=== PATIENT | female | born 1940 | race Caucasian/White ===

== ENCOUNTER 2017-07-30 07:25 | Inpatient (IN) | payer MEDICARE ==
--- NOTE | 2017-07-25 14:23 | HP ---
HISTORY AND PHYSICAL: DATE OF SURGERY: 07/30/17 DATE OF OFFICE VISIT: 07/24/17 SURGEON: Alejandra Kaur MD * (DICTATED BY SALLY VARGAS) PROCEDURE: Right total knee arthroplasty. CHIEF COMPLAINT: Right knee pain. HISTORY OF PRESENT ILLNESS: Ms. Mccormack is a 77-year-old female with continued complaints of right knee pain. She has failed conservative management, has elected to proceed with a right total knee arthroplasty, which is scheduled for 07/30/17, with Dr. Kaur. PAST MEDICAL HISTORY: Hypertension, high cholesterol, bradycardia, sleep apnea , and hypothyroidism. PAST SURGICAL HISTORY: Breast cyst removal, oophorectomy, cataract removal, diverticula removal, and tonsillectomy. CURRENT MEDICATIONS: 1. Nasonex. 2. Metformin 500 mg twice a day. 3. Allopurinol 100 mg once a day. 4. Valsartan 160 mg once a day. 5. Sertraline 50 mg once a day. 6. Tolterodine tartrate 2 mg twice a day. 7. Atorvastatin calcium 10 mg daily. 8. Levothyroxine 50 mcg daily. 9. Fish oil. 10. Multivitamin. 11. Vitamin C. 12. Calcium and vitamin D. ALLERGIES: SULFA, LEVAQUIN, and CODEINE causing facial swelling. FAMILY HISTORY: Diabetes, heart disease, DVT, and stroke. SOCIAL HISTORY: A 77-year-old female, she lives with her . She does not smokes or use drugs. She uses occasional alcohol. REVIEW OF SYSTEMS: A complete 14-point review of systems was reviewed with the patient and was all negative. PHYSICAL EXAMINATION GENERAL: She is well developed, well nourished, in no acute distress. She is alert and oriented x3, pleasant movement, appropriate effect. VITAL SIGNS: She stands 6 feet 2 inches tall, weighs 220 pounds. Her blood pressure is 142/68, heart rate is 70. HEENT: Normocephalic, atraumatic. NECK: Supple. No palpable lymph nodes. PULMONARY: Lungs are clear to auscultation bilaterally. CARDIO: Regular rate and rhythm. Strong S1 and S2. ABDOMEN: Soft, nontender, and nondistended. NEUROLOGIC: She is alert and oriented x3. Cranial nerves II through XII are intact. MUSCULOSKELETAL: Right lower extremity, the skin is intact. There are no open wounds or abrasions. She has moderate joint effusion and tenderness over the medial and lateral joint line, 5 to 125 degrees range of motion. Her lower extremity muscle group strength is intact at 5/5. She has 2+ dorsalis pedis pulses and intact sensation. ASSESSMENT AND PLAN: Ms. Mccormack is a 77-year-old female with complaints of right knee pain secondary to advanced osteoarthritis. She has failed conservative management and has elected to proceed with a right total knee arthroplasty, which is scheduled for 07/30/[address] Kaur discussed the risks and benefits of the surgery and all of her questions answered. Coumadin, Percocet, and Colace were sent to her pharmacy for postoperative pain control and DVT prophylaxis. She will see Dr. Kaur back 2 weeks after the surgery. SALLY VARGAS [id number]/[facility] #: [id number] EMILY
[~2017-07-30 07:25] MED LIST: Buffered Lidocaine 0.9% SYRIN* 5 ML/SYR SYRINGE INTRADERM ONE; Famotidine IV* 10 MG/ML 2 ML (20 mg) IV ONE; Gabapentin CAP(*) 300 MG PO ONE
[2017-07-30] MEDS ORDERED: Gabapentin CAP(*) 300 MG ONE (07:35)
[2017-07-30] MEDS ORDERED: Buffered Lidocaine 0.9% SYRIN* 5 ML/SYR SYRINGE ONE (07:35)
[2017-07-30] MEDS ORDERED: Famotidine IV* 10 MG/ML 2 ML (20 mg) ONE (07:35)
[2017-07-30] MEDS ORDERED: KETAMINE HCL* 50 MG/ML 10 ML VIAL ONE (07:46)
[2017-07-30] MEDS ORDERED: fentaNYL* 50 MCG/ML 2 ML VIAL (100 MCG VIAL) ONE (07:46)
[2017-07-30] MEDS ORDERED: Morphine PF AMP (0.5MG/ML)* 5 MG/10 ML AMP ONE (07:46)
[2017-07-30] MEDS ORDERED: Midazolam* 1 MG/ML 5 ML VIAL (5 MG) ONE (07:46)
[2017-07-30] MEDS ORDERED: Lidocaine 2% PF * 5 ML VIAL ONE ×2 (07:54→08:42)
[2017-07-30] MEDS ORDERED: Dexamethasone IV* 4 MG/ML 1 ML (4 MG) ONE (07:54)
[2017-07-30] MEDS ORDERED: Ketorolac INJ* 30 MG/ML 1 ML VIAL ONE (07:54)
[2017-07-30] MEDS ORDERED: Ondansetron INJ* 2 MG/ML VIAL ONE (07:54)
[2017-07-30] MEDS ORDERED: Propofol* 10 MG/ML 20 ML BTL IV PUSH ONE ×2 (07:54→11:46)
[2017-07-30] MEDS ORDERED: ceFAZolin 2 GM PREMIX (*) 50 ML IVPB ONE (07:58)
[2017-07-30] MEDS ORDERED: ROPIVACAINE 5 MG/ML 30 ML BTL (0.5%) ONE (08:37)
[2017-07-30] MEDS ORDERED: DiMENhydriNATE IV* 50 MG/ML VIAL IV PUSH PRN (09:33)
[2017-07-30] MEDS ORDERED: oxyCODONE/Acetamin 5/325 MG* TAB PO PRN (09:33)
[2017-07-30] MEDS ORDERED: HYDROmorphone* 1 MG/ML 1 ML CARPUJECT IV PRN (09:33)
[2017-07-30] MEDS ORDERED: Gabapentin CAP(*) 100 MG PO ONE (11:26)
[2017-07-30] MEDS ORDERED: Ondansetron INJ* 2 MG/ML VIAL IV PRN (11:27)
[2017-07-30] MEDS ORDERED: Naloxone* 0.4 MG/ML 1 ML VIAL IV PRN (11:27)
[2017-07-30] MEDS ORDERED: Nalbuphine* 20 MG/ML 1 ML VIAL IV PRN (11:27)
[2017-07-30] MEDS ORDERED: Glycopyrrolate IV* 0.2 MG/ML 1 ML VIAL ONE (11:35)
[2017-07-30] MEDS ORDERED: diPHENhydraMINE IV* 50 MG/ML 1 ml VIAL (BENADRYL) IV PRN (13:15)
[2017-07-30] MEDS ORDERED: Magnesium Hydroxide LIQ* 30 ML UDC PO PRN (13:15)
[2017-07-30] MEDS ORDERED: Bisacodyl SUPP* 10 MG SUPP PR PRN (13:15)
[2017-07-30] MEDS ORDERED: Polyethylene Glycol 3350* 17 GM PACKET PO PRN (13:15)
[2017-07-30] MEDS ORDERED: Dextrose 50% Syringe 50 ML* 25 GM/50 ML SYRINGE IV PUSH PRN (13:58)
--- NOTE | 2017-07-30 14:03 | RAD ---
Indication: Immediate postop exam following RIGHT total knee replacement. Comparison: February 18, 2017 radiographs. Technique: Portable AP and cross table lateral views RIGHT knee. Report: Status post total knee replacement. Surgical drain in place. Post-op fluid and gas is seen in the joint space and anterior subcutaneous tissues. Alignment is anatomic. No periprosthetic fracture evident. IMPRESSION: Unremarkable immediate postoperative appearance following RIGHT knee replacement.
[2017-07-30] MEDS: Ibuprofen TAB* 600 MG PO SCH ×3 (15:50→23:57)
--- NOTE | 2017-07-30 16:18 | CONS ---
CC: Dr. Isidra Salinas; Dr. Kaur * CONSULTATION REPORT: DATE OF CONSULT: 07/30/17 PRIMARY CARE PROVIDER: Dr. Isidra Salinas. ATTENDING PHYSICIAN WHILE IN THE HOSPITAL: Dr. Andrew Larkin (report dictated by Keith Norton NP). REQUESTING PHYSICIAN FOR CONSULT: Dr. Kaur. REASON FOR MEDICAL CONSULTATION: Evaluation of medical management and comorbid medical conditions. HISTORY OF PRESENT ILLNESS: Ms. Mccormack is a 77-year-old female patient who has a history of right knee pain for sometime, failing conservative management, underwent a right total knee replacement yesterday with Dr. Kaur as this was felt to be the next best therapeutic measure for the patient and appropriate measure for the patient. She failed conservative therapy and the pain is affecting daily living. She came with a history of hypertension, hyperlipidemia , bradycardia, NANO, hypothyroidism. She is prediabetic and a history of arthritis. She states that her resting heart rate is noted to be around 50s to the low 60s. Her preop EKG in fact was rate around 50. She was evaluated in the PACU. She said she is not having any chest pain. She denies having any abdominal pain. She does not feel lightheaded. She denies feeling presyncopal. She states that she does not have any chest discomfort. She does not feel short of breath. She states her pain is actually well controlled. She has slight numbness in her left leg, but otherwise states she is feeling quite well and there is no nausea and no vomiting. Because of her medical complexity, we were asked to evaluate in consult. PAST MEDICAL HISTORY: Significant for; 1. Hypertension. 2. Hyperlipidemia. 3. Bradycardia. 4. NANO. 5. Hypothyroidism. 6. History of prediabetes. 7. Arthritis. PAST SURGICAL HISTORY: 1. She has had a breast cyst removal. 2. Oophorectomy. 3. Cataract extraction. 4. Tonsillectomy. 5. She has had a polyp removed from her throat. HOME MEDICATIONS: Her home medications according to the preoperative list include: 1. Vitamin C 1000 mg p.o. daily. 2. Aspirin 81 mg daily. 3. Lipitor 10 mg daily. 4. Calcium citrate 1 tablet p.o. every other day. 5. Centrum Silver 1 tablet p.o. every other day. 6. Ibuprofen 600 mg p.o. b.i.d. as needed. 7. Synthroid 50 mcg p.o. daily. 8. Nasonex 1 spray daily as needed. 9. [place]-3 fatty acid 1 capsule p.o. every other day. 10. Zoloft 50 mg daily. 11. Detrol 2 mg p.o. b.i.d. 12. Diovan 320 mg p.o. daily. 13. Metformin 500 mg p.o. b.i.d. ALLERGIES TO MEDICATIONS: Include; 1. SULFA. 2. CODEINE. 3. LEVAQUIN. FAMILY HISTORY: Mother had a history of an CT and father at the age of 94. SOCIAL HISTORY: She does not smoke, does not drink. Surrogate decision maker is her . REVIEW OF SYSTEMS: There is no documented fever. Denied having any significant weight change. No double vision. No ear discharge. No rhinorrhea. No sore throat. No thyroid enlargement. Denies having any chest pain. There is no orthopnea. No nocturnal dyspnea. There is no abdominal pain. There is no nausea, no vomiting, no dysuria, no frequency, no seizure, no loss of consciousness, no pruritus, and no skin ulcerations. Review of 14 systems completed, all others negative. PHYSICAL EXAM: Vital Signs: Blood pressure 136/75, pulse 44, respirations 16, O2 sat 94%, and temperature 97.5. General: At this time, Ms. Mccormack is a 77- year-old female patient, she appears to be well nourished, well developed, does not appear to be in any acute distress. She is sitting in the PACU bed. HEENT : Head is atraumatic and normocephalic. Eyes: EOMs are intact. Sclerae anicteric and not pale. Neck: Supple. Throat: Oral mucosa appears to be moist. No oropharyngeal erythema. Heart: Sounds S1 and S2, regular rate and rhythm. No murmurs, rubs, or gallops were appreciated. Lungs: Clear to auscultation bilaterally. No wheezes, rales, or rhonchi. Abdomen: Soft, it was flat, nontender. Bowel sounds present. Extremities: Pulses were 2+ throughout. Distal CSM checks are intact to the right lower extremity. Neurologically, the patient is awake, alert, oriented x3. Tongue midline. Food And Beverage Intern are equal. No gross focal deficits. Skin: Grossly intact. DIAGNOSTIC STUDIES/LAB DATA: Preop revealed WBC of 8.1, RBC of 4.21, hemoglobin 13.0, hematocrit of 40, and platelet count of 222. INR 0.90, PTT of 31.9. Sodium was 142, potassium 4.5, chloride 106, bicarb 30, BUN 17, creatinine 0.08, and glucose of 74. Urine was obtained, it was negative. The patient preop did have an echo, which showed an EF of 55% to 60%. She had a preop stress test which showed no reversible ischemia. There was a preop Holter which showed minimum heart rate of 44, max 111, average is 63. There was a preop EKG, which showed a sinus bradycardia, rate of 54. No ST elevation or T-wave inversions. Preop chest x-ray showed no active disease. Old medical records were reviewed. ASSESSMENT AND PLAN: Ms. Mccormack is a 77-year-old female patient coming into the surgical services today for an elective right total knee. We were asked to evaluate in consult. My recommendations at this point are: 1. Status post right total knee. We will defer the management to Dr. Kaur and her team. 2. Hypertension. We will continue her Diovan. 3. Hyperlipidemia. Continue her current medical regimen. 4. History of bradycardia. Her heart rate right now is in the 40s, but she is completely asymptomatic. Her preop heart rate was 54. I suspect that the Duramorph is probably causing this to be a little lower, but she is asymptomatic. I do not think she needs telemetry monitoring. I am getting an EKG now, but on telemetry she does not appear to have any AV blocks. 5. Obstructive sleep apnea. We will go ahead and put her on her CPAP and will follow her O2 saturations for the first 24 hours. We will continue with monitoring. 6. Hypothyroidism. Continue meds as prescribed. 7. History of prediabetes. I will put her on a sliding scale. 8. Arthritis. She can follow up with primary. 9. DVT prophylaxis. We will defer to the primary team. 10. Code status. Full code. 11. Fluids, electrolytes, and nutrition. I would recommend a consistent carb diet. TIME SPENT: Time spent on the consult was approximately 60 minutes, greater than half of that time was spent [id number] with the patient obtaining my history and physical, the other half time was spent going over the plan of care with the patient and implementing plan of care. I did discuss the plan of care with my attending, Dr. Larkin, who is in agreement. KEITH NORTON NP [id number]/[facility] #: [id number] EMILY
[2017-07-30] MEDS ORDERED: Warfarin TAB(*) 6 MG PO ONE (17:00)
[2017-07-30] MEDS: Insulin LISPRO* 1 UNITS UNIT SUBCUT SCH (17:51)
[2017-07-30] MEDS: ceFAZolin 1 GM VIAL(*) 1 GM in NS 0.9% 50 ML* 50 ML IVPB SCH (17:57)
[2017-07-30] MEDS: oxyCODONE/Acetamin 5/325 MG* TAB PO PRN ×2 (17:57→22:02)
[2017-07-30] MEDS ORDERED: metFORMIN* 500 MG TAB PO SCH (21:00)
[2017-07-30] MEDS: Docusate CAP* 100 MG PO SCH (21:44)
[2017-07-30] MEDS: Oxybutynin TAB* 5 MG PO SCH (21:44)
[2017-07-31] MEDS: oxyCODONE/Acetamin 5/325 MG* TAB PO PRN ×5 (02:12→20:43)
[2017-07-31] MEDS ORDERED: Acetaminophen TAB* 325 MG PO PRN (02:28)
[2017-07-31] MEDS ORDERED: Morphine INJ* 4 MG/ML 1 ML CARPUJECT IV PRN (02:29)
[2017-07-31] MEDS ORDERED: oxyCODONE TAB* 5 MG TAB PO PRN (02:29)
[2017-07-31] MEDS: ceFAZolin 1 GM in Dextrose (*) 1 GM/50 ML BAG IVPB SCH ×2 (02:33→10:02)
[2017-07-31] MEDS: ceFAZolin 1 GM VIAL(*) 1 GM in NS 0.9% 50 ML* 50 ML IVPB SCH (03:20)
[2017-07-31] MEDS ORDERED: Ondansetron TAB* 4 MG PO PRN (03:28)
[2017-07-31] MEDS ORDERED: Ondansetron INJ* 2 MG/ML VIAL IV PRN (03:28)
[2017-07-31 05:45] LABS: Hematocrit 29 % (35-47); Hemoglobin 9.6 g/dl (12.0-16.0)
[2017-07-31 05:59] LABS: BUN/Creatinine Ratio 17.1 (8-20); Calcium 8.6 mg/dL (8.6-10.3); EGFR African American 44.8 (>60); EGFR Non-African American 34.8 (>60); Potassium 4.1 mmol/L (3.5-5.0)
[2017-07-31] MEDS: Levothyroxine TAB* 50 MCG TAB PO SCH (06:07)
[2017-07-31] MEDS: Insulin LISPRO* 1 UNITS UNIT SUBCUT SCH ×3 (08:16→17:34)
[2017-07-31] MEDS: Oxybutynin TAB* 5 MG PO SCH ×2 (08:18→20:05)
[2017-07-31] MEDS: Docusate CAP* 100 MG PO SCH ×2 (08:18→20:05)
[2017-07-31] MEDS: Valsartan TAB* 160 MG PO SCH (08:18)
[2017-07-31] MEDS: Atorvastatin* 10 MG TAB PO SCH (08:18)
[2017-07-31] MEDS: Ascorbic Acid TAB* 500 MG PO SCH (08:18)
[2017-07-31] MEDS: Sertraline* 50 MG TAB PO SCH (08:18)
[2017-07-31] MEDS ORDERED: Valsartan TAB* 160 MG PO SCH (09:00)
[2017-07-31] MEDS: Enoxaparin(*) 30 MG/0.3 ML SYR SUBCUT SCH (11:03)
--- NOTE | 2017-07-31 11:52 | PN ---
Progress Note - Progress Note Date of Service: 07/31/17 SOAP: Subjective: [Pt was seen this am sitting up in a chair. She states that her knee is a little painful. She overall feels that she is doing quite well. She denies any n/t. No chest pain, cough or SOB. No calf pain. ] Objective: [General: Pt is alert, awake and oriented. NAD RLE: Dressing is clean, dry and intact. Hemovac drain was pulled today and was found to have 250 ccs of blood. Calf is soft and non tender. + df/pf. NVI. ] Vital Signs Temp 97.7 F 07/31/17 11:12 Pulse 46 07/31/17 11:30 Resp 17 07/31/17 11:12 BP 112/40 07/31/17 11:30 Pulse Ox 94 07/31/17 11:12 Intake & Output 07/30/17 07/31/17 07/31/17 18:59 06:59 18:59 Intake Total 1312 2099 225 Output Total 325 425 200 Balance 987 1674 25 Weight 219 lb 6.4 oz Intake: IV Fluids 1000 1099 ABX - CEFAZOLIN 119 LR 1000 980 Oral 312 1000 225 Output: Georges 325 425 200 Other: # Bowel Movements 0 Assessment: [POD 1 S/P RTKA] Plan: [INR: 0.98, 8mg of warfarin tonight PT/OT Georges out today Dressing change tomorrow. Possible D/C home tomorrow
--- NOTE | 2017-07-31 14:31 | PN ---
Subjective Date of Service: 07/31/17 Interval History: Patient seen and examined at bedside. Reports good pain control from medication Denies chest pain, SOB, fever/chills. No acute concerns at this time. Family History: Unchanged from Admission Social History: Unchanged from Admission Past Medical History: Unchanged from Admission Objective Active Medications: Acetaminophen (Tylenol Tab*) 650 mg PO Q4H PRN PRN Reason: PAIN OR TEMPERATURE Ascorbic Acid (Vitamin C Tab*) 1,000 mg PO QAM [facility] Last Admin: 07/31/17 08:18 Dose: 1,000 mg Atorvastatin Calcium (Lipitor*) 10 mg PO QAM [facility] Last Admin: 07/31/17 08:18 Dose: 10 mg Bisacodyl (Dulcolax Supp*) 10 mg CA DAILY PRN PRN Reason: constipation Dextrose (D50w Syringe 50 Ml*) 12.5 gm IV PUSH .FOR FS < 60 - SS PRN PRN Reason: FS < 60 Diphenhydramine HCl (Benadryl Iv*) 12.5 mg IV Q6H PRN PRN Reason: PRURITIS Docusate Sodium (Colace Cap*) 100 mg PO BID [facility] Last Admin: 07/31/17 08:18 Dose: 100 mg Enoxaparin Sodium (Lovenox(*)) 30 mg SUBCUT Q24H [facility] Last Admin: 07/31/17 11:03 Dose: 30 mg Lactated Ringer's (Lactated Ringers 1000 Ml Bag*) 1,000 mls @ 100 mls/hr IV PER RATE [facility] Last Admin: 07/31/17 12:34 Dose: 100 mls/hr Insulin Human Lispro (Humalog*) 0 units SUBCUT AC [facility] PRN Reason: Protocol Last Admin: 07/31/17 12:21 Dose: Not Given Lactulose (Lactulose*) 30 ml PO Q6H PRN PRN Reason: constipation Levothyroxine Sodium (Synthroid Tab*) 50 mcg PO QAM@0600 [facility] Last Admin: 07/31/17 06:07 Dose: 50 mcg Magnesium Hydroxide (Milk Of Magnesia Liq*) 30 ml PO Q6H PRN PRN Reason: constipation Morphine Sulfate (Morphine Inj (Syringe)*) 2 mg IV Q2H PRN PRN Reason: PAIN Ondansetron HCl (Zofran Inj*) 4 mg IV Q6H PRN PRN Reason: nausea Ondansetron HCl (Zofran Tab*) 4 mg PO Q6H PRN PRN Reason: NAUSEA Oxybutynin Chloride (Ditropan Tab*) 5 mg PO BID [facility] Last Admin: 07/31/17 08:18 Dose: 5 mg Oxycodone HCl (Roxycodone Tab*) 10 mg PO Q4H PRN PRN Reason: SEVERE PAIN Oxycodone/Acetaminophen (Percocet 5/325 Tab*) 1 tab PO Q3H PRN PRN Reason: PAIN - MODERATE Oxycodone/Acetaminophen (Percocet 5/325 Tab*) 2 tab PO Q3H PRN PRN Reason: PAIN - MODERATE Last Admin: 07/31/17 12:23 Dose: 2 tab Polyethylene Glycol/Electrolytes (Miralax*) 17 gm PO DAILY PRN PRN Reason: Constipation Sertraline HCl (Zoloft*) 50 mg PO [facility] Last Admin: 07/31/17 08:18 Dose: 50 mg Valsartan (Diovan Tab*) 320 mg PO [facility] Last Admin: 07/31/17 08:18 Dose: 320 mg Warfarin Sodium (Coumadin Tab(*)) 8 mg PO ONCE@1700 ONE PRN Reason: Protocol Stop: 07/31/17 17:01 Vital Signs 07/30/17 07/30/17 07/30/17 14:45 15:00 15:15 Temperature Pulse Rate 47 43 43 Respiratory 18 18 19 Rate Blood Pressure 129/81 150/79 151/74 (mmHg) O2 Sat by Pulse 97 96 97 Oximetry 07/30/17 07/30/17 07/30/17 15:40 15:52 15:59 Temperature 97.7 F Pulse Rate 41 41 Respiratory 16 16 16 Rate Blood Pressure 157/54 157/54 (mmHg) O2 Sat by Pulse 98 98 Oximetry 07/30/17 07/30/17 07/30/17 16:35 17:28 17:41 Temperature 97.7 F 98.0 F Pulse Rate 44 49 Respiratory 20 20 20 Rate Blood Pressure 169/54 156/49 (mmHg) O2 Sat by Pulse 98 98 Oximetry 07/30/17 07/30/17 07/30/17 17:57 18:32 19:25 Temperature 97.5 F Pulse Rate 50 Respiratory 16 20 Rate Blood Pressure 122/78 (mmHg) O2 Sat by Pulse 98 98 Oximetry 07/30/17 07/30/17 07/30/17 19:28 19:57 20:24 Temperature Pulse Rate Respiratory 16 16 20 Rate Blood Pressure (mmHg) O2 Sat by Pulse 95 Oximetry 07/30/17 07/30/17 07/30/17 21:27 21:28 22:02 Temperature 98.0 F Pulse Rate 50 Respiratory 20 20 16 Rate Blood Pressure 125/47 (mmHg) O2 Sat by Pulse 98 Oximetry 07/30/17 07/30/17 07/31/17 22:28 23:55 00:00 Temperature 97.6 F Pulse Rate 50 Respiratory 20 18 16 Rate Blood Pressure 124/50 (mmHg) O2 Sat by Pulse 96 94 Oximetry 07/31/17 07/31/17 07/31/17 02:12 02:15 02:31 Temperature Pulse Rate Respiratory 16 16 Rate Blood Pressure (mmHg) O2 Sat by Pulse 96 Oximetry 07/31/17 07/31/17 07/31/17 03:44 03:45 04:12 Temperature 97.6 F 97.6 F Pulse Rate 48 48 Respiratory 18 18 16 Rate Blood Pressure 114/43 114/43 (mmHg) O2 Sat by Pulse 99 99 Oximetry 07/31/17 07/31/17 07/31/17 06:07 06:15 07:30 Temperature 97.3 F Pulse Rate 46 Respiratory 16 18 16 Rate Blood Pressure 127/44 (mmHg) O2 Sat by Pulse 99 Oximetry 07/31/17 07/31/17 07/31/17 08:00 08:07 11:12 Temperature 97.7 F Pulse Rate 41 Respiratory 16 16 17 Rate Blood Pressure 102/36 (mmHg) O2 Sat by Pulse 99 94 Oximetry 07/31/17 07/31/17 11:30 12:23 Temperature Pulse Rate 46 Respiratory 16 Rate Blood Pressure 112/40 (mmHg) O2 Sat by Pulse Oximetry Oxygen Devices in Use Now: Nasal Cannula Appearance: Female patient, lying in bed, NAD Eyes: No Scleral Icterus Ears/Nose/Mouth/Throat: Clear Oropharnyx, Mucous Membranes Moist Neck: NL Appearance and Movements; NL JVP Respiratory: Symmetrical Chest Expansion and Respiratory Effort, Clear to Auscultation Cardiovascular: NL Sounds; No Murmurs; No JVD, RRR Abdominal: NL Sounds; No Tenderness; No Distention Extremities: - - right knee dressing c/d/i, distally nvi Neurological: Alert and Oriented x 3, NL Muscle Strength and Tone Lines/Tubes/Other Access: Clean, Dry and Intact Peripheral IV Nutrition: Taking PO's Result Diagrams: 07/31/17 05:30 07/31/17 05:30 Assess/Plan/Problems-Billing Assessment: Ms. Mccormack is a 77 yo female patient with a PMH of HTN, HLD, bradycardia, NANO, hypothyrodisim, prediabetes, and OA who as admitted on 07/30/17 for elective right total knee replacement. - Patient Problems (1) Status post total right knee replacement Code(s): Z96.651 - PRESENCE OF RIGHT ARTIFICIAL KNEE JOINT Comment: POD #1, management per ortho Continue pain management PT/OT (2) HTN (hypertension) Code(s): I10 - ESSENTIAL (PRIMARY) HYPERTENSION Comment: Normotensive Continue valsartan with hold parameters. (3) HLD (hyperlipidemia) Code(s): E78.5 - HYPERLIPIDEMIA, UNSPECIFIED Comment: Continue statin. (4) Bradycardia Code(s): R00.1 - BRADYCARDIA, UNSPECIFIED Comment: HR 40s-50s, trending up EKG shows sinus bradycardia Patient asymptomatic, likely exacerbated by Duramorph Cont to monitor. (5) NANO (obstructive sleep apnea) Code(s): G47.33 - OBSTRUCTIVE SLEEP APNEA (ADULT) (PEDIATRIC) Comment: Continue CPAP (6) Hypothyroidism Code(s): E03.9 - HYPOTHYROIDISM, UNSPECIFIED Comment: Continue levothyroxine. (7) Pre-diabetes Code(s): R73.03 - PREDIABETES Comment: Controlled Continue Lispro SSI Hold home metformin (8) DVT prophylaxis Comment: Per ortho Enoxaparin and warfarin Status and Disposition: Inpatient admit. Dispo per ortho. Hospitalist co medical management.
[2017-07-31] MEDS ORDERED: Warfarin TAB(*) 4 MG PO ONE (17:00)
--- NOTE | 2017-07-31 22:08 | OP ---
DATE OF OPERATION: 07/30/17 - ROOM #349 DATE OF : 42 SURGEON: Alejandra Kaur MD VOLUNTEER MANAGER: SALLY Mejía. Mr. Fernandez did help throughout the procedure with preparation of the leg, wound retraction, manipulation of the knee, and wound closure. ANESTHESIOLOGIST: Terra Palomares MD ANESTHESIA: Spinal. PRE-OP DIAGNOSIS: Severe end-stage degenerative osteoarthritis of the right knee joint. POST-OP DIAGNOSIS: Severe end-stage degenerative osteoarthritis of the right knee joint. OPERATIVE PROCEDURE: Right total knee arthroplasty. INDICATIONS: Ms. Mccormack is a 77-year-old female with years of increasingly severe right knee pain. She failed conservative treatment with the anti- inflammatories, pain medications, intraarticular injections, and physical therapy. Radiographs showed [id number] arthritis. She elected to undergo right total knee arthroplasty. Informed consent was obtained from the patient. She understood the risks of the procedure included, but were not limited to bleeding, infection, damage to nearby structures, continued pain, need for further surgery, intraoperative fracture, nerve palsy, hardware failure or loosening, knee stiffness, loss of motion, stroke, heart attack, blood clot, and . She wished to procedure. HARDWARE USED: This is [employer] cemented total knee arthroplasty hardware. Two packages of simplex bone cement. For the femur, a size 6 right posterior stabilized Legion Narrow femoral component. For the tibia, a size 5 tibial base plate right. For the patella, 32 mm, 7.5 thickness, 3-peg all poly patella. For the insert, an 11-mm posterior stabilized articular insert size 5/ 6. TOURNIQUET TIME: 60 minutes. COMPLICATIONS: None. EBL: 300 cc. SPECIMEN: Bone and cartilage from the right knee joint sent to Pathology. INTRAOPERATIVE FINDINGS: Intraoperatively, the patient was noted to have severe end-stage arthritis of the right knee joint with complete loss of cartilage in a tricompartmental fashion. DESCRIPTION OF PROCEDURE: Ms. Mccormack was identified in the preanesthesia unit. Her right lower quadrant was marked as the correct operative side. Informed consent was signed and placed in the chart. The patient was taken to the operating room and placed under spinal anesthesia without difficulty. A Georges catheter was placed. Tourniquet was placed on the right thigh. Right lower extremity was prepped and draped in the usual sterile fashion. Preop time-out was made to correctly identify the patient's side and site. Appropriate perioperative antibiotics were given within 1 hour of incision. Tourniquet was inflated until tourniquet time for this procedure was 60 minutes. A 10-blade was used to make a 14-cm midline incision, carried down to the extensor mechanism. A new 10 blade was used to make a standard medial peripatellar arthrotomy. Patella was subluxed laterally. Electrocautery was used to subperiosteally elevate soft tissue off the superomedial tibia to the mid sagittal plane. The knee was flexed up. The anterior horn of the lateral meniscus and ACL were sharply released. A drill was used to enter the distal femur. Intramedullary distal femoral cutting guide was pinned on the distal femur. Oscillating saw was used to remove 9 mm of distal femoral bone. External rotation guide was pinned on the distal femur and the distal femur was sized to a size 6. Size 6 multi-cutting jig was pinned on the distal femur. Oscillating saw was used to make the appropriate chamfer cuts. PCL was completely released and the tibia was subluxed anteriorly. Extramedullary tibial cutting guide was pinned on the proximal tibia. Oscillating saw was used to make the appropriate proximal tibial cut perpendicular to the mechanical axis of the tibia. The bone was carefully removed. The knee was put out into extension and had good medial and lateral ligamentous balancing. The spacer block fit with full extension. Flexion and extension gaps were well balanced. The knee was flexed up. Lamina freezer worker was placed both medially and laterally. Any remaining meniscus was carefully excised using electrocautery. Curved osteotome was used to remove any posterior osteophytes. Trial size 6 narrow right femur was impacted on to the distal femur. This trial had good fit. The box for the posterior stabilized implant was prepared using a reamer and box cut osteotome. Trial size 5 tibial tray with an 11-mm insert trial was placed. The knee was taken through range of motion and noted to have full extension to 130 degrees of flexion with satisfactory patello-femoral tracking. Patella was everted. 7 mm of patellar bone and cartilage was carefully removed with an oscillating saw. The patella was sized to a size 32. Three peg holes were drilled through the size 32 guide. Trial patella was placed and the knee was taken through a range of motion. Patellofemoral tracking was satisfactory. All implants were carefully removed. The tibia was subluxed anteriorly and sized to a size 5. Proximal tibia was prepared using size 5 keel punch. All bony cut surfaces were copiously irrigated with sterile saline and dried. Final implants were cemented into place starting with the tibia, followed by the femur, and lastly the patella. An 11-mm insert was placed while the knee was brought into full extension. Tourniquet was turned down at 60 minutes. The cement was allowed to fully cure and the knee was copiously irrigated with sterile saline. Once the cement was fully cured, the insert trial was removed. Any excess cement was carefully removed from around the implants and capsule. Electrocautery was used to obtain meticulous hemostasis. Final insert chosen was an 11-mm posterior stabilized articular insert. This was locked into position on tibial tray. Position of the insert was checked and rechecked and noted to be stable. The knee was once again copiously irrigated with sterile saline. Extensor mechanism was closed over a medium Hemovac drain using interrupted #1 Vicryl's. The rest of the incision was closed in a layered fashion using 0 and 2-0 Vicryl' s. Skin was closed using running 3-0 nylon suture. Sterile Xeroform, 4x4's, and Webril were used to cover the incision. Maxi wrap and cold pack were placed over this. The patient's anesthesia was reversed without difficulty. She was taken to the PACU in stable condition. Intended DVT prophylaxis will be Coumadin with the Lovenox bridge. Intended weightbearing will be weightbearing as tolerated. [id number]/[facility] #: [id number] EMILY
[2017-08-01] MEDS: Levothyroxine TAB* 50 MCG TAB PO SCH (05:08)
[2017-08-01] MEDS: oxyCODONE/Acetamin 5/325 MG* TAB PO PRN ×3 (05:09→12:55)
[2017-08-01 07:00] LABS: Hematocrit 25 % (35-47); Hemoglobin 8.6 g/dl (12.0-16.0)
--- NOTE | 2017-08-01 07:27 | PN ---
Progress Note - Progress Note Date of Service: 08/01/17 SOAP: Subjective: [Pt. doing well. c/o pain R knee when trying to bend it - rates pain 8/10. Reports physical therapy is going well. Feels ready to go home today. Denies CP, SOB, nausea, dizziness.] Objective: [A and O x 3, VSS, NAD Sitting in bed - appears comfortable Dressing changed R knee. Surgical incision benign. No drainage or erythema. Calf soft, NT. NV function intact. Gross motor intact. Vital Signs: Temp Pulse Resp BP Pulse Ox 98.4 F 78 16 133/38 95 08/01/17 03:38 08/01/17 03:38 08/01/17 05:09 08/01/17 03:38 08/01/17 03:38 Laboratory Results - last 24 hr 07/31/17 07/31/17 07/31/17 07:25 12:18 17:33 Hgb Hct INR (Anticoag Therapy) POC Glucose (mg/dL) 141 H 118 H 130 H 08/01/17 08/01/17 06:35 06:37 Hgb 8.6 L Hct 25 L INR (Anticoag Therapy) 1.24 H POC Glucose (mg/dL) ] Assessment: [77 you female s/p R TKA POD #2] Plan: [Pain management PT Coumadin 8 mg today D/C home this afternoon. F/U with Dr. Kaur in two weeks. ]
[2017-08-01] MEDS: Insulin LISPRO* 1 UNITS UNIT SUBCUT SCH ×2 (08:17→12:28)
[2017-08-01] MEDS: Oxybutynin TAB* 5 MG PO SCH (08:19)
[2017-08-01] MEDS: Atorvastatin* 10 MG TAB PO SCH (08:19)
[2017-08-01] MEDS: Sertraline* 50 MG TAB PO SCH (08:19)
[2017-08-01] MEDS: Ascorbic Acid TAB* 500 MG PO SCH (08:19)
[2017-08-01] MEDS: Docusate CAP* 100 MG PO SCH (08:19)
[2017-08-01] MEDS: Valsartan TAB* 160 MG PO SCH (08:19)
[2017-08-01] MEDS: Enoxaparin(*) 30 MG/0.3 ML SYR SUBCUT SCH (10:47)
[2017-08-01 12:28] VITALS: BP 119/46
== END 2017-08-01 15:30 | disposition home health service (06) | DRG 470 ==
LOC: AA 07:25 → SSU 15:44
PROVIDERS: ADMIT Orthopaedic Surgery Adult Reconstructive Orthopaedic Surgery; ATTEND Orthopaedic Surgery Adult Reconstructive Orthopaedic Surgery
PROC: 0SRC0J9 Replacement of Right Knee Joint with Synthetic Substitute, Cemented, Open Approach (ICD-10-PCS; principal; 2017-07-30 09:30)
DX: M17.11 Unilateral primary osteoarthritis, right knee (principal); R00.1 Bradycardia, unspecified; I10 Essential (primary) hypertension; E78.00 Pure hypercholesterolemia, unspecified; E03.9 Hypothyroidism, unspecified; G47.33 Obstructive sleep apnea (adult) (pediatric); R73.03 Prediabetes; M25.761 Osteophyte, right knee; Z96.1 Presence of intraocular lens; M10.9 Gout, unspecified; F32.9 Major depressive disorder, single episode, unspecified; Z98.42 Cataract extraction status, left eye; Z98.41 Cataract extraction status, right eye; Z97.4 Presence of external hearing-aid; Z90.722 Acquired absence of ovaries, bilateral; Z88.2 Allergy status to sulfonamides; Z88.1 Allergy status to other antibiotic agents; Z88.5 Allergy status to narcotic agent; Z83.3 Family history of diabetes mellitus; Z82.49 Family history of ischemic heart disease and other diseases of the circulatory system; Z82.3 Family history of stroke; Z83.2 Family history of diseases of the blood and blood-forming organs and certain disorders involving the immune mechanism; Z72.89 Other problems related to lifestyle
CPT/HCPCS: 36415; 80048; 85014; 85018; 85610; 88305; 88311; 93005; A9270-GY; C1776; J0690; J1100; J1200; J1650; J1885; J2250; J2405; J2704; J2795; J3010

== ENCOUNTER 2017-08-04 17:47 | Emergency (ER) | payer MEDICARE ==
[2017-08-04] MEDS ORDERED: oxyCODONE/Acetamin 5/325 MG* TAB PO ONE (18:44)
[2017-08-04] MEDS ORDERED: NS 0.9% 1000 ML* 1,000 ML IV SCH (18:45)
[2017-08-04] MEDS ORDERED: NS 0.9% 1000 ML* 1,000 ML IV ONE (18:46)
[2017-08-04 19:18] LABS: Hematocrit 25 % (35-47); Hemoglobin 8.8 g/dl (12.0-16.0); Mean Corpuscular HGB Conc 35 g/dl (31-36); Mean Corpuscular Hemoglobin 32 pg (27-31); Mean Corpuscular Volume 93 fL (80-97); Mean Platelet Volume 8 um3 (7.4-10.4); Red Blood Count 2.72 10^6/ul (4.0-5.4); Red Cell Distribution Width 13 % (10.5-15); White Blood Count 8.5 10^3/ul (3.5-10.8)
[2017-08-04 19:32] LABS: Albumin 3.5 g/dL (3.2-5.2); BUN/Creatinine Ratio 22.9 (8-20); C Reactive Protein 104.46 mg/L (< 5.00); Calcium 9.2 mg/dL (8.6-10.3); EGFR African American 57.3 (>60); EGFR Non-African American 44.5 (>60); Globulin 3.2 g/dL (2-4); Total Bilirubin 0.6 mg/dL (0.2-1.0); Total Protein 6.7 g/dL (6.4-8.9)
[2017-08-04] MEDS ORDERED: Iodixanol* (CONTRAST) 320 MG/ML 100 ML SDV IV ONE (19:40)
--- NOTE | 2017-08-04 19:40 | RAD ---
Indication: Medial RIGHT knee pain. Total knee replacement July 30, 2017. Comparison: July 30, 2017 Technique: AP and crosstable lateral views RIGHT knee Report: RIGHT total knee prosthesis in place without evidence for loosening or periprosthetic fracture. Minimal joint effusion. Soft tissue swelling most prominent anteriorly. IMPRESSION: No significant abnormality following recent total joint replacement.
--- NOTE | 2017-08-04 19:49 | RAD ---
INDICATION: RIGHT lower extremity pain and edema. Recent trauma and immobility. COMPARISON: No relevant prior exams available [place] [facility] [place] TECHNIQUE: Lee scale, color Doppler, and spectral analysis of the deep veins of the RIGHT lower extremity. Vessel compression, phasicity, and augmentation assessed. REPORT: The RIGHT common femoral, great saphenous, profunda femoral, femoral, popliteal, peroneal, and posterior tibial veins are patent. Patency of the LEFT common femoral vein documented. IMPRESSION: No evidence for RIGHT lower extremity deep venous thrombosis.
--- NOTE | 2017-08-04 20:41 | RAD ---
INDICATION: RIGHT knee replacement July 30, 2017. Hypoxia. Difficulty ambulating. Assess for PE. COMPARISON: July 24, 2017 chest radiograph. TECHNIQUE: Multidetector CT images were obtained from the lung apices to the upper abdomen with 89 mL Visipaque 320 IV contrast. Pulmonary angiogram protocol. Multiplanar reformation including with maximum intensity projection. REPORT: Minimal RIGHT basilar subsegmental atelectasis. Negative for pleural effusion or pneumothorax. Negative for lymphadenopathy. Upper normal heart size. Negative for pericardial effusion. Assessment of the pulmonary arteries is mildly limited due to suboptimal opacification of the pulmonary arteries and respiratory motion artifact. Nonetheless there is no compelling filling defect at the main through segmental and where conspicuous subsegmental pulmonary arteries to indicate pulmonary embolism. Limited images through the upper abdomen are remarkable for a subcentimeter water density lesion at the inferior RIGHT posterior hepatic segment consistent with a hepatic cyst without concern. Negative for suspicious osseous lesions. IMPRESSION: 1. Mildly limited CT pulmonary angiogram without compelling evidence for pulmonary embolism. 2. Minimal RIGHT basilar subsegmental atelectasis.
--- NOTE | 2017-08-04 21:12 | ED ---
Kirt Vasquez Alfonso, scribed for Dayton Real MD on 08/04/17 at 1826 . Lower Extremity - HPI Summary HPI Summary: This patient is a 77 year old F presenting to [facility] accompanied by with a chief complaint of right knee pain since 5 days ago. 5 days ago she had a right knee replacement done by Dr. Kaur. The pain is described as sharp and hot. The patient rates the pain 9/10 in severity. Symptoms aggravated by position. Symptoms alleviated by nothing. Patient reports right knee swelling, right knee erythema, and inability to ambulate. Patient denies SOB, fever, and chills. - History of Current Complaint Chief Complaint: EDExtremityLower Stated Complaint: UNABLE TO WALK Time Seen by Provider: 08/04/17 18:20 Hx Obtained From: Patient Onset of Pain: Days - 5 Onset/Duration: Days Severity Initially: Severe Severity Currently: Severe Pain Intensity: 9 Pain Scale Used: 0-10 Numeric Timing: Constant Location: Is Discrete @ - right knee Character Of Pain: Sharp - and "hot" Associated Signs And Symptoms: Positive: Swelling, Redness Aggravating Factor(s): Other - position Alleviating Factor(s): Nothing Able to Bear Weight: No - Allergies/Home Medications Allergies/Adverse Reactions: Allergies Allergy/AdvReac Type Severity Reaction Status Date / Time Codeine Allergy Severe FACIAL Verified 07/30/17 07:52 EDEMA Sulfa Antibiotics Allergy Intermediate Rash Verified 07/30/17 07:52 Levofloxacin [From Levaquin] Allergy DOES NOT Verified 07/30/17 07:52 WANT TO TAKE THIS MED PMH/Surg Hx/FS Hx/Imm Hx Endocrine/Hematology History: Reports: Hx Diabetes - BORDERLINE, Hx Thyroid Disease - HYPOTHYROID Cardiovascular History: Reports: Hx Hypertension, Other Cardiovascular Problems/ Disorders - MILD HEART DAMAGE SHOWED EKG-NO HOUSE MOTHER Respiratory History: Reports: Hx Sleep Apnea Denies: Other Respiratory Problems/Disorders GI History: Denies: Other GI Disorders History: Reports: Hx Kidney Infection - A CHILD-AGE 9 Musculoskeletal History: Reports: Hx Arthritis - FINGERS,RIGHT KNEE, NECK, Hx Bursitis - RECENTLY- STATES IS STANDS FOR 2 HOURS- HAS TINGLING IN THE RIGHT LEG , Other Musculoskeletal History - GOUT LEFT GREAT Sensory History: Reports: Hx Cataracts - VINCE, Hx Contacts or Glasses - GLASSES, Hx Hearing Aid - BILATERAL Opthamlomology History: Reports: Hx Cataracts - VINCE, Hx Contacts or Glasses - GLASSES Neurological History: Denies: Other Neuro Impairments/Disorders Psychiatric History: Reports: Hx Depression - ON MEDICATION FOR-ON METFORMIN AND ZOLOFT TO CONTROL EATING HABITS - Cancer History Hx Chemotherapy: No Hx Radiation Therapy: No - Surgical History Surgery Procedure, Year, and Place: CYST FROM LEFT BREAST, 1980S,[place]. OVARY REMOVED, , [place]. RIGHT EYE [id number] Hx Anesthesia Reactions: No Infectious Disease History: No Infectious Disease History: Denies: Traveled Outside the [place] in Last 30 Days - Family History Known Family History: Positive: Cardiac Disease, Diabetes, Other - Blood clot - Social History Alcohol Use: Weekly Alcohol Amount: NONE IN THE LAST 2 WEEKS Substance Use Type: Reports: None Smoking Status (MU): Never Smoked Tobacco Have You Smoked in the Last Year: No Review of Systems Negative: Fever, Chills Negative: Shortness Of Breath Positive: Other - Right knee pain, right knee swelling, right knee erythema, and inability to ambulate All Other Systems Reviewed And Are Negative: Yes Physical Exam Triage Information Reviewed: Yes Vital Signs On Initial Exam: Initial Vitals Temp Pulse Resp BP Pulse Ox 100.0 F 69 18 167/55 93 08/04/17 17:48 08/04/17 17:48 08/04/17 17:48 08/04/17 17:48 08/04/17 17:48 Vital Signs Reviewed: Yes Appearance: Positive: Well-Appearing, No Pain Distress Skin: Positive: Warm, Skin Color Reflects Adequate Perfusion, Dry, Other - Right LE ecchymosis. Surgical wound is sutured, clean, dry, and intact. No drainage. Head/Face: Positive: Normal Head/Face Inspection Eyes: Positive: EOMI, HAN ENT: Positive: Normal ENT inspection Neck: Positive: Supple, Nontender Respiratory/Lung Sounds: Positive: Clear to Auscultation, Breath Sounds Present , Other - O2 sat between 92-96 on room air. Cardiovascular: Positive: RRR, Other - Good dorsalis pedis and posterior tibial pulses. Good capillary refills. Abdomen Description: Positive: Nontender, Soft Bowel Sounds: Positive: Present Musculoskeletal: Positive: Strength/ROM Intact, Other - Mildly tender around sutures, medial knee, upper calf, and inner upper thigh. Neurological: Positive: Normal, Sensory/Motor Intact, Alert, Oriented to Person Place, Time Psychiatric: Positive: Affect/Mood Appropriate Diagnostics - Vital Signs Vital Signs Temp Pulse Resp BP Pulse Ox 08/04/17 17:48 100.0 F 69 18 167/55 93 - Laboratory Lab Results: Lab Results 08/04/17 08/04/17 08/04/17 Range/Units 19:00 19:00 19:00 WBC (3.5-10.8) 10^3/ul RBC (4.0-5.4) 10^6/ul Hgb (12.0-16.0) g/dl Hct (35-47) % MCV (80-97) fL MCH (27-31) pg MCHC (31-36) g/dl RDW (10.5-15) % Plt Count (150-450) 10^3/ul MPV (7.4-10.4) um3 Neut % (Auto) (38-83) % Lymph % (Auto) (25-47) % Rincon % (Auto) (1-9) % Eos % (Auto) (0-6) % Baso % (Auto) (0-2) % Absolute Neuts (auto) (1.5-7.7) 10^3/ul Absolute Lymphs (auto) (1.0-4.8) 10^3/ul Absolute Monos (auto) (0-0.8) 10^3/ul Absolute Eos (auto) (0-0.6) 10^3/ul Absolute Basos (auto) (0-0.2) 10^3/ul Absolute Nucleated RBC 10^3/ul Nucleated RBC % INR (Anticoag Therapy) 0.90 (0.89-1.11) APTT 27.8 (26.0-36.3) seconds Sodium 138 (133-145) mmol/L Potassium 4.0 (3.5-5.0) mmol/L Chloride 104 (101-111) mmol/L Carbon Dioxide 27 (22-32) mmol/L Anion Gap 7 (2-11) mmol/L BUN 27 H (6-24) mg/dL Creatinine 1.18 H (0.51-0.95) mg/dL Est GFR ( Amer) 57.3 (>60) Est GFR (Non-Af Amer) 44.5 (>60) BUN/Creatinine Ratio 22.9 H (8-20) Glucose 109 H (70-100) mg/dL Lactic Acid (0.5-2.0) mmol/L Calcium 9.2 (8.6-10.3) mg/dL Total Bilirubin 0.60 (0.2-1.0) mg/dL AST 25 (13-39) U/L ALT 14 (7-52) U/L Alkaline Phosphatase 58 (34-104) U/L C-Reactive Protein 104.46 H (< 5.00) mg/L B-Natriuretic Peptide 55 ( - 100) pg/mL Total Protein 6.7 (6.4-8.9) g/dL Albumin 3.5 (3.2-5.2) g/dL Globulin 3.2 (2-4) g/dL Albumin/Globulin Ratio 1.1 (1-3) 08/04/17 08/04/17 Range/Units 19:00 19:00 WBC 8.5 (3.5-10.8) 10^3/ul RBC 2.72 L (4.0-5.4) 10^6/ul Hgb 8.8 L (12.0-16.0) g/dl Hct 25 L (35-47) % MCV 93 (80-97) fL MCH 32 H (27-31) pg MCHC 35 (31-36) g/dl RDW 13 (10.5-15) % Plt Count 212 (150-450) 10^3/ul MPV 8 (7.4-10.4) um3 Neut % (Auto) 72.1 (38-83) % Lymph % (Auto) 14.3 L (25-47) % Rincon % (Auto) 9.4 H (1-9) % Eos % (Auto) 3.6 (0-6) % Baso % (Auto) 0.6 (0-2) % Absolute Neuts (auto) 6.2 (1.5-7.7) 10^3/ul Absolute Lymphs (auto) 1.2 (1.0-4.8) 10^3/ul Absolute Monos (auto) 0.8 (0-0.8) 10^3/ul Absolute Eos (auto) 0.3 (0-0.6) 10^3/ul Absolute Basos (auto) 0 (0-0.2) 10^3/ul Absolute Nucleated RBC 0.01 10^3/ul Nucleated RBC % 0.1 INR (Anticoag Therapy) (0.89-1.11) APTT (26.0-36.3) seconds Sodium (133-145) mmol/L Potassium (3.5-5.0) mmol/L Chloride (101-111) mmol/L Carbon Dioxide (22-32) mmol/L Anion Gap (2-11) mmol/L BUN (6-24) mg/dL Creatinine (0.51-0.95) mg/dL Est GFR ( Amer) (>60) Est GFR (Non-Af Amer) (>60) BUN/Creatinine Ratio (8-20) Glucose (70-100) mg/dL Lactic Acid 1.1 (0.5-2.0) mmol/L Calcium (8.6-10.3) mg/dL Total Bilirubin (0.2-1.0) mg/dL AST (13-39) U/L ALT (7-52) U/L Alkaline Phosphatase (34-104) U/L C-Reactive Protein (< 5.00) mg/L B-Natriuretic Peptide ( - 100) pg/mL Total Protein (6.4-8.9) g/dL Albumin (3.2-5.2) g/dL Globulin (2-4) g/dL Albumin/Globulin Ratio (1-3) Result Diagrams: 08/04/17 19:00 08/04/17 19:00 Lab Statement: Any lab studies that have been ordered have been reviewed, and results considered in the medical decision making process. - Radiology Knee X-Ray Radiology Interpretation Completed By: Radiologist - No significant abnormality following recent total joint replacement. ED physician has reviewed this radiology report and agrees. - CT CTA Chest/Thorax CT Interpretation Completed By: Radiologist - 1. Mildly limited CT pulmonary angiogram without compelling evidence for pulmonary embolism. 2. Minimal RIGHT basilar subsegmental atelectasis. ED physician has reviewed this radiology report and agrees. - Additional Comments Diagnostic Additional Comments: Venous Doppler Study reveals, per radiologist, No evidence for RIGHT lower extremity deep venous thrombosis. ED physician has reviewed this radiology report and agrees. Lower Extremity Course/Dx - Course Course Of Treatment: DISCUSSED RESULTS WITH PATIENT/. F/U ORTHO; RETURN IF WORSE. - Diagnoses Provider Diagnoses: Pain and swelling of right knee Discharge - Discharge Plan Condition: Stable Disposition: HOME Patient Education Materials: Knee Pain (ED), Swollen Knee Joint (ED) Referrals: [facility] [Outside] Alejandra Kaur MD [Medical Doctor] - Isidra Salinas MD [Primary Care Provider] - Additional Instructions: FOLLOW UP WITH YOUR DOCTOR. RETURN TO THE EMERGENCY DEPARTMENT FOR ANY WORSENING OF YOUR CONDITION OR QUESTIONS OR CONCERNS. The documentation as recorded by the Kirt garzon Alfonso accurately reflects the service I personally performed and the decisions made by me, Dayton Real MD.
[2017-08-04 21:45] VITALS: BP 153/53
== END 2017-08-04 21:44 | disposition home or self-care (01) ==
LOC: ED 17:47
DX: T84.84XA Pain due to internal orthopedic prosthetic devices, implants and grafts, initial encounter (principal); M25.461 Effusion, right knee; I10 Essential (primary) hypertension; R73.03 Prediabetes; G47.30 Sleep apnea, unspecified; E03.9 Hypothyroidism, unspecified; M19.049 Primary osteoarthritis, unspecified hand; F32.9 Major depressive disorder, single episode, unspecified; M46.92 Unspecified inflammatory spondylopathy, cervical region; Z88.1 Allergy status to other antibiotic agents; Z88.5 Allergy status to narcotic agent; Z88.2 Allergy status to sulfonamides
CPT/HCPCS: 36415; 71275; 80053; 83605; 83880; 85025; 85610; 85730; 86140; 96360; 96374; 99283; A9270-GY; Q9967

== ENCOUNTER 2017-08-06 07:43 | Emergency (ER) | payer MEDICARE ==
[2017-08-06] MEDS ORDERED: Acetaminophen TAB* 325 MG PO ONE (08:33)
[2017-08-06 08:34] VITALS: BP 149/50
[2017-08-06] MEDS ORDERED: Ibuprofen TAB* 600 MG PO ONE (08:36)
[2017-08-06] MEDS ORDERED: Ibuprofen TAB* 600 MG ONE (08:37)
--- NOTE | 2017-08-19 09:37 | UC ---
Raghavendra Vasquez Angela, scribed for Shannan Vaughan MD on 08/06/17 at 0801 . Allergic Reaction HPI - HPI Summary HPI Summary: This pt is a 77 y/o female accompanied by her presenting to [facility] c/o generalized itching x2 days and facial swelling since this morning. She additionally c/o swollen throat. Pt had a right knee replacement surgery 1 week ago, 07/30/17, and was prescribed Percocet. After a couple of doses, she began to experience generalized itching. Pt was in the ED 2 days ago for a sharp pain and swelling on her right knee and was concerned for a blood clot. 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 Per , the Benadryl was but was in a blister pack. She had 1/2 a banana this morning after taking these pills. Pt has not taken any antibiotics today. Pt states she has not had a temperature over 100F until this morning, last night it was around 99F. Pt denies difficulty breathing, diarrhea, sick contacts. She is not on any anticoagulants. PMHx: borderline diabetes. - History of Current Complaint Chief Complaint: UCAllergicReaction Stated Complaint: allergic reaction Time Seen by Provider: 08/06/17 07:45 Hx Obtained From: Patient, Family/Biopharmaceutical Rep - Onset/Duration: Lasting Days Location: Diffuse Character: Pruritus Associated Signs And Symptoms: Positive: Rash - on her back, Other: - swollen throat, facial edema. Negative: Difficulty Breathing, Lightheadedness, Nausea, Throat Tightening, Vomiting - Allergies/Home Medications Allergies/Adverse Reactions: Allergies Allergy/AdvReac Type Severity Reaction Status Date / Time Codeine Allergy Severe FACIAL Verified 08/06/17 09:07 EDEMA Sulfa Antibiotics Allergy Intermediate Rash Verified 08/06/17 09:07 Levofloxacin [From Levaquin] Allergy DOES NOT Verified 08/06/17 09:07 WANT TO TAKE THIS MED Home Medications: Home Medications Acetaminophen [Acetaminophen Extra Stren] 500 mg PO 08/06/17 [History Confirmed 08/06/17] Diphenhydramine HCl [Benadryl Allergy 25 MG CAP] 50 mg PO 08/06/17 [History Confirmed 08/06/17] PMH/Surg Hx/FS Hx/Imm Hx Endocrine History: Diabetes - borderline, Thyroid Disease Cardiovascular History: Hypertension - Surgical History Surgical History: Yes Surgery Procedure, Year, and Place: CYST FROM LEFT BREAST, ,JAQUELINE. OVARY REMOVED, , JAQUELINE. RIGHT EYE [id number] - Family History Known Family History: Positive: Cardiac Disease, Diabetes, Other - Blood clot - Social History Alcohol Use: Weekly Alcohol Amount: NONE IN THE LAST 2 WEEKS Substance Use Type: None Smoking Status (MU): Never Smoked Tobacco Have You Smoked in the Last Year: No - Immunization History Most Recent Influenza Vaccination: 09/2016 Most Recent Pneumonia Vaccination: up to date Review of Systems Constitutional: Negative Skin: Rash, Other - facial swelling Eyes: Other - swelling around the eyes ENT: Other - throat swelling Respiratory: Negative Cardiovascular: Negative Gastrointestinal: Negative Genitourinary: Negative Motor: Negative Neurovascular: Negative Musculoskeletal: Other: - RLE: swollen and erythematous Neurological: Negative All Other Systems Reviewed And Are Negative: Yes Physical Exam Triage Information Reviewed: Yes Appearance: Well-Nourished Vital Signs: Initial Vital Signs Temp 100.8 F 08/06/17 07:48 Pulse 66 08/06/17 07:48 Resp 16 08/06/17 07:48 BP 153/51 08/06/17 07:48 Pulse Ox 97 08/06/17 07:48 Vital Signs Reviewed: Yes Eyes: Positive: Other: - edema around the eyes ENT: Positive: TMs normal Neck exam: Normal - w/o ana laura jvd Respiratory: Positive: Chest non-tender, No respiratory distress, No accessory muscle use, Wheezing - on the right Cardiovascular Exam: Normal Cardiovascular: Positive: RRR, No Murmur - no murmur noted at exam, but exam setting (loud) suboptimal for detailed., Pulses Normal, Brisk Capillary Refill Abdominal Exam: Normal Abdomen Description: Positive: Nontender, No Organomegaly, Soft Bowel Sounds: Positive: Present Musculoskeletal: Positive: Strength Intact, Edema @ - RLE: s/p total knee replacement, 26.5 cm (length) x 15 cm (width) erythematous swelling around the right knee. mild drainage. Neurological Exam: Normal - nonfocal, grossly intact Psychological Exam: Normal - conversing easily and appropriately Skin: Positive: Other - scattered hives on the back Allergic Reaction Course/Dx - Course Course Of Treatment: Patient offered and encouraged EMS. Patient declines. Spoke to Dr. Brownlee from the ED at 0829. 0830: at discharge, pt was noted to have a temperature of 101.4F. She took 2 extra strength Tylenol at 0700 today, at such ibuprofen 600 mg PO was administered. Pt routinely takes this for the pain but has not taken it in the last day. - Differential Dx/Diagnosis Provider Diagnoses: R knee redness, swelling s/p replacement surgery. hives Discharge - Discharge Plan Condition: Guarded Disposition: TRANS HIGHER LVL OF CARE FAC Patient Education Materials: Leg Edema (ED) Referrals: Isidra Salinas MD [Primary Care Provider] - Additional Instructions: PLEASE GO DIRECTLY TO THE EMERGENCY DEPARTMENT FOR FURTHER EVALUATION. IF YOU HAVE WORSENING SYMPTOMS OR ENCOUNTER NEW PROBLEMS, PLEASE CALL [phone]. The documentation as recorded by the Raghavendra garzon Angela accurately reflects the service I personally performed and the decisions made by me, Shannan Vaughan MD.
== END 2017-08-06 08:40 | disposition short-term general hospital (02) ==
LOC: UCEAST 07:43
DX: M25.461 Effusion, right knee (principal); R21 Rash and other nonspecific skin eruption; Z96.651 Presence of right artificial knee joint; L50.0 Allergic urticaria; T40.2X5A Adverse effect of other opioids, initial encounter; Y92.9 Unspecified place or not applicable; R73.03 Prediabetes; E07.9 Disorder of thyroid, unspecified; I10 Essential (primary) hypertension; Z98.41 Cataract extraction status, right eye; Z88.5 Allergy status to narcotic agent; Z88.2 Allergy status to sulfonamides; Z88.8 Allergy status to other drugs, medicaments and biological substances
CPT/HCPCS: 99202; A9270-GY; G0463

== ENCOUNTER → 2017-08-06 09:01 | Emergency (ER) | payer MEDICARE ==
[~2017-08-06 09:01] MED LIST changes: -Buffered Lidocaine 0.9% SYRIN* 5 ML/SYR SYRINGE INTRADERM ONE; -Famotidine IV* 10 MG/ML 2 ML (20 mg) IV ONE; -Gabapentin CAP(*) 300 MG PO ONE; +Ketorolac INJ* 30 MG/ML 1 ML VIAL IV PUSH ONE; +diPHENhydraMINE IV* 50 MG/ML 1 ml VIAL (BENADRYL) IV ONE
[2017-08-06 10:29] LABS: Hematocrit 25 % (35-47); Hemoglobin 8.5 g/dl (12.0-16.0); Mean Corpuscular HGB Conc 34 g/dl (31-36); Mean Corpuscular Hemoglobin 31 pg (27-31); Mean Corpuscular Volume 93 fL (80-97); Mean Platelet Volume 7 um3 (7.4-10.4); Red Blood Count 2.72 10^6/ul (4.0-5.4); Red Cell Distribution Width 13 % (10.5-15); White Blood Count 8.7 10^3/ul (3.5-10.8)
[2017-08-06 10:44] LABS: Albumin 3.2 g/dL (3.2-5.2); Calcium 8.9 mg/dL (8.6-10.3); EGFR African American 53.6 (>60); EGFR Non-African American 41.7 (>60); Globulin 3.1 g/dL (2-4); Potassium 4.7 mmol/L (3.5-5.0); Total Bilirubin 0.7 mg/dL (0.2-1.0); Total Protein 6.3 g/dL (6.4-8.9)
[2017-08-06 11:46] VITALS: BP 134/36
--- NOTE | 2017-08-06 18:23 | ED ---
Lower Extremity - HPI Summary HPI Summary: 77 y/o female s/p recent right knee replacement presents with increase facial swelling around eyes, mild tighteness in throat x 24 hours, worsening. patient states had facial swelling and throat swelling in past when taking morphine, has been on percocet for pain control recent. patient was seen at urgent care , sent over for possible knee infection. patient had physical therapy this morning, denies fever, chilsl, although does feel itchy throughout body. - History of Current Complaint Chief Complaint: EDAllergicReaction Stated Complaint: POSS ALLERGIC REACTION Time Seen by Provider: 08/06/17 09:02 Hx Obtained From: Patient, Family/Tester Wafer Substrate - Onset of Pain: Hours Onset/Duration: Hours Severity Initially: Moderate Severity Currently: Moderate Pain Intensity: 2 Pain Scale Used: 0-10 Numeric - Allergies/Home Medications Allergies/Adverse Reactions: Allergies Allergy/AdvReac Type Severity Reaction Status Date / Time Codeine Allergy Severe FACIAL Verified 08/06/17 09:07 EDEMA Sulfa Antibiotics Allergy Intermediate Rash Verified 08/06/17 09:07 Levofloxacin [From Levaquin] Allergy DOES NOT Verified 08/06/17 09:07 WANT TO TAKE THIS MED PMH/Surg Hx/FS Hx/Imm Hx Previously Healthy: No Endocrine/Hematology History: Reports: Hx Diabetes - BORDERLINE, Hx Thyroid Disease - HYPOTHYROID Cardiovascular History: Reports: Hx Hypertension, Other Cardiovascular Problems/ Disorders - MILD HEART DAMAGE SHOWED 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 Respiratory History: Reports: Hx Sleep Apnea Denies: Other Respiratory Problems/Disorders GI History: Denies: Other GI Disorders History: Reports: Hx Kidney Infection - A CHILD-AGE 9 Musculoskeletal History: Reports: Hx Arthritis - FINGERS,RIGHT KNEE, NECK, Hx Bursitis - RECENTLY- STATES IS STANDS FOR 2 HOURS- HAS TINGLING IN THE RIGHT LEG , Other Musculoskeletal History - GOUT LEFT GREAT Sensory History: Reports: Hx Cataracts - VINCE, Hx Contacts or Glasses - GLASSES, Hx Hearing Aid - BILATERAL Opthamlomology History: Reports: Hx Cataracts - VINCE, Hx Contacts or Glasses - GLASSES Neurological History: Denies: Other Neuro Impairments/Disorders Psychiatric History: Reports: Hx Depression - ON MEDICATION FOR-ON METFORMIN AND ZOLOFT TO CONTROL EATING HABITS - Cancer History Hx Chemotherapy: No Hx Radiation Therapy: No - Surgical History Surgery Procedure, Year, and Place: CYST FROM LEFT BREAST, ,JAQUELINE. OVARY REMOVED, , JAQUELINE. RIGHT EYE [id number] Hx Anesthesia Reactions: No Infectious Disease History: Yes Infectious Disease History: Denies: Traveled Outside the [place] in Last 30 Days - Family History Known Family History: Positive: Cardiac Disease, Diabetes, Other - Blood clot - Social History Alcohol Use: Weekly Alcohol Amount: NONE IN THE LAST 2 WEEKS Substance Use Type: Reports: None Smoking Status (MU): Never Smoked Tobacco Have You Smoked in the Last Year: No Review of Systems Positive: Chills Positive: Edema Positive: Rash, Other - itchy All Other Systems Reviewed And Are Negative: Yes Physical Exam Triage Information Reviewed: Yes Vital Signs On Initial Exam: Initial Vitals Temp Pulse Resp BP Pulse Ox 100 F 50 18 145/56 96 08/06/17 09:03 08/06/17 09:03 08/06/17 09:03 08/06/17 09:03 08/06/17 09:03 Vital Signs Reviewed: Yes Appearance: Positive: Well-Appearing, No Pain Distress, Well-Nourished Skin: Positive: Warm, Other - perioribtal edema b/l, uniform. no throat swelling, redness appreciated. mild swelling voer cheeks, none seen over neck. mild faint lacy rash noted over chest, upper extremities. Eyes: Positive: EOMI, HAN, Conjunctiva Clear ENT: Positive: Pharynx normal, TMs normal Neck: Positive: Supple, Nontender, No Lymphadenopathy Respiratory/Lung Sounds: Positive: Clear to Auscultation, Breath Sounds Present Cardiovascular: Positive: Normal, RRR, Pulses are Symmetrical in both Upper and Lower Extremities Musculoskeletal: Positive: Other - well healing knee incision with sutures intact, minimal swelling, mild erythema over knee, minimal warmth, minimal effusion consistent with recent surgery - [place] Coma Scale Coma Scale Total: 15 Diagnostics - Vital Signs Vital Signs Temp Pulse Resp BP Pulse Ox 08/06/17 11:45 99.0 F 73 20 134/36 08/06/17 11:38 17 134/36 08/06/17 11:00 55 19 93 08/06/17 10:00 144/55 08/06/17 09:30 56 20 138/47 94 08/06/17 09:23 51 20 95 08/06/17 09:20 146/43 08/06/17 09:03 100 F 50 18 145/56 96 - Laboratory Lab Results: Lab Results 08/06/17 08/06/17 Range/Units 10:17 10:17 WBC 8.7 (3.5-10.8) 10^3/ul RBC 2.72 L (4.0-5.4) 10^6/ul Hgb 8.5 L (12.0-16.0) g/dl Hct 25 L (35-47) % MCV 93 (80-97) fL MCH 31 (27-31) pg MCHC 34 (31-36) g/dl RDW 13 (10.5-15) % Plt Count 262 (150-450) 10^3/ul MPV 7 L (7.4-10.4) um3 Neut % (Auto) 76.7 (38-83) % Lymph % (Auto) 9.1 L (25-47) % Haines % (Auto) 9.0 (1-9) % Eos % (Auto) 5.0 (0-6) % Baso % (Auto) 0.2 (0-2) % Absolute Neuts (auto) 6.6 (1.5-7.7) 10^3/ul Absolute Lymphs (auto) 0.8 L (1.0-4.8) 10^3/ul Absolute Monos (auto) 0.8 (0-0.8) 10^3/ul Absolute Eos (auto) 0.4 (0-0.6) 10^3/ul Absolute Basos (auto) 0 (0-0.2) 10^3/ul Absolute Nucleated RBC 0 10^3/ul Nucleated RBC % 0 Sodium 136 (133-145) mmol/L Potassium 4.7 (3.5-5.0) mmol/L Chloride 104 (101-111) mmol/L Carbon Dioxide 25 (22-32) mmol/L Anion Gap 7 (2-11) mmol/L BUN 20 (6-24) mg/dL Creatinine 1.25 H (0.51-0.95) mg/dL Est GFR ( Amer) 53.6 (>60) Est GFR (Non-Af Amer) 41.7 (>60) BUN/Creatinine Ratio 16.0 (8-20) Glucose 103 H (70-100) mg/dL Calcium 8.9 (8.6-10.3) mg/dL Total Bilirubin 0.70 (0.2-1.0) mg/dL AST 21 (13-39) U/L ALT 14 (7-52) U/L Alkaline Phosphatase 41 (34-104) U/L Total Protein 6.3 L (6.4-8.9) g/dL Albumin 3.2 (3.2-5.2) g/dL Globulin 3.1 (2-4) g/dL Albumin/Globulin Ratio 1.0 (1-3) Result Diagrams: 08/06/17 10:17 08/06/17 10:17 Lab Statement: Any lab studies that have been ordered have been reviewed, and results considered in the medical decision making process. Lower Extremity Course/Dx - Course Course Of Treatment: benadryl given, avoid prednisone due to recent surgery and pre-DM, patients swelling decreased significantly while in house, eating, drinking well without complaint, knee pain controlled with NSAIDs. d/c to home with follow up / pain management per dr pettit. - Diagnoses Differential Diagnosis/HQI/PQRI: Positive: Cellulitis Provider Diagnoses: Angioedema Discharge - Discharge Plan Condition: Good Disposition: HOME Prescriptions: Acetaminophen TAB* [Tylenol TAB*] 650 mg PO Q4H PRN #90 tab MDD 4000 mg PRN Reason: Pain Naproxen [Naproxen 500 mg] 500 mg PO Q12HR PRN #90 tab PRN Reason: Pain diPHENhydraMINE PO* [Benadryl PO 25 MG TAB*] 25 mg PO Q6H PRN #30 tab PRN Reason: Itching Patient Education Materials: General Allergic Reaction (ED) Referrals: Alejandra Pettit MD [Medical Doctor] - Isidra Salinas MD [Primary Care Provider] - Additional Instructions: - Continue benadryl 25mg two to three times a day for itching, swelling. - Return to ER with shortness of breath, throat swelling, decreased eating/ drinking - FOlow up with Dr. Pettit - Increase fluid intake due to mildly decreased renal function - Pain Regimen- -- Naproxen 500mg BID -- Tylenol 650 mg every 4-6 hours for breakthrough pain - Call Dr. Hargrove office for medication if not adequate pain control - Ice, elevate knee as much as possible before and after PT.
== END | disposition home or self-care (01) ==
LOC: ED 09:01
DX: T78.3XXA Angioneurotic edema, initial encounter (principal); Z96.651 Presence of right artificial knee joint; Z88.5 Allergy status to narcotic agent; Z88.2 Allergy status to sulfonamides; R73.03 Prediabetes
CPT/HCPCS: 36415; 80053; 85025; 96374; 96375; 99282; J1200; J1885

== ENCOUNTER 2017-08-25 15:57 | Emergency (ER) | payer MEDICARE ==
[2017-08-25 18:33] LABS: Hematocrit 30 % (35-47); Hemoglobin 9.9 g/dl (12.0-16.0); Mean Corpuscular HGB Conc 33 g/dl (31-36); Mean Corpuscular Hemoglobin 30 pg (27-31); Mean Corpuscular Volume 91 fL (80-97); Mean Platelet Volume 7 um3 (7.4-10.4); Red Blood Count 3.31 10^6/ul (4.0-5.4); Red Cell Distribution Width 14 % (10.5-15); White Blood Count 10.2 10^3/ul (3.5-10.8)
[2017-08-25 18:42] LABS: Calcium 9.7 mg/dL (8.6-10.3); EGFR African American 52.1 (>60); EGFR Non-African American 40.5 (>60); Globulin 3.8 g/dL (2-4); Total Bilirubin 0.3 mg/dL (0.2-1.0); Total Protein 7.8 g/dL (6.4-8.9)
--- NOTE | 2017-08-25 19:53 | RAD ---
HISTORY: Fall, right knee pain COMPARISONS: August 14, 2017 VIEWS: 2, Frontal and lateral views of the right knee FINDINGS: BONE DENSITY: Normal. BONES: The patient is status post right knee arthroplasty. There is no hardware failure or osteolysis. JOINTS: The patient is status post right knee arthroplasty ALIGNMENT: There is no dislocation. SOFT TISSUES: Unremarkable. OTHER FINDINGS: None. IMPRESSION: STATUS POST RIGHT KNEE ARTHROPLASTY. NO ACUTE OSSEOUS INJURY. IF SYMPTOMS PERSIST, RECOMMEND REPEAT IMAGING.
[2017-08-25] MEDS ORDERED: Ibuprofen TAB* 600 MG PO ONE (20:07)
--- NOTE | 2017-08-25 21:00 | RAD ---
HISTORY: Right femur pain, fall COMPARISONS: None VIEWS: 6, Frontal and lateral views of the right femur FINDINGS: BONE DENSITY: Normal. BONES: There is no displaced fracture. JOINTS: The patient is status post right knee arthroplasty. There is mild osteoarthritis of the right hip and SI joint ALIGNMENT: There is no dislocation. SOFT TISSUES: Unremarkable. OTHER FINDINGS: None. IMPRESSION: STATUS POST RIGHT KNEE ARTHROPLASTY. MILD OSTEOARTHRITIS. NO ACUTE OSSEOUS INJURY. IF SYMPTOMS PERSIST, RECOMMEND REPEAT IMAGING
[2017-08-25 21:54] VITALS: BP 156/63
--- NOTE | 2017-08-25 22:50 | ED ---
Nirmala Vasquez Rebecca, scribed for Alex Artis on 08/25/17 at 1917 . Lower Extremity - HPI Summary HPI Summary: Pt is a 77 y/o F BIBA who presents to ED c/o RLE pain s/p multiple falls. Pt is about 3.5 weeks post-op from a R knee replacement done by Dr. Kaur. Pt was in her garage and reached for something, causing multiple items to fall off the shelf after which she jumped back, twisted her R knee and fell down. States that she "may have heard a pop" and she was able to get herself up. She then walked about 8 steps inside her house then fell again, stating that "the knee wiggled and gave on me and I fell down again." Pain is above the R knee, in the mid-thigh and is currently severe, ranked 8/10. Sx aggravated by movement, alleviated by nothing. Pt is unable to ambulate. - History of Current Complaint Chief Complaint: EDExtremityLower Stated Complaint: FALL RIGHT LEG PAIN Time Seen by Provider: 08/25/17 19:12 Hx Obtained From: Patient Mechanism Of Injury: Fall From A Standing Position Onset of Pain: Prior to Arrival Onset/Duration: Still Present Severity Currently: Severe Pain Intensity: 8 Pain Scale Used: 0-10 Numeric Location: Is Discrete @ - Above the R knee, mid-thigh Associated Signs And Symptoms: Positive: Negative Aggravating Factor(s): Movement Alleviating Factor(s): Nothing Able to Bear Weight: No - Allergies/Home Medications Allergies/Adverse Reactions: Allergies Allergy/AdvReac Type Severity Reaction Status Date / Time Codeine Allergy Severe FACIAL Verified 08/25/17 16:48 EDEMA Sulfa Antibiotics Allergy Intermediate Rash Verified 08/25/17 16:48 Levofloxacin [From Levaquin] Allergy DOES NOT Verified 08/25/17 16:48 WANT TO TAKE THIS MED PMH/Surg Hx/FS Hx/Imm Hx Endocrine/Hematology History: Reports: Hx Diabetes - BORDERLINE, Hx Thyroid Disease - HYPOTHYROID Cardiovascular History: Reports: Hx Hypertension, Other Cardiovascular Problems/ Disorders - MILD HEART DAMAGE SHOWED 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 Respiratory History: Reports: Hx Sleep Apnea Denies: Other Respiratory Problems/Disorders GI History: Denies: Other GI Disorders History: Reports: Hx Kidney Infection - A CHILD-AGE 9 Musculoskeletal History: Reports: Hx Arthritis - FINGERS,RIGHT KNEE, NECK, Hx Bursitis - RECENTLY- STATES IS STANDS FOR 2 HOURS- HAS TINGLING IN THE RIGHT LEG , Other Musculoskeletal History - GOUT LEFT GREAT Sensory History: Reports: Hx Cataracts - VINCE, Hx Contacts or Glasses - GLASSES, Hx Hearing Aid - BILATERAL Opthamlomology History: Reports: Hx Cataracts - VINCE, Hx Contacts or Glasses - GLASSES Neurological History: Denies: Other Neuro Impairments/Disorders Psychiatric History: Reports: Hx Depression - ON MEDICATION FOR-ON METFORMIN AND ZOLOFT TO CONTROL EATING HABITS - Cancer History Hx Chemotherapy: No Hx Radiation Therapy: No - Surgical History Surgery Procedure, Year, and Place: CYST FROM LEFT BREAST, ,JAQUELINE. OVARY REMOVED, , JAQUELINE. RIGHT EYE [id number] Hx Anesthesia Reactions: No Infectious Disease History: No Infectious Disease History: Denies: Traveled Outside the [place] in Last 30 Days - Family History Known Family History: Positive: Cardiac Disease, Diabetes, Other - Blood clot - Social History Alcohol Use: Weekly Alcohol Amount: NONE IN THE LAST 2 WEEKS Substance Use Type: Reports: None Smoking Status (MU): Never Smoked Tobacco Have You Smoked in the Last Year: No Review of Systems Negative: Fever Positive: Arthralgia - Pian above the R knee All Other Systems Reviewed And Are Negative: Yes Physical Exam - Summary Physical Exam Summary: Appearance: Well appearing, no pain distress Skin: warm, dry, reflects adequate perfusion Head/face: normal Eyes: EOMI, HAN ENT: normal Neck: supple, nontender Respiratory: CTA, breath sounds present Cardiovascular: RRR, pulses symmetrical Abdomen: nontender, soft Bowel: present Musculoskeletal: tender over the R knee and R thigh with restriction of ROM, no neurovascular deficits Neuro: normal, sensory motor intact, A&Ox3 Triage Information Reviewed: Yes Vital Signs On Initial Exam: Initial Vitals BP 146/54 08/25/17 16:43 Vital Signs Reviewed: Yes Diagnostics - Vital Signs Vital Signs Temp Pulse Resp BP Pulse Ox 08/25/17 16:45 86 93 08/25/17 16:44 99.3 F 84 16 146/54 97 08/25/17 16:43 146/54 - Laboratory Lab Results: Lab Results 08/25/17 08/25/17 08/25/17 Range/Units 18:17 18:17 18:17 WBC 10.2 (3.5-10.8) 10^3/ul RBC 3.31 L (4.0-5.4) 10^6/ul Hgb 9.9 L (12.0-16.0) g/dl Hct 30 L (35-47) % MCV 91 (80-97) fL MCH 30 (27-31) pg MCHC 33 (31-36) g/dl RDW 14 (10.5-15) % Plt Count 316 (150-450) 10^3/ul MPV 7 L (7.4-10.4) um3 INR (Anticoag Therapy) 0.98 (0.89-1.11) APTT 28.2 (26.0-36.3) seconds Sodium 137 (133-145) mmol/L Potassium 4.0 (3.5-5.0) mmol/L Chloride 104 (101-111) mmol/L Carbon Dioxide 26 (22-32) mmol/L Anion Gap 7 (2-11) mmol/L BUN 23 (6-24) mg/dL Creatinine 1.28 H (0.51-0.95) mg/dL Est GFR ( Amer) 52.1 (>60) Est GFR (Non-Af Amer) 40.5 (>60) BUN/Creatinine Ratio 18.0 (8-20) Glucose 133 H (70-100) mg/dL Calcium 9.7 (8.6-10.3) mg/dL Total Bilirubin 0.30 (0.2-1.0) mg/dL AST 17 (13-39) U/L ALT 12 (7-52) U/L Alkaline Phosphatase 60 (34-104) U/L Total Protein 7.8 (6.4-8.9) g/dL Albumin 4.0 (3.2-5.2) g/dL Globulin 3.8 (2-4) g/dL Albumin/Globulin Ratio 1.1 (1-3) Result Diagrams: 08/25/17 18:17 08/25/17 18:17 Lab Statement: Any lab studies that have been ordered have been reviewed, and results considered in the medical decision making process. - Radiology Knee XR Xray Interpretation: No Acute Changes - STATUS POST RIGHT KNEE ARTHROPLASTY. NO ACUTE OSSEOUS INJURY. IF SYMPTOMS PERSIST, RECOMMEND REPEAT IMAGING. ED phsyician reviewed radiology report and agrees. Radiology Interpretation Completed By: Radiologist Femur XR Xray Interpretation: No Acute Changes - STATUS POST RIGHT KNEE ARTHROPLASTY. MILD OSTEOARTHRITIS. NO ACUTE OSSEOUS INJURY. IF SYMPTOMS PERSIST, RECOMMEND REPEAT IMAGING ED physician reviewed radiology report and agrees. Radiology Interpretation Completed By: Radiologist Re-Evaluation - Re-Evaluation First Eval Re-Evaluation Time: 20:49 Comment: Pt continues to be in pain and cannot lift the RLE. Second Eval Re-Evaluation Time: 21:09 Comment: Discussed consult with Dr. Dobbins and D/C plan. Lower Extremity Course/Dx - Course Assessment/Plan: Pt is a 77 y/o F BIBA who presents to ED c/o RLE pain s/p multiple falls. Pt is about 3.5 weeks post-op from a R knee replacement done by Dr. Kaur. Pt was in her garage and reached for something, causing multiple items to fall off the shelf after which she jumped back, twisted her R knee and fell down. States that she "may have heard a pop" and she was able to get herself up. She then walked about 8 steps inside her house then fell again, stating that "the knee wiggled and gave on me and I fell down again." Pain is above the R knee, in the mid-thigh and is currently severe, ranked 8/10. Sx aggravated by movement. Pt is unable to ambulate. Ankle and Femur XR reveal no acute findings. In the ED course, pt received Motrin. Discussed care of pt with Dr. Dobbins who advised discharge and a follow up tomorrow. Pt will be D/C to home with Dx of R knee paind and r/o quadriceps tendon rupture with a follow up with Dr. Kaur. She understands and agrees. Allergies noted. Elevated BP noted. Medications reviewed. - Diagnoses Provider Diagnoses: Right knee pain, r/o quadriceps tendon rupture - Physician Notifications Discussed Care Of Patient With: Callum Dobbins Time Discussed With Above Provider: 21:05 Instructed by Provider To: Other - There is no emergent treatment necessary. Advised D/C to home with a knee immobilizer. Discharge - Discharge Plan Condition: Stable Disposition: HOME Patient Education Materials: Knee Pain (ED), Knee Immobilizer (ED) Referrals: Isidra Salinas MD [Primary Care Provider] - Alejandra Kaur MD [Medical Doctor] - 08/26/17 Additional Instructions: Take Motrin 600 mg three time a day. Follow up with Dr. Kaur's office tomorrow morning. The documentation as recorded by the Nirmala garzon Rebecca accurately reflects the service I personally performed and the decisions made by , Alex Artis.
== END 2017-08-25 21:55 | disposition home or self-care (01) ==
LOC: ED 15:57
DX: M25.561 Pain in right knee (principal); M79.604 Pain in right leg
CPT/HCPCS: 36415; 80053; 85027; 85610; 85730; 99283; A9270-GY

== ENCOUNTER 2017-09-03 12:57 | Inpatient (IN) | payer MEDICARE ==
--- NOTE | 2017-08-28 15:36 | HP ---
HISTORY AND PHYSICAL: DATE OF ADMISSION/SURGERY: 09/03/17 DATE OF OFFICE VISIT: 08/28/17 SURGEON: Dr. Alejandra Kaur * (DICTATED BY SALLY VARGAS) PROCEDURE: Right quad tendon repair. CHIEF COMPLAINT: Right knee pain with weakness. HISTORY OF PRESENT ILLNESS: Ms. Mccormack is a 77-year-old female who underwent a right total knee arthroplasty on 07/30/17. She unfortunately fell at her home on 08/25/17, and immediately had some increased right knee pain. X-rays and MRI were completed, which showed a quad tendon rupture on the right. She has elected to proceed with surgery. PAST MEDICAL HISTORY: Hypertension, high cholesterol, bradycardia, sleep apnea , hypothyroidism. PAST SURGICAL HISTORY: Right total knee arthroplasty, breast cyst removal, oophorectomy, cataract removal, tonsillectomy, and diverticula removal. CURRENT MEDICATIONS: 1. Nasonex. 2. Metformin. 3. Allopurinol. 4. Valsartan. 5. Sertraline. 6. Tolterodine tartrate. 7. Atorvastatin calcium. 8. Levothyroxine. 9. Fish oil. 10. Multivitamin. 11. Vitamin C. ALLERGIES: To SULFA, LEVAQUIN, and CODEINE. FAMILY HISTORY: Diabetes, heart disease, DVT, and stroke. SOCIAL HISTORY: She is 77-year-old female. She lives with her . She does not smoke or use drugs. REVIEW OF SYSTEMS: A complete 14-point review of systems is reviewed with the patient, was positive for hypothyroidism. She denies a history of DVT, PE, or anesthesia problems. PHYSICAL EXAMINATION GENERAL: Well developed, well nourished, in no acute distress. VITAL SIGNS: She stands 5 feet 3 inches tall, weighs 220 pounds. Her blood pressure is 124/64, heart rate is 72. HEENT: Normocephalic, atraumatic. NECK: Supple. No palpable lymph nodes. PULMONARY: Lungs are clear to auscultation bilaterally. CARDIO: Regular rate and rhythm. Strong S1, S2. ABDOMEN: Soft, nontender, nondistended. MUSCULOSKELETAL: Right lower extremity: There is a healing anterior right knee incision. There is no active drainage. She is unable to do straight leg raise on the right knee. There is tenderness and swelling over the superior patella and distal quadriceps insertion. There appears to be a defect there. She has 2+ dorsalis pedis pulses. Intact sensation and intact ankle dorsiflexion and plantar flexion. NEUROLOGICAL: Alert and oriented x3. Cranial nerves II through XII are intact. IMAGING STUDIES: An MRI was reviewed of the right knee and there appears to be a tear of the right quadriceps tendon. ASSESSMENT AND PLAN: Ms. Mccormack is a 77-year-old female who underwent a right total knee arthroplasty on 07/30/17. She subsequently fell a few days ago, had increased right knee pain. An MRI and physical exam conclude a right quadriceps tendon tear occurred during the fall. She has elected to proceed with surgery, scheduled for 09/03/17. Dr. Kaur is going to do a right quadriceps tendon repair. The risks and benefits were discussed at today's visit and all her questions were answered. She will follow up with Dr. Kaur 10 to 14 days after the surgery. SALLY VARGAS [id number]/[facility] #: [id number] EMILY
[~2017-09-03 12:57] MED LIST changes: +Buffered Lidocaine 0.9% SYRIN* 5 ML/SYR SYRINGE INTRADERM ONE; +Famotidine IV* 10 MG/ML 2 ML (20 mg) IV ONE; -Ketorolac INJ* 30 MG/ML 1 ML VIAL IV PUSH ONE; +Midazolam* 1 MG/ML 5 ML VIAL (5 MG) ONE; -diPHENhydraMINE IV* 50 MG/ML 1 ml VIAL (BENADRYL) IV ONE; +fentaNYL* 50 MCG/ML 2 ML VIAL (100 MCG VIAL) ONE
[2017-09-03] MEDS ORDERED: Propofol* 10 MG/ML 20 ML BTL IV PUSH ONE ×2 (13:03→16:37)
[2017-09-03] MEDS ORDERED: Dexamethasone IV* 4 MG/ML 1 ML (4 MG) ONE (13:03)
[2017-09-03] MEDS ORDERED: Lidocaine 2% PF * 5 ML VIAL ONE (13:03)
[2017-09-03] MEDS ORDERED: Ondansetron INJ* 2 MG/ML VIAL ONE (13:03)
[2017-09-03] MEDS ORDERED: Ketorolac INJ* 30 MG/ML 1 ML VIAL ONE (13:03)
[2017-09-03] MEDS ORDERED: DiMENhydriNATE IV* 50 MG/ML VIAL ONE (13:03)
[2017-09-03] MEDS ORDERED: Succinylcholine* 20 MG/ML 10 ML VIAL ONE (13:03)
[2017-09-03] MEDS ORDERED: Rocuronium* 10 MG/ML VIAL ONE (13:07)
[2017-09-03] MEDS ORDERED: ceFAZolin 2 GM PREMIX (*) 2 GM/50 ML BAG IVPB ONE (13:21)
[2017-09-03] MEDS ORDERED: Buffered Lidocaine 0.9% SYRIN* 5 ML/SYR SYRINGE ONE (13:21)
[2017-09-03] MEDS ORDERED: Famotidine IV* 10 MG/ML 2 ML (20 mg) ONE (13:21)
[2017-09-03] MEDS ORDERED: fentaNYL* 50 MCG/ML 2 ML VIAL (100 MCG VIAL) ONE ×2 (15:56→16:43)
[2017-09-03] MEDS ORDERED: diPHENhydraMINE IV* 50 MG/ML 1 ml VIAL (BENADRYL) IV PRN (16:02)
[2017-09-03] MEDS ORDERED: Ondansetron INJ* 2 MG/ML VIAL IV PRN (16:02)
[2017-09-03] MEDS ORDERED: Polyethylene Glycol 3350* 17 GM PACKET PO PRN (16:02)
[2017-09-03] MEDS ORDERED: oxyCODONE/Acetamin 5/325 MG* TAB PO PRN (16:02)
[2017-09-03] MEDS ORDERED: Acetaminophen TAB* 325 MG PO PRN (16:02)
[2017-09-03] MEDS ORDERED: Ondansetron TAB* 4 MG PO PRN (16:02)
[2017-09-03] MEDS ORDERED: Bisacodyl SUPP* 10 MG SUPP PR PRN (16:02)
[2017-09-03] MEDS ORDERED: oxyCODONE TAB* 5 MG TAB PO PRN ×2 (16:02→16:16)
[2017-09-03] MEDS ORDERED: Morphine INJ* 2 MG/ML 1 ML CARPUJECT IV PRN (16:02)
[2017-09-03] MEDS ORDERED: Magnesium Hydroxide LIQ* 30 ML UDC PO PRN (16:02)
[2017-09-03] MEDS ORDERED: DiMENhydriNATE IV* 50 MG/ML VIAL IV PUSH PRN (16:16)
[2017-09-03] MEDS ORDERED: Acetaminophen IV 1GM/100ML * 100 ML IVPB ONE (16:16)
[2017-09-03] MEDS ORDERED: Bupivacaine 0.5% SDV PF* 30 ML VIAL ONE (16:36)
[2017-09-03] MEDS ORDERED: Acetaminophen IV 1GM/100ML * 100 ML ONE (17:07)
[2017-09-03] MEDS ORDERED: HYDROmorphone INJ* 1 MG/ML CARPUJECT SYRINGE ONE (17:19)
[2017-09-03] MEDS ORDERED: Midazolam* 1 MG/ML 2 ML VIAL (2 MG) ONE (17:19)
[2017-09-03] MEDS: HYDROmorphone INJ* 1 MG/ML CARPUJECT SYRINGE IV PRN ×5 (17:23→17:57)
[2017-09-03] MEDS: Midazolam* 1 MG/ML 2 ML VIAL (2 MG) IV ONE ×2 (17:23→17:37)
[2017-09-03] MEDS ORDERED: traMADol TAB* 50 MG PO PRN (18:55)
[2017-09-03] MEDS ORDERED: Morphine INJ* 4 MG/ML 1 ML CARPUJECT ONE (18:58)
[2017-09-03] MEDS: traMADol TAB* 50 MG PO PRN (19:05)
[2017-09-03] MEDS: Acetaminophen TAB* 325 MG PO SCH (20:57)
[2017-09-03] MEDS: Docusate CAP* 100 MG PO SCH (20:57)
[2017-09-03] MEDS ORDERED: Warfarin TAB(*) 6 MG PO ONE (21:00)
[2017-09-03] MEDS ORDERED: metFORMIN* 500 MG TAB PO SCH (21:00)
[2017-09-03] MEDS ORDERED: Warfarin TAB(*) 4 MG PO ONE (23:00)
[2017-09-04] MEDS: ceFAZolin 1 GM VIAL(*) 1 GM in NS 0.9% 50 ML* 50 ML IVPB SCH ×2 (00:22→08:35)
[2017-09-04] MEDS: Acetaminophen TAB* 325 MG PO SCH ×3 (02:18→14:28)
[2017-09-04] MEDS: traMADol TAB* 50 MG PO PRN ×3 (02:19→14:29)
[2017-09-04] MEDS: Morphine INJ* 2 MG/ML 1 ML SYRINGE (TWO MG - NEW SYRINGE VERSION) IV PRN ×2 (04:00→11:22)
--- NOTE | 2017-09-04 04:23 | OP ---
DATE OF OPERATION: 09/03/17 - ROOM #348 DATE OF : 42 SURGEON: Alejandra Kaur MD STAFF MECHANICAL ENGINEER: SALLY Del Valle. Ms. Escobedo did help throughout the procedure with preparation of the leg, wound retraction, and wound closure. ANESTHESIOLOGIST: Dr. Hines. ANESTHESIA: General. PRE-OP DIAGNOSIS: Right quadriceps tendon rupture. POST-OP DIAGNOSIS: Right quadriceps tendon rupture. OPERATIVE PROCEDURE: Open right quadriceps tendon repair, primary. TOURNIQUET TIME: 25 minutes. COMPLICATIONS: None. ESTIMATED BLOOD LOSS: Less than 100 cc. SPECIMEN: None. BRIEF HISTORY/INDICATIONS: Ms. Mccormack is a 77-year-old female who had right total knee arthroplasty with Dr. Kaur on 07/30/17. She did well postoperatively without any complications. On 08/25/17, she fell and injured her quadriceps mechanism. She was seen in followup in the clinic. An MRI confirmed at least partial tear of the quadriceps tendon. The patient could not straight leg raise without significant pain and had a significant extensor lag. In order to attempt to obtain maximal function of the right total knee arthroplasty, we decided to move forward with an open right quadriceps tendon repair. I did contact the patient's primary care doctor, Dr. Salinas who felt we should proceed without any further clearance. Medical and cardiac clearance were just obtained before her total knee arthroplasty. Informed consent was obtained from the patient. She understood the risks of the procedure, included , but were not limited to bleeding, infection, damage to nearby structures, continued pain, need for further surgery, intraoperative fracture, nerve palsy, hardware failure or loosening, re-rupture of the tendon, failure of the repair, stroke, heart attack, blood clot, and . She wished to proceed. INTRAOPERATIVE FINDINGS: Intraoperatively, the patient was noted to have 75% to 80% tear of the tendon. This was along the musculotendinous junction superiorly. There was a band of 20% to 25% of the quadriceps extensor mechanism intact laterally. Significant amount of medial and lateral retinaculum was also torn. The patient 's femoral component and patellar component appeared to be intact without any loosening or periprosthetic fracture. DESCRIPTION OF PROCEDURE: Ms. Mccormack was identified in the preanesthesia unit. Her right lower extremity was marked as the correct operative site. Informed consent was signed and placed in the chart. Right lower extremity was marked as the correct operative side. The patient was taken to the operating room and placed under general anesthesia. A Georges catheter was placed. Tourniquet was placed on the right thigh. Right lower extremity was prepped and draped in the usual sterile fashion. Preop time-out was made to correctly identify the patient's side and site. Appropriate perioperative antibiotics were given within 1 hour of incision. Tourniquet was inflated and total tourniquet time for this procedure was 25 minutes. Midline incision was used and carried superiorly about 2 cm. Knife was carried down to the extensor mechanism. Immediately, a large amount of sero -sanguineous hematoma was encountered. This was removed with suction. There was careful dissection medially and laterally to the gutters. The quadriceps tear was easily visualized. This was along the musculotendinous junction just superior to the patella, 2 cm or so. This was transverse with a slight diagonal orientation towards the medial thigh. There was 75% to 80% of the tendon torn. Laterally, there was a band of intact extensor mechanism. Both medial and lateral retinaculum were disrupted. The knee was copiously irrigated with 9 L of sterile saline. #5 Ethibond's were used to run Krackow type stitches superiorly and inferiorly, both medially and laterally along the remaining muscle and tendinous soft tissue superiorly. Free ends of the suture were left distally. #5 Ethibond's were then used to perform Krackow type stitch inferiorly and back superiorly along the remaining tendons superior to the patella. Allis clamps were used to reapproximate the soft tissue. #5 Ethibond's were carefully tightly sewn together for a primary repair. Multiple other #5 Ethibond's were used to oversew this area and to reinforce the repair. #1 Vicryl's were used in interrupted fashion to repair the retinaculum both medially and laterally. The repair was deemed to be quite strong and the knee could be flexed to about 50 degrees without any separation at the repair site. Tourniquet was turned down at 25 minutes. The knee was copiously irrigated with sterile saline. The rest of the incision was closed in a layered fashion using 0 and 2-0 Vicryl's. Skin was closed using running 3-0 nylon suture. Sterile Xeroform, 4x4's, and Webril were used to cover the incision. Maxi wrap and cold packs were placed over this. Knee immobilizer was placed on the patient. Anesthesia was reversed without difficulty. She was taken to the PACU in stable condition. Intended weightbearing will be weightbearing as tolerated with the knee in extension at all times. Intended DVT prophylaxis will be Coumadin with Lovenox bridge. [id number]/[facility] #: [id number] EMILY
[2017-09-04] MEDS ORDERED: Levothyroxine TAB* 50 MCG TAB PO SCH (06:00)
--- NOTE | 2017-09-04 06:57 | CONSULT ---
Consult Consult: HOSPITALIST CONSULTATION DATE OF CONSULTATION: 09/04/17 REQUESTING PROVIDER: Dr. Kaur REASON FOR CONSULTATION:Medical co-managment HPI: Ms Mccormack is a 77 yo F with a h/o HTN, pre-diabetes and NANO who underwent R TKR on 07/30/17. On 08/25/17, the patient fell sustaining a R quadriceps tendon rupture. She went to the OR 09/03/[address] Kaur. The patient is seen POD#1 in consultation. She denies any significant pain in her knee. She states that overnight she did not sleep soundly. She had discomfort surrounding her knee and had spasms in her R foot. She denies any CP or SOB. No nausea. PMHx: HTN, NANO, pre-diabetes, HLD, hypothyroidism, depression PSHx: R TKR, breast cyst removal, oophrectomy, cataract extraction, tonsillectomy All: codeine, sulfa, tramadol, levaquin Meds: current medications reviewed. FamHx: + for DM, CAD, CVA and DVT SocHx: Non-smoker, she does not drink routinely, lives with her who is her SDM. ROS: complete 11 system review of systems is obtained, pertinent positives and negatives are as per HPI. PE: 138/51 63 16 97.9 97%2L gen: elderly female sitting up in bed, NAD HEENT: Pupils are round, EOMI, oropharynx is clear Card: nl S1S2 RRR, no murmurs, no LE edema Lungs: CTA B/L Abd: BS+ soft, NT/ND Ext: R knee in immobilizer and cryounit Neuro: CN II-XII grossly intact, sensation intact, strength of UE 5/5, LE strength not tested Psych: A+Ox3 Labs: Pending A/P: Ms Mccormack is a 77 yo F with a h/o HTN, NANO and pre-diabetes who was admitted following a quadriceps tendon repair. 1. Quadriceps tendon repair: managment per Dr. Kaur. 2. HTN: BP is under fair control. Will continue valsartan at home dose and monitor BP. 3. Pre-diabetes: Hold metformin for now. If sugars are stable and pt is eating well resume metformin at home dose. For now check glucose AC and cover with lispro sliding scale. 4. NANO: continue CPAP. Pt has her own machine. 5. Depression: continue zoloft. 6. Hypothyroidism: continue current dose of synthroid. 7. DVT-P: lovenox bridge to coumadin-managed by orthopedics 8. Full code
[2017-09-04] MEDS ORDERED: Dextrose 50% Syringe 50 ML* 25 GM/50 ML SYRINGE IV PUSH PRN (07:13)
[2017-09-04 07:41] LABS: Hematocrit 27 % (35-47); Hemoglobin 8.9 g/dl (12.0-16.0)
[2017-09-04 07:52] LABS: BUN/Creatinine Ratio 19.9 (8-20); Calcium 8.8 mg/dL (8.6-10.3); EGFR African American 41.5 (>60); EGFR Non-African American 32.3 (>60); Potassium 4.7 mmol/L (3.5-5.0)
[2017-09-04] MEDS: Insulin LISPRO* 1 UNITS UNIT SUBCUT SCH ×2 (07:54→11:25)
[2017-09-04] MEDS: Docusate CAP* 100 MG PO SCH (08:36)
[2017-09-04] MEDS ORDERED: Allopurinol TAB* 100 MG PO SCH (09:00)
[2017-09-04] MEDS ORDERED: Valsartan TAB* 160 MG PO SCH (09:00)
[2017-09-04] MEDS ORDERED: Sertraline* 50 MG TAB PO SCH (09:00)
[2017-09-04] MEDS ORDERED: Atorvastatin* 10 MG TAB PO SCH (09:00)
--- NOTE | 2017-09-04 11:14 | PN ---
Progress Note - Progress Note Date of Service: 09/04/17 SOAP: Subjective: []Patient seen OOB in chair, feels she did fairly well with therapy. Pain is controlled- prefers Tramadol. She would like to go home this afternoon after afternoon therapy session. Objective: [] Vital Signs Temp 97.6 F 09/04/17 07:31 Pulse 52 09/04/17 07:31 Resp 18 09/04/17 10:35 BP 136/53 09/04/17 07:31 Pulse Ox 98 09/04/17 07:31 Intake & Output 09/03/17 09/04/17 09/04/17 18:59 06:59 18:59 Intake Total 1500 1408 Output Total 150 700 Balance 1350 708 Weight 211 lb 9.6 oz Intake: IV Fluids 1500 1058 ABX - CEFAZOLIN 58 LR 1500 1000 Oral 350 Output: Georges 150 700 Other: Estimated Blood Loss MINIMAL Comment Laboratory Results - last 24 hr 09/03/17 09/03/17 09/04/17 13:49 13:56 07:05 Hgb 8.9 L Hct 27 L INR (Anticoag Therapy) Sodium Potassium Chloride Carbon Dioxide Anion Gap BUN Creatinine Est GFR ( Amer) Est GFR (Non-Af Amer) BUN/Creatinine Ratio Glucose POC Glucose (mg/dL) 108 H Calcium Blood Type O Positive Antibody Screen Negative 09/04/17 09/04/17 09/04/17 07:05 07:05 07:52 Hgb Hct INR (Anticoag Therapy) 0.99 Sodium 135 Potassium 4.7 Chloride 104 Carbon Dioxide 24 Anion Gap 7 BUN 31 H Creatinine 1.56 H Est GFR ( Amer) 41.5 Est GFR (Non-Af Amer) 32.3 BUN/Creatinine Ratio 19.9 Glucose 106 H POC Glucose (mg/dL) 125 H Calcium 8.8 Blood Type Antibody Screen Right knee OSCAR is dry and intact calf NT and soft +DF right ankle sensation and circulation intact distally Assessment: []s/p Right quadriceps tendon repair POD #1 Plan: []PT/OT WBAT in knee immobilizer Will discontinue Coumadin and use ASA 325 mg po BID instead Tramadol for pain- has Rx at home Discharge this afternoon with VNS and follow up with Dr. Kaur in 1 week in office
[2017-09-04] MEDS ORDERED: Enoxaparin(*) 30 MG/0.3 ML SYR SUBCUT SCH (12:00)
[2017-09-04 12:27] VITALS: BP 126/46
--- NOTE | 2017-09-05 01:38 | DS ---
DISCHARGE SUMMARY: DATE OF ADMISSION: 09/03/17 DATE OF DISCHARGE: 09/04/17 ATTENDING PHYSICIAN: Alejandra Kaur MD.* (DICTATED BY SALLY MARTINES) ADMISSION DIAGNOSIS: Right quadriceps tendon rupture. DISCHARGE DIAGNOSIS: Right quadriceps tendon rupture. SURGERY PERFORMED: Open right quadriceps tendon repair. HOSPITAL COURSE: The patient is a 77-year-old female, who underwent right total knee arthroplasty on 07/30/17. She did well postoperatively without any complications, but unfortunately she fell on 08/25/17 injuring her quadriceps mechanism. She was followed in the clinic and an MRI did confirm a partial tear of the quadriceps tendon. She had difficulty with extensor lag and weakness of her extensor mechanism. It was felt that she would benefit from quadriceps tendon repair to attempt to obtain her maximal function of the right knee. The patient elected to proceed and was taken to the operating room for the aforementioned procedure on 09/03/17. She tolerated the procedure well and left the operating room in stable condition. She was tolerating her postoperative pain with Tramadol. She was able to get out of bed with physical therapy in her knee immobilizer bearing weight as tolerated. She was found to be stable medically and orthopedically for discharge to home on the afternoon of 09/04/17. CONDITION ON DISCHARGE: Her vital signs show temperature of 97.6, pulse 52, respiratory rate 16, O2 saturation 98% on room air, blood pressure 136/53. PLAN: Discharge to home. Bearing weight as tolerated in the knee immobilizer. She will keep the knee in extension at all times. Her dressings may be removed and she may shower keeping the leg straight. A light dressing with Maxi wrap or gauze may be applied. She will use aspirin 325 mg p.o. b.i.d. for DVT prophylaxis. She has tramadol medication at home that was prescribed previously that she did not finish. She will continue with Colace while on narcotic pain medications. Dr. Kaur would like to see her in followup in 1 week in the office. If she were to have any problems with increased right knee pain, redness, drainage, calf pain or swelling, fever, or chills, the office is to be contacted prior to scheduled appointment roughly 1 week from now. SALLY MARTINES [id number]/[facility] #: [id number] EMILY
== END 2017-09-04 14:50 | disposition home health service (06) | DRG 502 ==
LOC: OR 12:57 → SSU 20:25
PROVIDERS: ADMIT Orthopaedic Surgery Adult Reconstructive Orthopaedic Surgery; ATTEND Orthopaedic Surgery Adult Reconstructive Orthopaedic Surgery
PROC: 0LQL0ZZ Repair Right Upper Leg Tendon, Open Approach (ICD-10-PCS; principal; 2017-09-03 15:15)
DX: S76.111A Strain of right quadriceps muscle, fascia and tendon, initial encounter (principal); E03.9 Hypothyroidism, unspecified; E78.00 Pure hypercholesterolemia, unspecified; Z96.651 Presence of right artificial knee joint; I10 Essential (primary) hypertension; W18.30XA Fall on same level, unspecified, initial encounter; R73.03 Prediabetes; G47.33 Obstructive sleep apnea (adult) (pediatric); F32.9 Major depressive disorder, single episode, unspecified; E78.5 Hyperlipidemia, unspecified; M19.90 Unspecified osteoarthritis, unspecified site; M10.9 Gout, unspecified; Z96.1 Presence of intraocular lens; J30.2 Other seasonal allergic rhinitis; Z88.5 Allergy status to narcotic agent; Y92.009 Unspecified place in unspecified non-institutional (private) residence as the place of occurrence of the external cause; Z90.721 Acquired absence of ovaries, unilateral; Z88.2 Allergy status to sulfonamides; Z88.1 Allergy status to other antibiotic agents; Z82.49 Family history of ischemic heart disease and other diseases of the circulatory system; Z82.3 Family history of stroke; Z83.2 Family history of diseases of the blood and blood-forming organs and certain disorders involving the immune mechanism; Z83.3 Family history of diabetes mellitus; Z98.42 Cataract extraction status, left eye; Z98.41 Cataract extraction status, right eye; Z97.4 Presence of external hearing-aid
CPT/HCPCS: 36415; 80048; 85014; 85018; 85610; 86850; 86900; 86901; A9270-GY; J0330; J0690; J1100; J1170; J1240; J1650; J1885; J2250; J2270; J2405; J2704; J3010

== ENCOUNTER 2018-01-12 07:12 | Inpatient (IN) | payer MEDICARE ==
--- OUTSIDE RECORDS SUMMARY | 2018-01-12 07:26 | XMS REPORT ---
:1940 External Reference #:[id number] Author Organization [facility] Address [address] [address] Phone [phone] Care Team Providers Name Role Phone Isidra Salinas MD Primary Care Physician Unavailable Payers Type Date Identification Numbers Payment Provider Subscriber Commercial Policy Number: [id number] [employer] Medicare Germania Mcgill Group Number: [id number] [address] PayID: [id number] [place] [address] Medigap Part B Effective: 2009 Policy Number: [id number] Medicare Germania Mcgill Expires: 2016 PayID: [id number] [address] [place] [address] Medigap Part B Effective: 2009 Policy Number: [employer] Insurance Alberto Mcgill [id number] Expires: 2017 PayID: [id number] [address] [place] [address] Commercial PayID: [id number] Medicare D - Drug Plan Germania Mcgill Problems Date Description Provider Status Onset: 02/06/2011 Benign essential hypertension Chacha Calderon M.D., FACP Active Onset: 02/06/2011 Hypothyroidism Chacha Calderon M.D., FACP Active Onset: 02/06/2011 Pure hypercholesterolemia Chacha Calderon M.D., FACP Active Onset: 02/06/2011 Sleep apnea Chacha Calderon M.D., FACP Active Onset: 02/06/2011 Anal and rectal polyp Chacha Calderon M.D., [facility] Active Onset: 02/06/2011 Acquired diverticulum of esophagus Chacha Calderon M.D., [facility] Active Onset: 11/30/2015 Impaired fasting glycaemia Isidra Salinas M.D. Active Onset: 11/30/2015 Osteoarthritis of multiple joints Isidra Salinas M.D. Active Note: minor at hip , hands Onset: 02/06/2016 Gout Isidra Salinas M.D. Active Onset: 02/27/2016 Retinopathy Isidra Salinas M.D. Active Onset: 08/23/2016 Plantar fasciitis Isidra Salinas M.D. Active Onset: 08/23/2016 Osteoarthritis Isidra Salinas M.D. Active Note: heel spur Onset: 02/18/2017 Localized, primary osteoarthritis Alejandra Kaur M.D. Active Onset: 08/28/2017 Injury of hip region Alejandra Kaur M.D. Active Onset: 09/13/2017 Arthroplasty of knee Alejandra Kaur M.D. Active Onset: 01/02/2018 Varicose veins of lower extremity Isidra Salinas M.D. 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 ETOH Use Occasionally consumes alcohol Smoking Patient has never smoked Recreational Drug Use Denies Drug Use Daily Caffeine Consumes on average 16oz of soda per day Exercise Type/Frequency Exercises sporadically Allergies, Adverse Reactions, Alerts Date Description Reaction Status Severity Comments 01/03/2010 Sulfa active 01/03/2010 Codeine active 05/25/2015 Levaquin inflammed tendons active Moderate would not like to take it 08/28/2017 Tramadol active Medications Medication Date Status Form Strength Qnty SIG Indications Ordering Provider Amlodipine 11/02/ Active Tablets 5mg 90tab 1by mouth Isidra Besylate 2017 s every day Caitlin Salinas Ferrous 09/10/ Active Tablets 324(38Fe) 60tab -take one Isidra Gluconate 2017 mg s tablet by Rita, mouth M.D. twice a day OTC Allopurinol 04/19/ Active Tablets 100mg 90tab take 1 Isidra 2015 s tablet by Rita, mouth M.D. every day Sertraline HCL 02/12/ Active Tablets 50mg 90tab Take 1 Isidra 2015 s Tablet Rita, Daily M.D. Tolterodine 09/30/ Active Tablets 2mg 180ta take 1 Isidra Tartrate 2011 bs tablet Rita, twice a M.D. day Atorvastatin 03/13/ Active Tablets 10mg 90tab take 1 Isidra Calcium 2011 s tablet Rita, daily M.D. Levothyroxine 07/24/ Active Tablets 50mcg 90tab take 1 Isidra Sodium 2010 s tablet Rita, daily M.D. Multi Complete / Active Capsules 1 po Unknown 0000 daily Vitamin C / Active 1000mg 1 po qd Unknown 0000 prn Calcium / Active Tablets 500mg 1 by Unknown 0000 mouth every day Cpap / Active Device for use Unknown 0000 while sleeping Aspirin Ec / Active Tablets DR 81mg bid daily Unknown 0000 Metformin HCL / Active Tablets 500mg 1 by Unknown 0000 mouth twice a day Valsartan / Active Tablets 320mg 90tab Take 1 Isidra 0000 s Tablet Rita, Daily M.D. Fish Oil / Active Capsules 1400mg 1 by Unknown 0000 mouth a day Fluticasone / Active Suspension 50mcg/Act [place] One Unknown Propionate 0000 [place] In Each Nostril Every Day as Needed Ibuprofen 09/10/ Hx Tablets 400mg 1 by Isidra 2016 - mouth Rita, 10/16/ every 8 M.D. 2017 hour as needed for pain Flonase Allergy 08/15/ Hx Suspension 50mcg/Act 16uni spray 1 Isidra Relief 2016 - ts spray in Rita, 12/11/ each M.D. 2018 nostril daily as needed Tramadol HCL 08/07/ Hx Tablets 50mg 60tab 1 tab by Alejandra 2016 mouth Vincent, 08/25/ every 4-6 M.D. 2017 hours as needed for pain Coumadin 07/24/ Hx Tablets 2mg 90tab take 1-3 Alejandra 2016 - tabs by Vincent, 08/25/ mouth at M.D. 2017 5 at night as directed. do not fill until 07/28/17. Percocet 07/24/ Hx Tablets 5-325mg 90tab 1-2 by Alejandra 2016 mouth Vincent, 08/25/ every 4-6 M.D. 2017 hours as needed pain. do not fill until 07/28/17. Colace 07/24/ Hx Capsules 100mg 90cap 1 tab by Alejadnra 2016 mouth 2-3 Vincent, 09/09/ times a M.D. 2016 day as needed Valsartan 07/15/ Hx Tablets 320mg 90tab once a I10 Isidra 2016 day Salinas, 08/25/ M.D. 2017 Nasonex 02/11/ Hx Suspension 50mcg/Act 1unit 2 sprays Isidra 2016 to each Salinas, 07/28/ nostril M.D. 2016 twice daily prn Metformin HCL 02/07/ Hx Tablets 500mg 60tab 1 by R73.01 Isidra 2016 mouth Salinas, 07/09/ twice a M.D. 2017 day Ergocalciferol 09/26/ Hx Capsules [id number] 8caps 1 tab by Isidra 2015 mouth Salinas, 02/07/ every M.D. 2017 week Valsartan 02/26/ Hx Tablets 160mg 90tab once a I10 Isidra 2015 day Salinas, 07/15/ M.D. 2017 Amlodipine 02/26/ Hx Tablets 5mg 30tab Not I10 Isidra Besylate 2015 Taking Salinas, 04/10/ M.D. 2016 Sertraline HCL 02/12/ Hx Tablets 50mg 90tab 1 by Isidra 2015 mouth Salinas, 02/12/ every day M.D. 2016 Ergocalciferol 05/25/ Hx Capsules [id number] 8caps 1 tab by Isidra 2014 - mouth Salinas, 02/05/ every M.D. 2016 week Advil 05/25/ Hx Tablets 200mg OTC daily Isidra 2014 - Salinas, 07/23/ M.D. 2017 Detrol 12/30/ Hx Tablets 2mg 180ta Take 1 Chacha 2012 - bs Tablet Yumiko, 11/29/ Twice A M.D., FACP 2014 Valsartan-Hydroc 09/30/ Hx Tablets 320-25mg 90tab take 1 Isidra hlorothiazide 2011 - s tablet Salinas, 02/26/ every M.D. 2016 morning Metformin HCL ER 07/30/ Hx Tablets ER 500mg 90tab take 1 Isidra 2011 - 24HR s tablet Salinas, 08/25/ with M.D. 2017 dinner Tramadol HCL 12/24/ Hx Tablets 50mg 60tab one 807.00 Chacha 2011 - s tablet Yumiko, 12/24/ every 6 M.D., FACP 2012 hours as needed Ciprofloxacin 09/24/ Hx Tablets 250mg 14tab one po 599.0 Chacha HCL 2010 - s bid for 7 Yumiko, 10/01/ days M.D., FACP 2011 Pyridium 09/24/ Hx Tablets 100mg 9tabs one po 599.0 Chacha 2010 - tid for 3 Yumiko, 12/24/ days M.D., FACP 2011 Diovan HCT 07/25/ Hx Tablets 320-25mg 90tab Take 1 Chacha 2010 - s Tablet Yumiko, 09/30/ Every M.D., FACP 2011 Morning Baby Aspirin 03/27/ Hx Chewtabs 81mg 100un 1 by Chacha 2010 - its mouth Yumiko, 07/23/ every day M.D., FACP 2016 Diovan HCT / Hx 320-25mg Yumiko, 0000 - MD Chacha 2010 Lipitor / Hx Tablets 10mg 90tab one by Chacha - s mouth Yumiko, 03/13/ daily M.D., FACP 2011 Synthroid / Hx 50mcg 90uni 1 po qd Yumiko, 0000 - ts MD Chacha 2010 Diovan / Hx Tablets 160mg 1 by Chacha 0000 - mouth Yumiko, 07/25/ once M.D., FACP 2010 daily Nasonex 00/00/ Hx Suspension 50mcg/Act 1unit 2 sprays Chacha 0000 - s to each Yumiko, 05/25/ nostril M.D., [facility] 2014 twice daily prn Meloxicam / Hx Tablets 7.5mg 30tab 1 po bid Unknown 0000 - s 2011 Detrol 00/ Hx Tablets 2mg 180ta Take 1 Chacha 0000 - bs Tablet Yumiko, 09/30/ Twice A M.D., FACP 2011 Metformin HCL 00/ Hx Tablets 500mg 90tab Take 1 Chacha 0000 - s Tablet At Yumiko, 07/30/ Dinner M.D., FACP 2011 Evista / Hx Tablets 60mg 90tab take 1 Ronit 0000 - s tablet Cotton, 12/14/ daily M.D. 2014 Sertraline HCL / Hx Tablets 25mg 5tabs take 1 Isidra 0000 - tablet Salinas, 11/28/ every M.D. 2015 other day X 7 days then stop Fish Oil / Hx 1400mg 1 po qd Unknown 0000 - 2016 Vitamin D3 High / Hx Capsules 2000Iu 1 by Unknown Potency 0000 - mouth 09/23/ every day 2016 Vitamin D-3 / Hx Capsules 1000Unit 1 by Unknown 0000 - mouth 07/23/ every day 2016 Tylenol Extra / Hx Tablets 500mg 2 by Unknown Strength 0000 - mouth as 10/13/ needed 2016 Oxycodone-Acetam / Hx Tablets 5-325mg Take 1 2 Unknown inophen 0000 - Tablets 09/09/ By Mouth 2016 Every 4 To 6 Hours as Needed Maximum Daily D Ibuprofen 00/ Hx Tablets 800mg by mouth Unknown 0000 - three 09/10/ times a 2016 day as needed Medications Administered in Office Medication Date Status Form Strength Qnty SIG Indications Ordering Provider Technetium TC Administered Injection Ica Nuclear 99M 017 Schedule Tetrofosmin, Per Unit Dose Up To 40 Millicuries Inj, Administered Injection Kaiden Hathaway Regadenoson, 017 Caitlin Marie 0.1 MG Technetium TC Administered Injection Kaiden Hathaway 99M 017 Caitlin Marie Tetrofosmin, Per Unit Dose Up To 40 Millicuries Depomedrol Administered Injection Alejandra 40MG 017 Caitlin Kaur Depomedrol Administered Injection Alejandra 40MG 017 Caitlin Kaur Depomedrol Administered Injection Alejandra 40MG 017 Caitlin Kaur Inj, Administered Injection Kaiden Hathaway Regadenoson, 013 Caitlin Marie 0.1 MG Technetium TC Administered Injection Kaiden D. 99M 013 Caitlin Marie Tetrofosmin, Per Unit Dose Up To 40 Millicuries Immunizations CPT Code Status Date Vaccine Lot # [id number] Given 01/02/2018 Pneumonia Vaccine [id number] 72875 Given 09/10/2017 Influenza Virus Vaccine, Quadrivalent, Split, [id number] Preservative Free 62896 Given 07/15/2017 Tdap - Tetanus/Diptheria/Acellular Pertussis [id number] 34027 Given 09/19/2016 Influenza Virus Vaccine, Quadrivalent, Split [id number] Virus, Im Use 71953 Given 11/28/2015 Influenza Virus Vaccine, Quadrivalent, Split, [id number] Preservative Free 30224 Given 05/25/2015 Pneumococcal Conjugate Vaccine 13 Valent For [id number] Intramuscular Use 61782 Given 09/21/2013 Flu Vaccine Split Virus Preservative Free For [id number] Indiv 3Yr Older 58710 Given 12/30/2012 Tdap - Tetanus/Diptheria/Acellular Pertussis [id number] Q2038 Given 07/30/2012 Fluzone Vaccine [id number] Q2035 Given 07/30/2011 Afluria Vaccine [id number] 94990 Given 10/06/2009 Influenza Virus 3Yrs & Over 44459 Given 12/30/2006 Zoster (Zostavax) 58456 Given 12/30/2006 Pneumonia Vaccine 81458 Given 12/30/2006 Pneumonia Vaccine 27336 Given 02/01/2003 Tetanus And Diptheria (Td) For Adult Use Preservative Free Vital Signs Date Vital Result Comment 01/02/2018 Height 63.4 inches 5'3.40" Weight 214.00 lb Heart Rate 59 /min BP Systolic Sitting 130 mmHg BP Diastolic Sitting 60 mmHg O2 % BldC Oximetry 94 % BMI (Body Mass Index) 37.4 kg/m2 12/11/2017 Weight 215.00 lb Heart Rate 57 /min BP Systolic Sitting 158 mmHg BP Diastolic Sitting 78 mmHg O2 % BldC Oximetry 93 % 12/04/2017 Height 63.5 inches 5'3.50" Weight 212.00 lb BP Systolic 160 mmHg BP Diastolic 82 mmHg Body Temperature 98.1 F Pain Level 2 BMI (Body Mass Index) 37.0 kg/m2 10/16/2017 Weight 216.00 lb Heart Rate 63 /min BP Systolic Sitting 136 mmHg BP Diastolic Sitting 58 mmHg BP Systolic Standing 140 mmHg BP Diastolic Standing 68 mmHg O2 % BldC Oximetry 95 % 10/14/2017 Height 63.5 inches 5'3.50" Weight 208.00 lb BP Systolic 150 mmHg BP Diastolic 60 mmHg Body Temperature 98.4 F BMI (Body Mass Index) 36.3 kg/m2 09/30/2017 Height 62 inches 5'2" Weight 215.00 lb Heart Rate 88 /min BP Systolic 152 mmHg BP Diastolic 74 mmHg Body Temperature 98.7 F Pain Level 2 BMI (Body Mass Index) 39.3 kg/m2 09/23/2017 BP Systolic Sitting 148 mmHg R arm, 144/84 BP Diastolic Sitting 90 mmHg R arm, 144/84 09/17/2017 BP Systolic Sitting 166 mmHg BP Diastolic Sitting 64 mmHg 09/13/2017 Height 62 inches 5'2" Weight 215.00 lb BP Systolic 140 mmHg BP Diastolic 88 mmHg Respiratory Rate 14 /min Body Temperature 98.4 F Pain Level 2 BMI (Body Mass Index) 39.3 kg/m2 09/10/2017 Weight 215.00 lb Heart Rate 65 /min BP Systolic Sitting 146 mmHg BP Diastolic Sitting 58 mmHg Body Temperature 99.0 F O2 % BldC Oximetry 97 % 08/28/2017 Heart Rate 69 /min BP Systolic 135 mmHg BP Diastolic 56 mmHg Body Temperature 97.8 F 08/26/2017 Height 62.75 inches 5'2.75" Weight 220.00 lb BP Systolic 124 mmHg BP Diastolic 64 mmHg Respiratory Rate 20 /min Body Temperature 98.0 F Pain Level 9 BMI (Body Mass Index) 39.3 kg/m2 08/14/2017 Height 62.75 inches 5'2.75" Weight 220.00 lb Heart Rate 76 /min BP Systolic 152 mmHg BP Diastolic 66 mmHg Body Temperature 97.2 F Pain Level 2 BMI (Body Mass Index) 39.3 kg/m2 07/29/2017 Height 62.75 inches 5'2.75" Weight 220.00 lb with shoes Heart Rate 60 /min BP Systolic Sitting 142 mmHg lareg cuff rue BP Diastolic Sitting 72 mmHg lareg cuff rue BMI (Body Mass Index) 39.3 kg/m2 Ejection Fraction 55-60% echo 06/30/17 07/24/2017 Height 62.75 inches 5'2.75" Weight 221.00 lb Heart Rate 70 /min BP Systolic 142 mmHg BP Diastolic 68 mmHg Respiratory Rate 20 /min Body Temperature 97.9 F Pain Level 3 BMI (Body Mass Index) 39.5 kg/m2 07/15/2017 Height 62.5 inches 5'2.50" Weight 218.00 lb Heart Rate 68 /min BP Systolic Sitting 162 mmHg 158/70 BP Diastolic Sitting 70 mmHg 158/70 Body Temperature 98.1 F O2 % BldC Oximetry 93 % BMI (Body Mass Index) 39.2 kg/m2 07/10/2017 Height 62.5 inches 5'2.50" Weight 219.00 lb Heart Rate 64 /min BP Systolic Sitting 148 mmHg Rue large cuff BP Diastolic Sitting 78 mmHg Rue large cuff BP Systolic Standing 152 mmHg Lue BP Diastolic Standing 80 mmHg Lue Respiratory Rate 18 /min BMI (Body Mass Index) 39.4 kg/m2 Ejection Fraction 59% 02/05/13 echo 03/19/2017 Height 62.75 inches 5'2.75" Weight 216.38 lb Heart Rate 72 /min BP Systolic 120 mmHg BP Diastolic 60 mmHg Body Temperature 97.7 F O2 % BldC Oximetry 93 % BMI (Body Mass Index) 38.6 kg/m2 03/01/2017 Height 62.75 inches 5'2.75" Weight 221.00 lb Heart Rate 68 /min BP Systolic 121 mmHg BP Diastolic 57 mmHg Respiratory Rate 16 /min Body Temperature 97.3 F Pain Level 2 BMI (Body Mass Index) 39.5 kg/m2 02/18/2017 Height 62.75 inches 5'2.75" Weight 221.00 lb Heart Rate 60 /min BP Systolic 140 mmHg BP Diastolic 78 mmHg BMI (Body Mass Index) 39.5 kg/m2 02/07/2017 Weight 220.00 lb Heart Rate 54 /min BP Systolic Sitting 128 mmHg BP Diastolic Sitting 82 mmHg Respiratory Rate 15 /min Body Temperature 98.2 F O2 % BldC Oximetry 98 % 09/19/2016 Weight 226.00 lb Heart Rate 53 /min BP Systolic 132 mmHg BP Diastolic 62 mmHg Body Temperature 98.8 F O2 % BldC Oximetry 97 % 09/13/2016 Height 63.5 inches 5'3.50" Weight 222.00 lb Pain Level 0 BMI (Body Mass Index) 38.7 kg/m2 08/23/2016 Height 63.5 inches 5'3.50" Weight 222.00 lb Pain Level 4 BMI (Body Mass Index) 38.7 kg/m2 08/01/2016 Weight 221.00 lb Heart Rate 61 /min BP Systolic Sitting 142 mmHg BP Diastolic Sitting 64 mmHg Body Temperature 97.6 F O2 % BldC Oximetry 97 % 03/19/2016 Weight 223.00 lb Heart Rate 78 /min BP Systolic Sitting 124 mmHg BP Diastolic Sitting 80 mmHg Body Temperature 98.9 F O2 % BldC Oximetry 92 % 02/27/2016 Height 63 inches 5'3" Weight 223.00 lb Heart Rate 58 /min BP Systolic 140 mmHg BP Diastolic 65 mmHg Body Temperature 98.8 F O2 % BldC Oximetry 90 % BMI (Body Mass Index) 39.5 kg/m2 02/10/2016 Height 63.5 inches 5'3.50" Weight 227.00 lb Heart Rate 57 /min BP Systolic Sitting 132 mmHg BP Diastolic Sitting 68 mmHg Body Temperature 97.6 F O2 % BldC Oximetry 96 % BMI (Body Mass Index) 39.6 kg/m2 02/06/2016 Weight 226.00 lb Heart Rate 61 /min BP Systolic Sitting 150 mmHg BP Diastolic Sitting 74 mmHg Body Temperature 98.3 F O2 % BldC Oximetry 97 % 11/28/2015 Height 63.5 inches 5'3.50" Weight 227.00 lb Heart Rate 72 /min BP Systolic Sitting 128 mmHg BP Diastolic Sitting 74 mmHg Respiratory Rate 15 /min Body Temperature 98.2 F O2 % BldC Oximetry 98 % BMI (Body Mass Index) 39.6 kg/m2 05/25/2015 Height 63.5 inches 5'3.50" Weight 215.00 lb Heart Rate 63 /min BP Systolic 123 mmHg BP Diastolic 61 mmHg Body Temperature 98.0 F BMI (Body Mass Index) 37.5 kg/m2 11/29/2014 Height 63.5 inches 5'3.50" Weight 206.50 lb Heart Rate 60 /min BP Systolic Sitting 142 mmHg BP Diastolic Sitting 64 mmHg O2 % BldC Oximetry 95 % BMI (Body Mass Index) 36.0 kg/m2 01/05/2014 Height 63.5 inches 5'3.50" Weight 234.75 lb Heart Rate 68 /min BP Systolic Sitting 130 mmHg BP Diastolic Sitting 60 mmHg Respiratory Rate 18 /min Body Temperature 8.4 F BMI (Body Mass Index) 40.9 kg/m2 09/21/2013 Weight 236.25 lb Heart Rate 90 /min BP Systolic Sitting 138 mmHg BP Diastolic Sitting 62 mmHg 12/30/2012 Height 63.5 inches 5'3.50" Weight 227.00 lb Heart Rate 76 /min BP Systolic Sitting 122 mmHg BP Diastolic Sitting 68 mmHg BMI (Body Mass Index) 39.6 kg/m2 07/30/2012 Height 63.25 inches 5'3.25" Weight 234.00 lb Heart Rate 60 /min BP Systolic Sitting 122 mmHg BP Diastolic Sitting 60 mmHg BMI (Body Mass Index) 41.1 kg/m2 02/11/2012 Height 63.25 inches 5'3.25" Weight 230.00 lb Heart Rate 64 /min BP Systolic Sitting 126 mmHg BP Diastolic Sitting 62 mmHg BMI (Body Mass Index) 40.4 kg/m2 01/29/2012 Height 63.25 inches 5'3.25" Weight 226.00 lb Heart Rate 68 /min BP Systolic Sitting 146 mmHg 130/60 (repeat) BP Diastolic Sitting 60 mmHg 130/60 (repeat) BMI (Body Mass Index) 39.7 kg/m2 12/24/2011 Height 63.25 inches 5'3.25" Weight 235.00 lb Heart Rate 68 /min BP Systolic Sitting 132 mmHg l BP Diastolic Sitting 64 mmHg l BMI (Body Mass Index) 41.3 kg/m2 10/17/2011 Height 63.25 inches 5'3.25" Weight 235.00 lb Heart Rate 68 /min BP Systolic Sitting 126 mmHg BP Diastolic Sitting 52 mmHg BMI (Body Mass Index) 41.3 kg/m2 09/24/2011 Weight 236.00 lb Heart Rate 66 /min BP Systolic Standing 132 mmHg BP Diastolic Standing 58 mmHg Body Temperature 97.4 F lt ear 07/30/2011 Height 63.5 inches 5'3.50" Weight 235.00 lb Heart Rate 54 /min BP Systolic Sitting 142 mmHg BP Diastolic Sitting 58 mmHg BMI (Body Mass Index) 41.0 kg/m2 03/27/2011 Height 63.5 inches 5'3.50" Weight 237.00 lb Heart Rate 82 /min BP Systolic Sitting 124 mmHg lg cuff BP Diastolic Sitting 70 mmHg lg cuff BMI (Body Mass Index) 41.3 kg/m2 02/06/2011 Height 63.5 inches 5'3.50" Weight 236.75 lb Heart Rate 76 /min BP Systolic 130 mmHg BP Diastolic 70 mmHg BMI (Body Mass Index) 41.3 kg/m2 Results Test Date Test Result H/L Range Note Laboratory test 01/02/2018 Influenza A & B <pending> finding Request Hemoglobin/Hematocri 12/10/2017 Hemoglobin 12.4 g/dL 12.0-16.0 t Hematocrit 37 % 35-47 Laboratory test finding 09/03/2017 Point of Care Glucose 108 mg/dL High 70 -100 1 Type & Screen 09/03/2017 Patient Blood Type O Positive 2 Antibody Screen NEGATIVE 2 Urine Culture And Sensitivities 08/29/2017 Urine Culture SEE RESULT BELOW 3 Type & Screen 08/29/2017 Patient Blood Type O Positive Antibody Screen NEGATIVE CBC No Diff 08/29/2017 White Blood Count 7.6 10^3/uL 3.5-10.8 Red Blood Count 3.19 10^6/uL Low 4.0-5.4 Hemoglobin 9.6 g/dL Low 12.0-16.0 Hematocrit 29 % Low 35-47 Mean Corpuscular Volume 92 fL 80-97 Mean Corpuscular Hemoglobin 30 pg 27-31 Mean Corpuscular HGB Conc 33 g/dL 31-36 Red Cell Distribution Width 14 % 10.5-15 Platelet Count 262 10^3/uL 150-450 Mean Platelet Volume 8 um3 7.4-10.4 Inr/Protime 08/29/2017 Inr 0.90 0.89-1.11 Laboratory test finding 08/29/2017 Partial Thrombo Time 27.6 seconds 26.0 -36.3 PTT Urinalysis Profile 08/29/2017 Urine Color Yellow Urine Appearance Clear Urine Specific [place] 1.015 1.010-1.030 Urine pH 5.0 5-9 Urine Urobilinogen Negative Negative Urine Ketones Negative Negative Urine Protein 1+(30 mg/dL) Negative Urine Leukocytes Negative Negative Urine Blood 1+ Negative Urine Nitrite Negative Negative Urine Bilirubin Negative Negative Urine Glucose Negative Negative Urine White Blood Cell 2+(11-20/hpf) Absent Urine Red Blood Cell Trace(0-2/hpf) Absent Urine Bacteria Absent Absent Urine Squamous Epithelial Cell Present Absent Urine Hyaline Casts Present Absent Comp Metabolic Panel 08/29/2017 Sodium 137 mmol/L 133-145 Potassium 4.5 mmol/L 3.5-5.0 Chloride 104 mmol/L 101-111 Co2 Carbon Dioxide 26 mmol/L 22-32 Anion Gap 7 mmol/L 2-11 Glucose 125 mg/dL High 70-100 Blood Urea Nitrogen 30 mg/dL High 6-24 Creatinine 1.24 mg/dL High 0.51-0.95 BUN/Creatinine Ratio 24.2 High 8-20 Calcium 9.8 mg/dL 8.6-10.3 Total Protein 7.2 g/dL 6.4-8.9 Albumin 3.8 g/dL 3.2-5.2 Globulin 3.4 g/dL 2-4 Albumin/Globulin Ratio 1.1 1-3 Total Bilirubin 0.50 mg/dL 0.2-1.0 Alkaline Phosphatase 56 U/L 34-104 Alt 12 U/L 7-52 Ast 20 U/L 13-39 Egfr Non- 42.1 >60 Egfr 54.1 >60 4 Comp Metabolic Panel 08/25/2017 Sodium 137 mmol/L 133-145 Potassium 4.0 mmol/L 3.5-5.0 Chloride 104 mmol/L 101-111 Co2 Carbon Dioxide 26 mmol/L 22-32 Anion Gap 7 mmol/L 2-11 Glucose 133 mg/dL High 70-100 Blood Urea Nitrogen 23 mg/dL 6-24 Creatinine 1.28 mg/dL High 0.51-0.95 BUN/Creatinine Ratio 18.0 8-20 Calcium 9.7 mg/dL 8.6-10.3 Total Protein 7.8 g/dL 6.4-8.9 Albumin 4.0 g/dL 3.2-5.2 Globulin 3.8 g/dL 2-4 Albumin/Globulin Ratio 1.1 1-3 Total Bilirubin 0.30 mg/dL 0.2-1.0 Alkaline Phosphatase 60 U/L 34-104 Alt 12 U/L 7-52 Ast 17 U/L 13-39 Egfr Non- 40.5 >60 Egfr 52.1 >60 5 CBC No Diff 08/25/2017 White Blood Count 10.2 10^3/uL 3.5-10.8 Red Blood Count 3.31 10^6/uL Low 4.0-5.4 Hemoglobin 9.9 g/dL Low 12.0-16.0 Hematocrit 30 % Low 35-47 Mean Corpuscular Volume 91 fL 80-97 Mean Corpuscular Hemoglobin 30 pg 27-31 Mean Corpuscular HGB Conc 33 g/dL 31-36 Red Cell Distribution Width 14 % 10.5-15 Platelet Count 316 10^3/uL 150-450 Mean Platelet Volume 7 um3 Low 7.4-10.4 Laboratory test finding 08/25/2017 Partial Thrombo Time 28.2 seconds 26.0 -36.3 PTT Inr/Protime 08/25/2017 Inr 0.98 0.89-1.11 Comp Metabolic Panel 08/06/2017 Sodium 136 mmol/L 133-145 Potassium 4.7 mmol/L 3.5-5.0 Chloride 104 mmol/L 101-111 Co2 Carbon Dioxide 25 mmol/L 22-32 Anion Gap 7 mmol/L 2-11 Glucose 103 mg/dL High 70-100 Blood Urea Nitrogen 20 mg/dL 6-24 Creatinine 1.25 mg/dL High 0.51-0.95 BUN/Creatinine Ratio 16.0 8-20 Calcium 8.9 mg/dL 8.6-10.3 Total Protein 6.3 g/dL Low 6.4-8.9 Albumin 3.2 g/dL 3.2-5.2 Globulin 3.1 g/dL 2-4 Albumin/Globulin Ratio 1.0 1-3 Total Bilirubin 0.70 mg/dL 0.2-1.0 Alkaline Phosphatase 41 U/L 34-104 Alt 14 U/L 7-52 Ast 21 U/L 13-39 Egfr Non- 41.7 >60 Egfr 53.6 >60 6 Laboratory test finding 08/06/2017 Point of Care Glucose 142 mg/dL High 70 -100 7 CBC Auto Diff 08/06/2017 White Blood Count 8.7 10^3/uL 3.5-10.8 Red Blood Count 2.72 10^6/uL Low 4.0-5.4 Hemoglobin 8.5 g/dL Low 12.0-16.0 Hematocrit 25 % Low 35-47 Mean Corpuscular Volume 93 fL 80-97 Mean Corpuscular Hemoglobin 31 pg 27-31 Mean Corpuscular HGB Conc 34 g/dL 31-36 Red Cell Distribution Width 13 % 10.5-15 Platelet Count 262 10^3/uL 150-450 Mean Platelet Volume 7 um3 Low 7.4-10.4 Abs Neutrophils 6.6 10^3/uL 1.5-7.7 Abs Lymphocytes 0.8 10^3/uL Low 1.0-4.8 Abs Monocytes 0.8 10^3/uL 0-0.8 Abs Eosinophils 0.4 10^3/uL 0-0.6 Abs Basophils 0 10^3/uL 0-0.2 Abs Nucleated RBC 0 10^3/uL Granulocyte % 76.7 % 38-83 Lymphocyte % 9.1 % Low 25-47 Monocyte % 9.0 % 1-9 Eosinophil % 5.0 % 0-6 Basophil % 0.2 % 0-2 Nucleated Red Blood Cells % 0 Laboratory test finding 08/04/2017 B-Type Natriuretic 55 pg/mL 8 Peptide BNP CBC Auto Diff 08/04/2017 White Blood Count 8.5 10^3/uL 3.5-10.8 Red Blood Count 2.72 10^6/uL Low 4.0-5.4 Hemoglobin 8.8 g/dL Low 12.0-16.0 Hematocrit 25 % Low 35-47 Mean Corpuscular Volume 93 fL 80-97 Mean Corpuscular Hemoglobin 32 pg High 27-31 Mean Corpuscular HGB Conc 35 g/dL 31-36 Red Cell Distribution Width 13 % 10.5-15 Platelet Count 212 10^3/uL 150-450 Mean Platelet Volume 8 um3 7.4-10.4 Abs Neutrophils 6.2 10^3/uL 1.5-7.7 Abs Lymphocytes 1.2 10^3/uL 1.0-4.8 Abs Monocytes 0.8 10^3/uL 0-0.8 Abs Eosinophils 0.3 10^3/uL 0-0.6 Abs Basophils 0 10^3/uL 0-0.2 Abs Nucleated RBC 0.01 10^3/uL Granulocyte % 72.1 % 38-83 Lymphocyte % 14.3 % Low 25-47 Monocyte % 9.4 % High 1-9 Eosinophil % 3.6 % 0-6 Basophil % 0.6 % 0-2 Nucleated Red Blood Cells % 0.1 Inr/Protime 08/04/2017 Inr 0.90 0.89-1.11 Laboratory test finding 08/04/2017 Partial Thrombo Time 27.8 seconds 26.0 -36.3 PTT Comp Metabolic Panel 08/04/2017 Sodium 138 mmol/L 133-145 Potassium 4.0 mmol/L 3.5-5.0 Chloride 104 mmol/L 101-111 Co2 Carbon Dioxide 27 mmol/L 22-32 Anion Gap 7 mmol/L 2-11 Glucose 109 mg/dL High 70-100 Blood Urea Nitrogen 27 mg/dL High 6-24 Creatinine 1.18 mg/dL High 0.51-0.95 BUN/Creatinine Ratio 22.9 High 8-20 Calcium 9.2 mg/dL 8.6-10.3 Total Protein 6.7 g/dL 6.4-8.9 Albumin 3.5 g/dL 3.2-5.2 Globulin 3.2 g/dL 2-4 Albumin/Globulin Ratio 1.1 1-3 Total Bilirubin 0.60 mg/dL 0.2-1.0 Alkaline Phosphatase 58 U/L 34-104 Alt 14 U/L 7-52 Ast 25 U/L 13-39 Egfr Non- 44.5 >60 Egfr 57.3 >60 9 Laboratory test finding 08/04/2017 C Reactive Protein 104.46 mg/L High &lt ; 5.00 10 Lactic Acid 1.1 mmol/L 0.5-2.0 11 Inr/Protime 07/24/2017 Inr 0.90 0.89-1.11 Laboratory test finding 07/24/2017 Partial Thrombo Time 31.9 seconds 26.0 -36.3 PTT CBC No Diff 07/24/2017 White Blood Count 8.1 10^3/uL 3.5-10.8 Red Blood Count 4.21 10^6/uL 4.0-5.4 Hemoglobin 13.0 g/dL 12.0-16.0 Hematocrit 40 % 35-47 Mean Corpuscular Volume 94 fL 80-97 Mean Corpuscular Hemoglobin 31 pg 27-31 Mean Corpuscular HGB Conc 33 g/dL 31-36 Red Cell Distribution Width 13 % 10.5-15 Platelet Count 222 10^3/uL 150-450 Mean Platelet Volume 9 um3 7.4-10.4 Urinalysis Profile 07/24/2017 Urine Color Yellow Urine Appearance Clear Urine Specific Ellsworth 1.015 1.010-1.030 Urine pH 5.0 5-9 Urine Urobilinogen Negative Negative Urine Ketones Negative Negative Urine Protein Negative Negative Urine Leukocytes 1+ Negative Urine Blood Negative Negative Urine Nitrite Negative Negative Urine Bilirubin Negative Negative Urine Glucose Negative Negative Urine White Blood Cell Trace(0-5/hpf) Absent Urine Red Blood Cell Absent Absent Urine Bacteria Absent Absent Urine Squamous Epithelial Cell Present Absent Comp Metabolic Panel 07/24/2017 Sodium 142 mmol/L 133-145 Potassium 4.5 mmol/L 3.5-5.0 Chloride 106 mmol/L 101-111 Co2 Carbon Dioxide 30 mmol/L 22-32 Anion Gap 6 mmol/L 2-11 Glucose 74 mg/dL 70-100 Blood Urea Nitrogen 17 mg/dL 6-24 Creatinine 1.08 mg/dL High 0.51-0.95 BUN/Creatinine Ratio 15.7 8-20 Calcium 9.9 mg/dL 8.6-10.3 Total Protein 7.3 g/dL 6.4-8.9 Albumin 4.2 g/dL 3.2-5.2 Globulin 3.1 g/dL 2-4 Albumin/Globulin Ratio 1.4 1-3 Total Bilirubin 0.50 mg/dL 0.2-1.0 Alkaline Phosphatase 57 U/L 34-104 Alt 16 U/L 7-52 Ast 19 U/L 13-39 Egfr Non- 49.3 >60 Egfr 63.4 >60 12 Type & Screen 07/24/2017 Patient Blood Type O Positive Antibody Screen NEGATIVE Urine Culture And 07/24/2017 Urine Culture SEE RESULT BELOW 13 Sensitivities Laboratory test finding 07/23/2017 Uric Acid 5.4 mg/dL 2.3-6.6 Basic Metabolic Panel 07/23/2017 Sodium 140 mmol/L 133-145 Potassium 4.7 mmol/L 3.5-5.0 Chloride 110 mmol/L 101-111 Co2 Carbon Dioxide 26 mmol/L 22-32 Anion Gap 4 mmol/L 2-11 Glucose 105 mg/dL High 70-100 Blood Urea Nitrogen 20 mg/dL 6-24 Creatinine 1.13 mg/dL High 0.51-0.95 BUN/Creatinine Ratio 17.7 8-20 Calcium 9.6 mg/dL 8.6-10.3 Egfr Non- 46.8 >60 Egfr 60.2 >60 14 Laboratory test finding 07/23/2017 TSH (Thyroid Stim Horm) 1.29 mcIU/mL 0.34-5.60 Hemoglobin A1c (Glyco HGB) 5.7 % Less than 6.0 15 Lipid Profile (Trig/Chol/HDL) 01/21/2017 Triglycerides 85 mg/dL 16 Cholesterol 112 mg/dL 17 HDL Cholesterol 42.5 mg/dL 18 LDL Cholesterol 53 mg/dL 19 Laboratory test finding 01/21/2017 Uric Acid 8.2 mg/dL High 2.3-6.6 20 Hemoglobin A1c (Glyco HGB) 6.3 % High Less than 6.0 21 Vitamin D Total 25(Oh) 28.9 ng/mL Low 30-50 22 Basic Metabolic Panel 09/19/2016 Sodium 137 mmol/L 133-145 Potassium 4.3 mmol/L 3.5-5.0 Chloride 103 mmol/L 101-111 Co2 Carbon Dioxide 25 mmol/L 22-32 Anion Gap 9 mmol/L 2-11 Glucose 101 mg/dL High 70-100 Blood Urea Nitrogen 25 mg/dL High 6-24 Creatinine 1.24 mg/dL High 0.51-0.95 BUN/Creatinine Ratio 20.2 High 8-20 Calcium 9.9 mg/dL 8.6-10.3 Egfr Non- 42.2 >60 Egfr 54.2 >60 23 Laboratory test finding 09/19/2016 Vitamin D Total 25(Oh) 22.0 ng/mL Low 30-50 TSH (Thyroid Stim Horm) 1.64 mcIU/mL 0.34-5.60 Laboratory test finding 09/19/2016 Hemoglobin A1c 5.9 5-7 Laboratory test finding 07/24/2016 Uric Acid 6.3 mg/dL 2.3-6.6 Laboratory test finding 04/18/2016 Uric Acid 7.6 mg/dL High 2.3-6.6 Basic Metabolic Panel 04/18/2016 Sodium 141 mmol/L 133-145 Potassium 4.2 mmol/L 3.5-5.0 Chloride 103 mmol/L 101-111 Co2 Carbon Dioxide 31 mmol/L 22-32 Anion Gap 7 mmol/L 2-11 Glucose 90 mg/dL 70-100 Blood Urea Nitrogen 24 mg/dL 6-24 Creatinine 1.25 mg/dL High 0.51-0.95 BUN/Creatinine Ratio 19.2 8-20 Calcium 10.0 mg/dL 8.6-10.3 Egfr Non- 41.9 >60 Egfr 53.9 >60 24 Ua Routine 02/27/2016 Ua Specific Ellsworth 1.015 Ua PH 5 Ua Color yellow Ua Appera cloudy Ua WBC trace Ua Protein neg Ua Glucose neg Ua Ketones neg Ua Bilirubin neg Ua Urobilinogen normal Ua Nitrite neg Ua Occult Blood small Laboratory test 02/23/2016 Uric Acid 7.8 mg/dL High 2.3-6.6 finding Laboratory test 02/15/2016 Point of Care Glucose 110 mg/dL High 74-106 25 finding Laboratory test 11/28/2015 TSH (Thyroid Stim 1.36 ?IU/mL 0.34-5.60 finding Horm) Laboratory test 11/28/2015 Hemoglobin A1c 5.9 5-7 finding Basic Metabolic Panel 11/28/2015 Sodium 140 mmol/L 133-145 Potassium 4.3 mmol/L 3.5-5.0 Chloride 104 mmol/L 101-111 Co2 Carbon Dioxide 29 mmol/L 22-32 Anion Gap 7 mmol/L 2-11 Glucose 100 mg/dL 70-100 Blood Urea Nitrogen 20 mg/dL 6-24 Creatinine 1.07 mg/dL High 0.51-0.95 BUN/Creatinine Ratio 18.7 8-20 Calcium 9.8 mg/dL 8.6-10.3 Egfr Non- 50.1 >60 Egfr 64.5 >60 26 Laboratory test 06/01/2015 Point of Care 131 mg/dL High 74-106 27 finding Glucose Laboratory test 05/25/2015 Gardnerella/Yeast: SEE RESULT BELOW 28 finding Vaginal Dna Laboratory test 05/20/2015 Vitamin D Total 24.0 ng/mL Low 30-50 finding 25(Oh) Pthi 05/20/2015 Calcium (PTH 9.4 mg/dL 8.6-10.3 Intact) PTH Intact 6.6 pmol/L 1.3-9.3 Lipid Profile (Trig/Chol/HDL) 05/20/2015 Triglycerides 67 mg/dL 29 Cholesterol 117 mg/dL 30 HDL Cholesterol 46.8 mg/dL 31 LDL Cholesterol 57 mg/dL 32 Laboratory test finding 05/20/2015 Hemoglobin A1c (Glyco 5.8 % Less than 6.0 33 HGB) Urine Microalbumin 11/29/2014 Ur Microalbumin (mg/L) 5.0 mg/L Random Urine Creatinine 102.51 mg/dL Urine Microalbumin/Creatinine 4.8 Less Than 31 Comp Metabolic Panel 11/24/2014 Sodium 140 mmol/L 133-145 Potassium 4.2 mmol/L 3.5-5.0 Chloride 104 mmol/L 101-111 Co2 Carbon Dioxide 27 mmol/L 22-32 Anion Gap 9 mmol/L 2-11 Glucose 83 mg/dL 70-100 Blood Urea Nitrogen 25 mg/dL High 6-24 Creatinine 1.07 mg/dL High 0.51-0.95 BUN/Creatinine Ratio 23.4 High 8-20 Calcium 9.7 mg/dL 8.6-10.3 Total Protein 7.1 g/dL 6.4-8.9 Albumin 4.0 g/dL 3.2-5.2 Globulin 3.1 g/dL 2-4 Albumin/Globulin Ratio 1.3 1-3 Total Bilirubin 0.40 mg/dL 0.2-1.0 Alkaline Phosphatase 53 U/L 34-104 Alt 18 U/L 7-52 Ast 23 U/L 13-39 Egfr Non- 50.3 >60 Egfr 64.6 >60 34 Laboratory test finding 11/24/2014 Hemoglobin A1c 5.8 % Less than 6.0 35 TSH (Thyroid Stimulating Horm) 1.77 IU/mL 0.34-5.60 Laboratory test finding 01/05/2014 Hemoglobin A1c 6.0 5-7 HPV High Risk 01/05/2014 Human Papillomavirus Source ECTO/ENDO HPV High Risk Type 16, PCR Negative Negative HPV High Risk Type 18, PCR Negative Negative HPV Other Risk types Negative Negative 36 Laboratory test finding 01/05/2014 Cytology RUN DATE: <SEE NOTE> Laboratory test finding 12/25/2013 Glucose 106 mg/dL High 70-100 38 Lipid Profile 12/25/2013 Triglycerides 96 mg/dL 40-200 (Trig/Chol/HDL) Cholesterol 128 mg/dL Less than 200 HDL Cholesterol 46 mg/dL 40-60 39 Cholesterol/HDL Ratio 2.8 Average 1-4.44 LDL Cholesterol 62.8 Less Than 100 40 Electrolytes 12/25/2013 Sodium 140 mmol/L 133-145 Potassium 4.2 mmol/L 3.5-5.0 Chloride 106 mmol/L 101-111 Co2 Carbon Dioxide 25.0 mmol/L 22-32 Anion Gap 9.0 mmol/L 2-11 Urine Microalbumin Random 12/25/2013 Ur Microalbumin (mg/L) 21.0 mg/L 41 Urine Creatinine 186.2 mg/dL Urine Microalbumin/Creatinine 11.3 Less Than 31 Laboratory test finding 09/21/2013 Hemoglobin A1c 6.0 5-7 Lipid Profile (Trig/Chol/HDL) 01/01/2013 Triglycerides 65 mg/dL 40-200 Cholesterol 115 mg/dL Less than 200 HDL Cholesterol 44 mg/dL 40-60 42 Cholesterol/HDL Ratio 2.6 Average 1-4.44 LDL Cholesterol 58.0 mg/dL Less Than 100 43 Laboratory test finding 01/01/2013 TSH (Thyroid Stimulating 1.71 miu/mL 0.34-5.60 44 Horm) Free T4 0.89 ng/mL 0.61-1.24 45 Comp Metabolic Panel 01/01/2013 Sodium 139 mmol/L 133-145 Potassium 3.9 mmol/L 3.5-5.0 Chloride 104 mmol/L 101-111 Co2 Carbon Dioxide 28.0 mmol/L 22-32 Anion Gap 7.0 mmol/L 2-11 Glucose 99 mg/dL 70-100 Blood Urea Nitrogen 20 mg/dL 6-24 Creatinine 1.10 mg/dL 0.50-1.40 BUN/Creatinine Ratio 18.2 8-20 Calcium 9.8 mg/dL 8.1-9.9 Total Protein 6.8 g/dL 6.2-8.1 Albumin 4.0 g/dL 3.2-5.2 Globulin 2.8 g/dL 2-4 Albumin/Globulin Ratio 1.4 1-3 Total Bilirubin 0.7 mg/dL 0.4-1.5 Alkaline Phosphatase 50 U/L 30-110 Alt 23 U/L 14-54 Ast 24 U/L 12-42 Egfr Non- 49.0 >60 Egfr 63.0 >60 46 Laboratory test finding 12/30/2012 Hemoglobin A1c 5.8 5-7 Urine Microalbumin Random 12/30/2012 Ur Microalbumin (Mg/L) 7.0 mg/L 47 Urine Creatinine 152.9 mg/dL Urine Microalbumin/Creatinine 4.6 ug/mg Less Than 31 Laboratory test finding 12/30/2012 Cytology RUN DATE: <SEE NOTE> Lipid Profile 07/30/2012 Triglyceride 63 mg/dL 40-200 (Trig/Chol/HDL) Cholesterol 118 mg/dL Less Than 200 49 High Density Lipoprotein 42 mg/dL 40-60 50 Cholesterol/HDL Ratio 2.81 AVERAGE 1-4.44 Low Density Lipoprotein 63 mg/dL Less Than 100 51 Comp Metabolic Panel 07/30/2012 Sodium 142 mmol/L 135-145 Potassium 4.8 mmol/L 3.5-5.0 Chloride 107 mmol/L 101-111 Co2 (Carbon Dioxide) 29.0 mmol/L 22-32 Anion Gap 6.0 mmol/L 2-11 52 Glucose 104 mg/dL High 70-100 BUN 19 mg/dL 6-24 Creatinine 1.1 mg/dL 0.50-1.40 One Over Creatinine 0.90 BUN/Creatinine Ratio 17.3 8-20 Calcium 9.5 mg/dL 8.1-9.9 Total Protein 6.6 GM/DL 6.2-8.1 Albumin 3.9 GM/DL 3.2-5.2 Globulin 2.7 GM/DL 2-4 Albumin/Globulin Ratio 1.4 1-3 Bilirubin Total 0.9 mg/dL 0.4-1.5 53 Alkaline Phosphatase 51 U/L 30-110 Alt (SGPT) 27 U/L 14-54 Ast (Sgot) 28 U/L 12-42 eGFR Non- 49.0 > 60 eGFR 63.0 > 60 54 Laboratory test finding 07/30/2012 TSH 2.05 MIU/ML 0.34-5.60 Thyroxine Free 0.76 ng/dL 0.61-1.24 Laboratory test finding 07/30/2012 Hemoglobin A1c 6.2 5-7 Basic Metabolic Panel 03/05/2012 Sodium 140 mmol/L 135-145 55 Potassium 4.1 mmol/L 3.5-5.0 55 Chloride 104 mmol/L 101-111 55 Co2 (Carbon Dioxide) 28.0 mmol/L 22-32 55 Anion Gap 8.0 mmol/L 2-11 55, 56 Glucose 92 mg/dL 70-100 55 BUN 20 mg/dL 6-24 55 Creatinine 1.1 mg/dL 0.50-1.40 55 One Over Creatinine 0.90 55 BUN/Creatinine Ratio 18.2 8-20 55 Calcium 9.5 mg/dL 8.1-9.9 55 eGFR Non- 49.1 > 60 55 eGFR 63.1 > 60 55, 57 CBC No Diff 03/05/2012 White Blood Count 7.6 CUMM 4.8-10.8 55 Red Cell Count 4.41 CUMM 4.2-5.4 55 Hemoglobin 14.1 g/dL 12.0-16.0 55 Hematocrit 41 % 35-47 55 Mean Corpuscular Volume 92 um3 79-97 55 Mean Corpuscular Hemoglob 32 pg High 27-31 55 Mean Corpuscular HGB Cone 35 g/dL 32-36 55 Redcell Distribution WDTH 13 % 10.5-15 55 Platelet Count 202 CUMM 150-450 55 Mean Platelet Volume 8.9 um3 7.4-10.4 55 Urine Microalbumin Random 02/11/2012 Microalbumin (MG/L) 9.0 mg/L Urine Creatinine 164.8 mg/dL Shawn Alb/Creatinine Ratio 5.5 UG/MG Less Than 30 58 Laboratory test finding 10/16/2011 Hemoglobin A1c 6.0 % Less Than 6.0 59 Sensitivities For Urine Culture 09/24/2011 Ampicillin <=2 Amikacin <=2 Ciprofloxacin <=0.25 Ceftriaxone <=1 Cefazolin <=4 Nitrofurantoin <=16 Gentamicin <=1 Imipenem <=1 Levofloxacin <=0.12 Trimeth-Sulfa <=20 Ceftazidime <=1 Tigecycline <=0.5 Urine Culture 09/24/2011 Urine Culture ESCHERICHIA COLI 60 & Sensitivi Sensitivi Laboratory test 07/24/2011 Hemoglobin A1c 6.3 % High Less Than 61 finding 6.0 Comp Metabolic 04/06/2009 Sodium 140 mmol/L 135-145 Panel Potassium 4.6 mmol/L 3.5-5.0 Chloride 105 mmol/L 101-111 Co2 (Carbon Dioxide) 30.0 mmol/L 22-32 Anion Gap 5.0 mmol/L 2-11 62 Glucose 83 mg/dL 70-100 63 BUN 15 mg/dL 6-24 Creatinine 1.10 mg/dL 0.50-1.40 One Over Creatinine 0.90 BUN/Creatinine Ratio 13.6 8-20 Calcium 9.8 mg/dL 8.1-9.9 64 Total Protein 7.0 GM/DL 6.2-8.1 Albumin 3.9 GM/DL 3.2-5.2 Globulin 3.1 GM/DL 2-4 Albumin/Globulin Ratio 1.3 1-3 Bilirubin Total 0.9 mg/dL 0.4-1.5 65 Alkaline Phosphatase 53 U/L 30-110 Alt (SGPT) 30 U/L 14-54 Ast (Sgot) 30 U/L 12-42 Lipid Profile (Trig/Chol/HDL) 04/06/2009 Triglyceride 70 mg/dL 40-200 Cholesterol 133 mg/dL Less Than 200 66 High Density Lipoprotein 42 mg/dL 40-60 67 Cholesterol/HDL Ratio 3.17 AVERAGE 1-4.44 Low Density Lipoprotein 77 mg/dL Less Than 100 68 Laboratory test finding 04/06/2009 Hemoglobin A1c 6.0 % <6.0 69 CBC With Manual Diff 04/06/2009 White Blood Count 7.7 CUMM 4.8-10.8 Red Cell Count 4.46 CUMM 4.2-5.4 Hemoglobin 14.1 g/dL 12.0-16.0 Hematocrit 41 % 35-47 Mean Corpuscular Volume 91 um3 79-97 Mean Corpuscular Hemoglob 32 pg High 27-31 Mean Corpuscular HGB Cone 35 g/dL 32-36 Redcell Distribution WDTH 13 % 10.5-15 Platelet Count 212 CUMM 150-450 Mean Platelet Volume 8.9 um3 7.4-10.4 Polysegmented Neutrophil 69 % 38-83 Band Neutrophil 1 % 0-8 Lymphocyte 17 % Low 25-47 Monocyte 11 % 0-13 Eosenophil 2 % 0-6 Absolute Neutrophil Count 5.3 Polychromasia SLIGHT Laboratory test finding 04/06/2009 Thyroxine Free 0.75 NG/ML 0.61-1.24 70 TSH 1.80 MIU/ML 0.34-5.60 1 Reconciliation Manager: [id number] 2 PAIN IN RIGHT KNEE, UNSPECIFIED FALL, INITIAL ENCO 3 SEE RESULT BELOW Name: GERMANIA MCGILL : [address]: Alejandra Kaur MD Acct: [id number] Unit: [id number] AGE: 77 Location: PAT Re08/29/17 SEX: F Status: REG REF SPEC: [id number] SHAKIR: 08/29/17-[address] [facility] [address]: Alejandra Kaur MD REQ: [id number] RECD: 08/29/17 STATUS: AUGUSTO ZARCO DR: Isidra Salinas MD _ SOURCE: URINE SPDESC: ORDERED: Urine Culture QUERIES: Urine Source: Random Procedure Result Reported Site Urine Culture Final 08/30/17- 0843 ML No Growth (<1,000 CFU/mL) * ML - [facility]) . END OF REPORT * ML=Testing performed at Main Lab DEPARTMENT OF PATHOLOGY, [address] [place] [address] Chris Andrade M.D. Director [facility] # [id number] 4 Because ethnic data is not always readily available, this report includes an eGFR for both -Americans and non- Americans. The National Kidney Disease Education Program (NKDEP) does not endorse the use of the MDRD equation for patients that are not between the ages of 18 and 70, are , have extremes of body size, muscle mass, or nutritional status, or are non- or non-. According to the National Kidney Foundation, irrespective of diagnosis, the stage of the disease is based on the level of kidney function: Stage Description GFR(mL/min/1.73 m(2)) 1 Kidney damage with normal or decreased GFR 90 2 Kidney damage with mild decrease in GFR 60-89 3 Moderate decrease in GFR 30-59 4 Severe decrease in GFR 15-29 5 Kidney failure <15 (or dialysis) 5 Because ethnic data is not always readily available, this report includes an eGFR for both -Americans and non- Americans. The National Kidney Disease Education Program (NKDEP) does not endorse the use of the MDRD equation for patients that are not between the ages of 18 and 70, are , have extremes of body size, muscle mass, or nutritional status, or are non- or non-. According to the National Kidney Foundation, irrespective of diagnosis, the stage of the disease is based on the level of kidney function: Stage Description GFR(mL/min/1.73 m(2)) 1 Kidney damage with normal or decreased GFR 90 2 Kidney damage with mild decrease in GFR 60-89 3 Moderate decrease in GFR 30-59 4 Severe decrease in GFR 15-29 5 Kidney failure <15 (or dialysis) 6 Because ethnic data is not always readily available, this report includes an eGFR for both -Americans and non- Americans. The National Kidney Disease Education Program (NKDEP) does not endorse the use of the MDRD equation for patients that are not between the ages of 18 and 70, are , have extremes of body size, muscle mass, or nutritional status, or are non- or non-. According to the National Kidney Foundation, irrespective of diagnosis, the stage of the disease is based on the level of kidney function: Stage Description GFR(mL/min/1.73 m(2)) 1 Kidney damage with normal or decreased GFR 90 2 Kidney damage with mild decrease in GFR 60-89 3 Moderate decrease in GFR 30-59 4 Severe decrease in GFR 15-29 5 Kidney failure <15 (or dialysis) 7 Reconciliation Manager: [id number] 8 >100 to <200 pg/mL: likely compensated congestive heart failure (CHF) 200 to 400 pg/mL: likely moderate CHF >400 pg/mL: likely moderate to severe CHF 9 Because ethnic data is not always readily available, this report includes an eGFR for both -Americans and non- Americans. The National Kidney Disease Education Program (NKDEP) does not endorse the use of the MDRD equation for patients that are not between the ages of 18 and 70, are , have extremes of body size, muscle mass, or nutritional status, or are non- or non-. According to the National Kidney Foundation, irrespective of diagnosis, the stage of the disease is based on the level of kidney function: Stage Description GFR(mL/min/1.73 m(2)) 1 Kidney damage with normal or decreased GFR 90 2 Kidney damage with mild decrease in GFR 60-89 3 Moderate decrease in GFR 30-59 4 Severe decrease in GFR 15-29 5 Kidney failure <15 (or dialysis) 10 Acute inflammation: >10.00 11 [place] Severe Sepsis and Septic Shock Management Bundle Measure requires all lactic acids initially measuring >2.0 mmol/L be repeated. 12 Because ethnic data is not always readily available, this report includes an eGFR for both -Americans and non- Americans. The National Kidney Disease Education Program (NKDEP) does not endorse the use of the MDRD equation for patients that are not between the ages of 18 and 70, are , have extremes of body size, muscle mass, or nutritional status, or are non- or non-. According to the National Kidney Foundation, irrespective of diagnosis, the stage of the disease is based on the level of kidney function: Stage Description GFR(mL/min/1.73 m(2)) 1 Kidney damage with normal or decreased GFR 90 2 Kidney damage with mild decrease in GFR 60-89 3 Moderate decrease in GFR 30-59 4 Severe decrease in GFR 15-29 5 Kidney failure <15 (or dialysis) 13 SEE RESULT BELOW Name: GERMANIA MCGILL : [address]: Alejandra Kaur MD Acct: [id number] Unit: [id number] AGE: 77 Location: [facility] Re07/24/17 SEX: F Status: REG REF SPEC: [id number] SHAKIR: 07/24/17-[address]: Alejandra Kaur MD REQ: [id number] RECD: 07/24/17 STATUS: AUGUSTO ZARCO DR: Isidra Salinas MD _ SOURCE: URINE SPDESC: ORDERED: Urine Culture QUERIES: Urine Source: Clean Catch Procedure Result Reported Site Urine Culture Final 07/26/17- 1002 ML No Growth (<1,000 CFU/mL) * ML - [facility] ([facility]) . END OF REPORT * ML=Testing performed at Main Lab DEPARTMENT OF PATHOLOGY, [address] [place] [address] Chris Andrade M.D. Director [facility] # [id number] 14 Because ethnic data is not always readily available, this report includes an eGFR for both -Americans and non- Americans. The National Kidney Disease Education Program (NKDEP) does not endorse the use of the MDRD equation for patients that are not between the ages of 18 and 70, are , have extremes of body size, muscle mass, or nutritional status, or are non- or non-. According to the National Kidney Foundation, irrespective of diagnosis, the stage of the disease is based on the level of kidney function: Stage Description GFR(mL/min/1.73 m(2)) 1 Kidney damage with normal or decreased GFR 90 2 Kidney damage with mild decrease in GFR 60-89 3 Moderate decrease in GFR 30-59 4 Severe decrease in GFR 15-29 5 Kidney failure <15 (or dialysis) 15 Therapeutic target for the treatment of diabetes Mellitus patients is <7% HBA1C, and in selective patients <6.0%.Please refer to [place] [employer] Diabetic care guidelines for further information. 16 Desirable <150 Borderline high 150-199 High 200-499 Very High >500 17 Desirable <200 Borderline high 200-239 High >239 18 Low <40 Desirable: 40-60 High: >60 19 Desirable: <100 mg/dL Near Optimal: 100-129 mg/dL Borderline High: 130-159 mg/dL High: 160-189 mg/dL Very High: >189 mg/dL 20 FASTING 12 HOUR 21 Therapeutic target for the treatment of diabetes Mellitus patients is <7% HBA1C, and in selective patients <6.0%.Please refer to [place] [employer] Diabetic care guidelines for further information. 22 FASTING 12 HOUR 23 Because ethnic data is not always readily available, this report includes an eGFR for both -Americans and non- Americans. The National Kidney Disease Education Program (NKDEP) does not endorse the use of the MDRD equation for patients that are not between the ages of 18 and 70, are , have extremes of body size, muscle mass, or nutritional status, or are non- or non-. According to the National Kidney Foundation, irrespective of diagnosis, the stage of the disease is based on the level of kidney function: Stage Description GFR(mL/min/1.73 m(2)) 1 Kidney damage with normal or decreased GFR 90 2 Kidney damage with mild decrease in GFR 60-89 3 Moderate decrease in GFR 30-59 4 Severe decrease in GFR 15-29 5 Kidney failure <15 (or dialysis) 24 Because ethnic data is not always readily available, this report includes an eGFR for both -Americans and non- Americans. The National Kidney Disease Education Program (NKDEP) does not endorse the use of the MDRD equation for patients that are not between the ages of 18 and 70, are , have extremes of body size, muscle mass, or nutritional status, or are non- or non-. According to the National Kidney Foundation, irrespective of diagnosis, the stage of the disease is based on the level of kidney function: Stage Description GFR(mL/min/1.73 m(2)) 1 Kidney damage with normal or decreased GFR 90 2 Kidney damage with mild decrease in GFR 60-89 3 Moderate decrease in GFR 30-59 4 Severe decrease in GFR 15-29 5 Kidney failure <15 (or dialysis) 25 Reconciliation Manager: [id number] LANDRY [id number] 26 Because ethnic data is not always readily available, this report includes an eGFR for both -Americans and non- Americans. The National Kidney Disease Education Program (NKDEP) does not endorse the use of the MDRD equation for patients that are not between the ages of 18 and 70, are , have extremes of body size, muscle mass, or nutritional status, or are non- or non-. According to the National Kidney Foundation, irrespective of diagnosis, the stage of the disease is based on the level of kidney function: Stage Description GFR(mL/min/1.73 m(2)) 1 Kidney damage with normal or decreased GFR 90 2 Kidney damage with mild decrease in GFR 60-89 3 Moderate decrease in GFR 30-59 4 Severe decrease in GFR 15-29 5 Kidney failure <15 (or dialysis) 27 Reconciliation Manager: [id number] BRI GARNICA 28 SEE RESULT BELOW Name: GERMANIA MCGILL : [address]: Isidra Salinas MD Acct: [id number] Unit: [id number] AGE: 74 Location: [facility] Re05/25/15 SEX: F Status: REG REF SPEC: [id number] SHAKIR: 05/25/15-[address] [facility] [address]: Isidra Salinas MD REQ: [id number] RECD: 05/25/15 STATUS: COMP _ SOURCE: VAGINAL SPDESC: ORDERED: Erika,Yeast DNA, Trich DNA Procedure Result Verified Site Gardnerella/Yeast: Vaginal DNA Final 05/26/15- 1042 ML Organism 1 Negative Mercedes Organism 2 Negative Gardnerella The presence of G. vaginalis, although suggestive, is not diagnostic for bacterial vaginosis. Results should be interpreted in conjuction with other clinical and laboratory data available. Women with vaginal discharge should be evaluated for risk factors of cervicitis and pelvic inflammatory disease, toxic shock syndrome (S.aureus), and if present, evaluated for organisms not included in this assay such as N. gonorrhoeae, C. trachomatis, Mobiluncus, Mycoplasma and/or Prevotella. Mixed infections may occur. The performance of this test on patient specimens collected during or immediately after antimicrobial therapy is unknown. The presence or absence of Mercedes species, or G. vaginalis cannot be used as a test for therapeutic success or failure. Trichomonas: Vaginal DNA Probe Final 05/26/15- 1042 ML Organism 1 Negative Trichomonas CONTINUED ON NEXT PAGE * ML=Testing performed at [facility] DEPARTMENT OF PATHOLOGY, [address] [place] [address] Chris Andrade M.D. Director [facility] # [id number] Patient: NANOGERMANIA Souza [id number] (Continued) Specimen: [id number] Collected: 05/25/15-6 Received: 05/25/15-163 (Continued) Procedure Result Verified Site Trichomonas: Vaginal DNA Probe Final (continued) 05/26/15- 1041 The presence or absence of T. vaginalis cannot be used as a test for therapeutic success or failure. * ML - MAIN LAB ([facility]) . END OF REPORT * ML=Testing performed at Main Lab DEPARTMENT OF PATHOLOGY, [address] [place] [address] Chris Andrade M.D. Director [facility] # [id number] 29 Desirable <150 Borderline high 150-199 High 200-499 Very High >500 30 Desirable <200 Borderline high 200-239 High >239 31 Low <40 Desirable: 40-60 High: >60 32 Desirable: <100 mg/dL Near Optimal: 100-129 mg/dL Borderline High: 130-159 mg/dL High: 160-189 mg/dL Very High: >189 mg/dL 33 Therapeutic target for the treatment of diabetes Mellitus patients is <7% HBA1C, and in selective patients <6.0%.Please refer to [place] [employer] Association Diabetic care guidelines for further information. 34 Because ethnic data is not always readily available, this report includes an eGFR for both -Americans and non- Americans. The National Kidney Disease Education Program (NKDEP) does not endorse the use of the MDRD equation for patients that are not between the ages of 18 and 70, are , have extremes of body size, muscle mass, or nutritional status, or are non- or non-. According to the National Kidney Foundation, irrespective of diagnosis, the stage of the disease is based on the level of kidney function: Stage Description GFR(mL/min/1.73 m(2)) 1 Kidney damage with normal or decreased GFR 90 2 Kidney damage with mild decrease in GFR 60-89 3 Moderate decrease in GFR 30-59 4 Severe decrease in GFR 15-29 5 Kidney failure <15 (or dialysis) 35 Therapeutic target for the treatment of diabetes Mellitus patients is <7% HBA1C, and in selective patients <6.0%.Please refer to [place] Diabetes Association Diabetic care guidelines for further information. 36 The following Other High Risk HPV types were not detected: 31, 33, 35, 39, 45, 51, 52, 56, 58, 59, 66, and 68 Test Performed by: [place] [address] Guest Service Supervisor: Efraín Lewis III, M.D. 37 RUN DATE: 01/06/14 [facility] LAB LIVE PAGE 1 RUN TIME: [address] [place] [address] Specimen Inquiry Name: GERMANIA MCGILL Harley : [address]: Chacha Calderon MD Acct: [id number] Unit: [id number] AGE: 73 Location: [facility] Re01/05/14 SEX: F Status: REG REF SPEC: [id number] SHAKIR: 01/05/14-[address] [facility] [address]: Chacha Calderon MD REQ: [id number] RECD: 01/05/14-8944 STATUS: SOUT _ ORDERED: IMAGE ANALYSIS, HPV/Thin Prep FINAL DIAGNOSIS Negative for Intraepithelial lesion or Malignancy COMMENTS: Specimen sent to [facility] in [place], [place] on 01/06/14 by [id number] at 1416. Results will be reported separately. A. Ectocervical/Endocervical Specimen Adequacy: Satisfactory of evaluation Transformation zone component cannot be definitely identified due to presence of atrophy or other hormonal changes Patient Information: HPV: High risk HPV DNA testing regardless of pap results. Actual Specimen Date: 01/05/14 LMP If Unknown: age 51 Post Menopausal?: Y Hysterectomy?: N Previous Abnormal Pap Smears?:Y If Yes, enter Diagnosis: HPV many yrs ago. Signed (signature on file) MARION Shabazz (ASCP) 01/06 0655 This Pap test was evaluated with the assistance of the ThinPrep Test Imaging System. Due to cytologic findings at the demonstrator sewing techniques microscope, comprehensive manual rescreening by a Principal Trainer may be required. The Pap Smear is a screening test designed to aid in the detection of premalignant and malignant conditions of the uterine cervix. It is not a diagnostic procedure and should not be used as the sole means of detecting cervical cancer. Both false- positive and false- negative reports do occur. Depending on your risk status, a Pap smear shoudl be obtained and evaluated every 1-3 years. END OF REPORT * ML=Testing performed at Main Lab DEPARTMENT OF PATHOLOGY, [address] [place] [address] Chris Andrade M.D. Director [facility] Permit #[id number] 38 PT IS FASTING 39 HDL Interpretation: Undesirable: High Risk: Less than 40 mg/dL Desirable: Low Risk: Greater than 60 mg/dL 40 LDL Interpretation: Low Risk Optimal Level: LDL Less than 100 mg/dL Near or Above Optimal: LDL 100-129 mg/dL Borderline High Risk: LDL 130-159 mg/dL High Risk: LDL 160-189 mg/dL Very High Risk: LDL Greater than 189 mg/dL 41 Microalbuminuria in a random sample is defined as: Microalbumin/Creatinine ratio of 30-299 ug/mg. 42 HDL Interpretation: Undesirable: High Risk: Less than 40 MG/DL Desirable: Low Risk: Greater than 60 MG/DL 43 LDL Interpretation: Low Risk Optimal Level: LDL Less than 100 MG/DL Near or Above Optimal: LDL 100-129 MG/DL Borderline High Risk: LDL 130-159 MG/DL High Risk: LDL 160-189 MG/DL Very High Risk: LDL Greater than 189 MG/DL 44 FASTING 12 HOUR do soon 45 FASTING 12 HOUR do soon 46 Because ethnic data is not always readily available, this report includes an eGFR for both -Americans and non- Americans. The National Kidney Disease Education Program (NKDEP) does not endorse the use of the MDRD equation for patients that are not between the ages of 18 and 70, are , have extremes of body size, muscle mass, or nutritional status, or are non- or non-. According to the National Kidney Foundation, irrespective of diagnosis, the stage of the disease is based on the level of kidney function: Stage Description GFR(mL/min/1.73 m(2)) 1 Kidney damage with normal or decreased GFR 90 2 Kidney damage with mild decrease in GFR 60-89 3 Moderate decrease in GFR 30-59 4 Severe decrease in GFR 15-29 5 Kidney failure <15 (or dialysis) 47 Microalbuminuria in a random sample is defined as: Microalbumin/Creatinine ratio of 30-299 ug/mg. 48 RUN DATE: 12/31/12 [facility] LAB LIVE PAGE 1 RUN TIME: [address], [place] [address] Specimen Inquiry Name: GERMANIA MCGILL : [address]: Chacha Calderon MD Acct: [id number] Unit: [id number] AGE: 72 Location: [facility] Re12/30/12 SEX: F Status: REG REF SPEC: [id number] SHAKIR: 12/30/12-[address] [facility] [address]: Chacha Calderon MD REQ: [id number] RECD: 12/31/12 STATUS: SOUT _ ORDERED: IMAGE ANALYSIS FINAL DIAGNOSIS Negative for Intraepithelial lesion or Malignancy A. Ectocervical/Endocervical Specimen Adequacy: Satisfactory of evaluation Transformation zone component cannot be definitely identified due to presence of atrophy or other hormonal changes Patient Information: HPV: Thin Layer Pap Test w/reflex to high risk HPV DNA testing when ASCUS Actual Specimen Date: 12/30/12 LMP If Unknown: 1988 Spec Date if unknown: 01/2011 Cautery: N IUD: N Lesion, grossly demonstrate: N ?: N Post Menopausal?: Y Hysterectomy?: N Previous Abnormal Pap Smears?:N Signed (signature on file) MARION Rodriguez (ASCP) 12/31/12 1548 This Pap test was evaluated with the assistance of the MirDenegPrep Test Imaging System. Due to cytologic findings at the demonstrator sewing techniques microscope, comprehensive manual rescreening by a Principal Trainer may be required. The Pap Smear is a screening test designed to aid in the detection of premalignant and malignant conditions of the uterine cervix. It is not a diagnostic procedure and should not be used as the sole means of detecting cervical cancer. Both false- positive and false- negative reports do occur. Depending on your risk status, a Pap smear shoudl be obtained and evaluated every 1-3 years. END OF REPORT * ML=Testing performed at Main Lab DEPARTMENT OF PATHOLOGY, [address] [place] [address] Chris Andrade M.D. Director [facility] Permit #[id number] 49 CHOLESTEROL INTERPRETATION: Desirable: Less than 200 MG/DL Borderline-High Risk: 200-239 MG/DL High-Risk: 240 MG/DL and over 50 HDL INTERPRETATION: Undesirable: High Risk: Less than 40 MG/DL Desirable: Low Risk: Greater than 60 MG/DL 51 LDL INTERPRETATION: Low Risk Optimal Level: LDL Less than 100 MG/DL Near or Above Optimal: LDL 100-129 MG/DL Borderline High Risk: LDL 130-159 MG/DL High Risk: LDL 160-189 MG/DL Very High Risk: LDL Greater than 189 MG/DL 52 Anion gap measurement may be of limited value in the presence of any alkalosis, especially in a combined acid base disorder. . 53 A metabolite of Naproxen, O-desmethylnaproxen, has been shown to interfere with the Jendrassik-Angela method for measuring total bilirubin. Samples from patients who have taken Naproxen have shown spurious elevation in total bilirubin levels. 54 Because ethnic data is not always readily available, this report includes an eGFR for both -Americans and non- Americans. The National Kidney Disease Education Program (NKDEP) does not endorse the use of the MDRD equation for patients that are not between the ages of 18 and 70, are , have extremes of body size, muscle mass, or nutritional status, or are non- or non-. According to the National Kidney Foundation, irrespective of diagnosis, the stage of the disease is based on the level of kidney function: Stage Description GFR(mL/min/1.73 m(2)) 1 Kidney damage with normal or decreased GFR 90 2 Kidney damage with mild decrease in GFR 60-89 3 Moderate decrease in GFR 30-59 4 Severe decrease in GFR 15-29 5 Kidney failure <15 (or dialysis) 55 SDS 03/12 56 Anion gap measurement may be of limited value in the presence of any alkalosis, especially in a combined acid base disorder. . 57 Because ethnic data is not always readily available, this report includes an eGFR for both -Americans and non- Americans. The National Kidney Disease Education Program (NKDEP) does not endorse the use of the MDRD equation for patients that are not between the ages of 18 and 70, are , have extremes of body size, muscle mass, or nutritional status, or are non- or non-. According to the National Kidney Foundation, irrespective of diagnosis, the stage of the disease is based on the level of kidney function: Stage Description GFR(mL/min/1.73 m(2)) 1 Kidney damage with normal or decreased GFR 90 2 Kidney damage with mild decrease in GFR 60-89 3 Moderate decrease in GFR 30-59 4 Severe decrease in GFR 15-29 5 Kidney failure <15 (or dialysis) 58 MICROALBUMINURIA IN A RANDOM SAMPLE IS DEFINED : MICROALBUMIN/CREATININE RATIO OF 30-299 ug/mg. . 59 THERAPEUTIC TARGET FOR THE TREATMENT OF DIABETES MELLITUS PATIENTS IS <7% HBA1C, AND IN SELECTIVE PATIENTS <6.0%. PLEASE REFER TO [place] [employer]OC[employer]ATION DIABETIC CARE GUIDELINES FOR FURTHER INFORMATION. 60 >100^>100,000 ORGANISMS/ML (MANY)^CCU 61 THERAPEUTIC TARGET FOR THE TREATMENT OF DIABETES MELLITUS PATIENTS IS <7% HBA1C, AND IN SELECTIVE PATIENTS <6.0%. PLEASE REFER TO [place] [employer] DIABETIC CARE GUIDELINES FOR FURTHER INFORMATION. 62 Anion gap measurement may be of limited value in the presence of any alkalosis, especially in a combined acid base disorder. . 63 Note change in reference range as of 07/08/08. The change was based on recommendations from the [place] Diabetes Association. 64 Please note change in reference range effective 08 . 65 A metabolite of Naproxen, O-desmethylnaproxen, has been shown to interfere with the Jendrassik-Angela method for measuring total bilirubin. Samples from patients who have taken Naproxen have shown spurious elevation in total bilirubin levels. 66 CHOLESTEROL INTERPRETATION: Desirable: Less than 200 MG/DL Borderline-High Risk: 200-239 MG/DL High-Risk: 240 MG/DL and over 67 HDL INTERPRETATION: Undesirable: High Risk: Less than 40 MG/DL Desirable: Low Risk: Greater than 60 MG/DL 68 LDL INTERPRETATION: Low Risk Optimal Level: LDL Less than 100 MG/DL Near or Above Optimal: LDL 100-129 MG/DL Borderline High Risk: LDL 130-159 MG/DL High Risk: LDL 160-189 MG/DL Very High Risk: LDL Greater than 189 MG/DL 69 THERAPEUTIC TARGET FOR THE TREATMENT OF DIABETES MELLITUS PATIENTS IS <7% HBA1C, AND IN SELECTIVE PATIENTS <6.0%. PLEASE REFER TO [place] [employer]OC[employer]ATION DIABETIC CARE GUIDELINES FOR FURTHER INFORMATION. 70 PLEASE NOTE NEW REFERENCE RANGES. Procedures Date CPT Code Description Status Comment 09/03/2017 12493 Suture Of Quadriceps Or Completed Hamstring Muscle Repair;Primary 09/03/2017 17494 Suture Of Quadriceps Or Completed Hamstring Muscle Repair;Primary 07/30/2017 51569 TKR Total Knee Replacement Completed 07/30/2017 68462 TKR Total Knee Replacement Completed 07/30/2017 91975 TKR Total Knee Replacement Completed 07/29/2017 95821 EKG Tracing & Interpretation Completed 07/25/2017 80534 Stress Test Completed 07/25/2017 74507 Myocardial Perfusion Imaging Completed Tomographic (Spect) Multiple Studies 07/24/2017 51472 Inject/Drain Joint/Bursa Major Completed 07/17/2017 67016 ECHO Transthoracic, Real-Time 2D Completed With Doppler And Color Flow 07/16/2017 05674 Holter Monitor Review (24 hr) Completed review & interp only 07/15/2017 52414 ECG Monitor/Recording W/Visual Completed Superimposition Scanning 07/10/2017 43194 EKG Tracing & Interpretation Completed 03/04/2017 Mammogram Completed 03/01/2017 42146 Inject/Drain Joint/Bursa Major Completed 02/18/2017 10003 Inject/Drain Joint/Bursa Major Completed 03/19/2016 87040 EKG Tracing & Interpretation Completed 03/02/2016 Mammogram Completed 05/16/2015 Diabetic Retinal Eye Exam Completed 12/10/2014 Diabetic Retinal Eye Exam Completed 12/02/2014 Bone Mineral Density Test Completed 03/18/2014 Colonoscopy Completed nl, repeat in 7 yrs 201902/04/2014 Mammogram Completed 01/05/2014 40462 EKG Tracing & Interpretation Completed 08/25/2013 Colonoscopy Completed 02/05/2013 27798 ECHO Transthoracic, Real-Time 2D Completed With Doppler And Color Flow 02/03/2013 69685 Carotid Doppler,Bilateral Completed 01/30/2013 00478 Myocardial Perfusion Imaging Completed Tomographic (Spect) Multiple Studies 01/30/2013 89095 Stress Test Completed 01/28/2013 Mammogram Completed 01/16/2013 77035 EKG Tracing & Interpretation Completed 12/30/2012 73521 EKG Tracing & Interpretation Completed 10/01/2012 Diabetic Retinal Eye Exam Completed 02/11/2012 90470 EKG Tracing & Interpretation Completed 02/08/2011 Mammogram Completed 02/06/2011 10652 EKG Tracing & Interpretation Completed 04/05/2009 98377 EKG Tracing & Interpretation Completed 03/18/2009 Mammogram Completed 04/02/2008 Mammogram Completed 03/30/2008 99085 EKG Tracing & Interpretation Completed 03/30/2008 17685 EKG Tracing & Interpretation Completed 07/04/2007 Colonoscopy Completed 04/03/2007 Diabetic Foot Exam Completed 01/22/2007 Bone Mineral Density Test Completed 12/30/2006 87832 EKG Tracing & Interpretation Completed 12/30/2006 83985 EKG Tracing & Interpretation Completed Encounters Type Date Location Provider CPT E/M Dx Office Visit 12/11/2017 1:00p [facility] Isidra Salinas M.D. 59714 D50.9 - [place] I10 Office Visit 10/16/2017 9:40a [facility] - Isidra Salinas M.D. 94354 I10 [place] D50.9 Office Visit 09/23/2017 9:00a [facility] - Nurse Visit C 15649 I10 [place] Office Visit 09/17/2017 8:35a [facility] - Nurse Visit C 20608 I10 [place] Office Visit 09/10/2017 2:00p [facility] - Isidra Salinas M.D. 85604 I10 [place] S76.101D Z23 D50.9 Office Visit 09/04/2017 6:32a [facility], Renetta Hernándezr, 20036 R73.03 Hospitalists Caitlin G47.33 I10 S76.111A Office Visit 08/26/2017 10:30a [facility] Martinez M.D. 94836 S76.111A C.M.A. Z96.651 Office Visit 07/29/2017 10:00a [facility] Eliseo Manning, 79972 I10 Caitlin I49.3 I49.1 I34.0 I36.1 E66.9 I71.9 Z01.810 G47.33 M17.11 Office Visit 07/24/2017 2:30p [facility] Nurse Visit C 92665 I10 - [place] Office Visit 07/15/2017 11:10a [facility] Isidra Salinas, 25805 Z01.818 - Anton Tucker M17.11 I10 E78.4 E79.0 E03.9 G47.33 R13.12 Z23 R06.02 R73.01 F32.89 N39.41 Office Visit 07/10/2017 2:20p [facility] Eliseo Manning, 00982 R06.02 Caitlin R00.1 I10 E78.4 E66.9 R94.31 Office Visit 03/19/2017 8:50a [facility] Isidra Salinas M.D. 15884 E79.0 - [place] M17.0 I10 Office Visit 03/01/2017 2:00p [facility] Alejandra Kaur M.D. 47512 M17.0 C.M.A. M25.562 M25.462 Office Visit 02/18/2017 9:00a [facility] Kaur M.D. 72657 M25.561 C.M.A. M25.562 M17.0 M25.461 M25.462 M17.11 Office Visit 02/07/2017 9:50a [facility] Isidra Salinas 24019 R73.01 - Anton Tucker E79.0 M25.561 I10 Z12.39 E55.9 Office Visit 09/19/2016 10:10a [facility] Isidra Salinas 28091 R73.01 - Anton Tucker E55.9 I10 E03.9 E66.9 Z23 Office Visit 09/13/2016 9:00a [facility] Callum Dobbins 92949 M72.2 Blair Tucker Office Visit 08/23/2016 9:00a [facility], 93683 M72.2 Blair Tucker Office Visit 08/01/2016 8:30a [facility] - Isidra Salinas 10110 M72.2 Anton Tucker M10.00 Office Visit 03/19/2016 8:30a [facility] - Isidra Salinas M.D. 87619 I10 Charu M10.00 Office Visit 02/27/2016 8:30a [facility] Isidra Salinas 49123 Z00.00 - Charu Tucker M10.072 I10 R30.0 Z12.31 Office Visit 02/10/2016 1:00p [facility] [place] [address] Z01.818 Charu H26.9 R73.01 I10 M10.071 Office Visit 02/06/2016 12:10p [facility] Isidra Salinas 92769 M10.072 - Charu Tucker Office Visit 11/28/2015 9:50a [facility] Isidra Salinas 71967 M25.551 - Charu Tucker R73.01 E66.9 I10 F32.8 Z23 E03.9 M79.641 Office Visit 05/25/2015 9:10a [facility] Isidra Salinas 36662 V72.84 - Charu Tucker 366.10 790.21 401.1 272.0 623.5 789.09 715.16 V03.82 780.57 733.90 268.9 238.2 788.31 Office Visit 11/29/2014 11:10a [facility] Isidra Salinas, 37673 250.00 - [place] M.DMohsen 244.9 401.1 733.90 Office Visit 01/05/2014 9:20a [facility] - Chacha Calderon M.D., 41199 V70.0 [place] FACP V76.10 250.00 272.0 244.9 401.1 780.57 V72.31 278.02 Office Visit 09/21/2013 12:00p [facility] Chacha Calderon M.D., 23089 250.00 - [place] FACP v04.81 Office Visit 02/11/2013 11:30a [facility] 31827 786.09 [facility] Caitlin Office Visit 01/16/2013 2:00p [facility], 76323 786.05 [facility] Caitlin 250.00 785.9 Office Visit 12/30/2012 9:00a [facility] - Chacha Calderon M.D., 02715 V70.0 [place] FACP V72.31 V76.10 250.00 272.0 244.9 401.1 786.09 V06.1 Office Visit 07/30/2012 9:00a [facility] Chacha Calderon M.D., 29144 250.00 - [place] FACP 272.0 244.9 V04.81 Office Visit 02/11/2012 9:00a [facility] Chacha Calderon M.D., 51948 V72.84 - [place] FACP 750.4 250.00 401.1 Office Visit 01/29/2012 2:20p [facility] Chacha Calderon M.D., 89783 250.00 - [place] FACP 750.27 Office Visit 12/24/2011 11:00a [facility] Chacha Calderon M.D., 89904 807.00 - [place] FACP Office Visit 10/17/2011 1:00p DO Not Use Chacha Calderon M.D., 04775 250.00 [facility] FACP 750.27 719.46 719.45 Office Visit 09/24/2011 4:40p DO Not Use Alina Burger, 30979 599.0 [facility] N.P. Office Visit 07/30/2011 9:00a DO Not Use Chacha Calderon M.D., 04440 250.00 [facility] FACP 728.71 v04.81 Office Visit 03/27/2011 11:20a DO Not Use [facility] Chacha Calderon, 57103 250.00 M.D., FACP 719.46 Office Visit 12/20/2009 1:00p DO Not Use [facility] Chacha Calderon, 88609 723.1 M.D., FACP 277.7 Office Visit 10/06/2009 9:00a DO Not Use [facility] Chacha Calderon, 74076 277.9 M.D., FACP V04.81 Office Visit 05/11/2009 10:30a DO Not Use [facility] Chacha Calderon, 71782 277.7 M.D., FACP Office Visit 04/05/2009 1:45p DO Not Use [facility] Chacha Calderon, 72744 V70.0 M.D., FACP 272.0 401.1 244.9 Office Visit 03/07/2009 10:30a DO Not Use [facility] Alina Burger, 03837 461.9 N.P. Office Visit 03/30/2008 11:45a DO Not Use [facility] Chacha Calderon M.D., 35867 V70.0 FACP 277.7 692.79 401.1 Office Visit 04/02/2007 3:15p DO Not Use [facility] Alina Burger, N.P. 24877 684 692.9 Office Visit 03/24/2007 9:15a DO Not Use [facility] Chacha Calderon, 93536 462 M.D., FACP Office Visit 12/30/2006 11:15a DO Not Use [facility] Chacha Yumiko, 08370 V70.0 M.D., FACP V03.82 V05.8 Office Visit 07/26/2006 9:00a DO Not Use [facility] Chacha Calderon, 23560 530.6 M.D., FACP 780.57 277.7 Plan of Care Future Appointment(s):08/05/2018 9:50 am - Isidra Salinas M.D. at [facility] - [id number]/08/2018 11:00 am - Eliseo Manning M.D. at [facility]01/02/2018 - Isidra Salinas M.D.Z00.00 Encntr for general adult medical exam w/o abnormal findingsComments:~B_GENERAL PHYSICAL EXAM:~b_~b_ You are up to date with your vaccinations. You received a pneumonia booster today No need for ammograms after age 75 Your last colonoscopy was in 2014A follow up colonoscopy is due in 2020~B_we discussed daily use of sun block at least SPF 50 or higher to protect agaianst skin cancers ~b_We reviewed healthy lifestyle practices, specifically, strategies to maintain a durable ideal body weight and an aerobic exercise routine.Z23 Encounter for cjddoguuvjlbC80.9 Acute upper respiratory infection, iqkbegqonvdP66.89 Oth disrd of bone density and structure, multiple sitesNew Xrays:Dexa Screen Axial Skeleton Lumbar (Hips) Comments:repeat bone density needed to follow up on weak mkbvjC79.0 Actinic keratosisReferral:Ramon Bowman MD, Dermatology
[2018-01-12] MEDS ORDERED: Ondansetron INJ* 2 MG/ML VIAL IV ONE (08:04)
[2018-01-12] MEDS ORDERED: NS 0.9% 1000 ML* 1,000 ML IV ONE ×2 (08:04→12:51)
[2018-01-12] MEDS ORDERED: Morphine INJ* 4 MG/ML 1 ML CARPUJECT IV ONE (08:18)
[2018-01-12] MEDS ORDERED: Morphine INJ* 4 MG/ML 1 ML SYRINGE (NEW SYRINGE VERSION) ONE (08:21)
[2018-01-12 08:30] LABS: ABS Basophils 0.1 10^3/ul (0-0.2); ABS Eosinophils 0 10^3/ul (0-0.6); ABS Lymphocytes 1.2 10^3/ul (1.0-4.8); ABS Monocytes 0.9 10^3/ul (0-0.8); ABS Neutrophils 11.4 10^3/ul (1.5-7.7); ABS Nucleated RBC 0 10^3/ul; Eosinophil % 0.3 % (0-6); Hematocrit 40 % (35-47); Hemoglobin 13.2 g/dl (12.0-16.0); Lymphocyte % 8.7 % (25-47); Mean Corpuscular HGB Conc 34 g/dl (31-36); Mean Corpuscular Hemoglobin 29 pg (27-31); Mean Corpuscular Volume 88 fL (80-97); Mean Platelet Volume 8 um3 (7.4-10.4); Nucleated Red Blood Cells % 0; Platelet Count 221 10^3/ul (150-450); Red Cell Distribution Width 14 % (10.5-15); White Blood Count 13.6 10^3/ul (3.5-10.8)
[2018-01-12 08:41] LABS: EGFR Non-African American 45.9 (>60)
[2018-01-12 09:28] LABS: Urine Appearance Clear; Urine Blood Negative (Negative); Urine Color Yellow; Urine Ketones Trace (Negative); Urine Protein Negative (Negative); Urine Specific Gravity 1.012 (1.010-1.030); Urine Urobilinogen Negative (Negative)
--- NOTE | 2018-01-12 13:26 | ED ---
Yaakov Vasquez Thomas, scribed for Matt Luevano MD on 01/12/18 at 0808 . Abdominal Pain/Female - HPI Summary HPI Summary: The patient is a 77 year old female complaining of nausea, vomiting, and diarrhea that began at 00:30. The patient additionally complains of bloody stool that began at 02:30. The patient notes that she last ate at 19:00 the day prior at a dinner green party. The patient had a tooth extraction 3 days prior. - History of Current Complaint Chief Complaint: EDAbdPain Stated Complaint: BLOODY STOOL Time Seen by Provider: 01/12/18 07:45 Hx Obtained From: Patient Onset/Duration: Lasting Hours, Still Present Pain Intensity: 8 Pain Scale Used: 0-10 Numeric Associated Signs and Symptoms: Positive: Blood in Stool, Nausea, Vomiting, Diarrhea Allergies/Adverse Reactions: Allergies Allergy/AdvReac Type Severity Reaction Status Date / Time codeine Allergy Edema Verified 01/12/18 07:41 Quinolones Allergy See Comment Verified 01/12/18 08:03 Sulfa (Sulfonamide Allergy Rash Verified 01/12/18 07:41 Antibiotics) tramadol Allergy Itching Verified 01/12/18 07:41 Home Medications: Home Medications Aspirin TAB* [Aspirin 325 MG TAB*] 325 mg PO DAILY 01/12/18 [History Confirmed 01/12/18] Multivit-Min/Iron/Folic/Lutein [Centrum Silver Women Tablet] 1 each PO QAM 01/12 [History Confirmed 01/12/18] Tolterodine (NF) [Detrol (NF)] 2 mg PO BID 01/12/18 [History Confirmed 01/12/18] Valsartan TAB* [Diovan TAB*] 320 mg PO DAILY 01/12/18 [History Confirmed ] amLODIPine TAB* [Norvasc 5 mg TAB*] 5 mg PO DAILY 01/12/18 [History Confirmed ] PMH/Surg Hx/FS Hx/Imm Hx Endocrine/Hematology History: Reports: Hx Diabetes - reports pre-diabetic, Hx Thyroid Disease - hypothyroid Cardiovascular History: Reports: Hx Hypertension, Other Cardiovascular Problems/ Disorders - hyperlipidemia Denies: Hx Pacemaker/ICD Respiratory History: Reports: Hx Sleep Apnea Denies: Other Respiratory Problems/Disorders GI History: Reports: Other GI Disorders - zenkers diverticulum History: Reports: Hx Kidney Infection - as a child, Other Problems/ Disorders - bladder spasm Denies: Hx Renal Disease Musculoskeletal History: Reports: Hx Arthritis - osteoarthritis, Hx Bursitis - RECENTLY- STATES IS STANDS FOR 2 HOURS- HAS TINGLING IN THE RIGHT LEG, Other Musculoskeletal History - gout Sensory History: Reports: Hx Cataracts - bilateral, Hx Contacts or Glasses - glasses, Hx Hearing Aid - bilateral Opthamlomology History: Reports: Hx Cataracts - bilateral, Hx Contacts or Glasses - glasses Neurological History: Denies: Other Neuro Impairments/Disorders Psychiatric History: Reports: Hx Anxiety, Hx Depression Denies: Hx Panic Disorder - Cancer History Hx Chemotherapy: No Hx Radiation Therapy: No - Surgical History Surgery Procedure, Year, and Place: left breast cyst removal ,[facility]. oophorectomy, , [facility]. right eye cataract [id number]. left eye cataract extraction 2015 [facility] [place] [facility] [place] zenkers diverticulum [place] [facility] [place] Anesthesia Reactions: No Infectious Disease History: No Infectious Disease History: Denies: Traveled Outside the [place] in Last 30 Days - Family History Known Family History: Positive: Cardiac Disease, Diabetes, Other - Blood clot - Social History Alcohol Use: Occasionally Alcohol Amount: 3 glasses of wine last night Substance Use Type: Reports: None Smoking Status (MU): Never Smoked Tobacco Have You Smoked in the Last Year: No Review of Systems Negative: Epistaxis Positive: Vomiting, Diarrhea, Nausea, Other - bloody stool All Other Systems Reviewed And Are Negative: Yes Physical Exam - Summary Physical Exam Summary: Appearance: The patient is well-nourished in no acute distress and in no acute pain. Skin: The skin is warm and dry and skin color reflects adequate perfusion. HEENT: The head is normocephalic and atraumatic. The pupils are equal and reactive. The conjunctivae are clear and without drainage. Nares are patent and without drainage. Mouth reveals dry mucous membranes and the throat is without erythema and exudate. The external ears are intact. The ear canals are patent and without drainage. The tympanic membranes are intact. Neck: the neck is supple with full range of motion and non-tender. There are no carotid bruits. There is no neck vein distension. Respiratory: Chest is non-tender. Lungs are clear to auscultation and breath sounds are symmetrical and equal. Cardiovascular: Heart is regular rate and rhythm.~There is no murmur or rub auscultated.~There is no peripheral edema and pulses are symmetrical and equal. Abdomen: The abdomen is soft and non-tender. There are normal bowel sounds heard in all four quadrants and there is no organomegaly palpated. Musculoskeletal: There is no back tenderness noted. Extremities are non-tender with full range of motion. There is good capillary refill. There is no peripheral edema or calf tenderness elicited. Neurological: Patient is alert and oriented to person, place and time. The patient has symmetrical motor strength in all four extremities. Cranial nerves are grossly intact. Deep tendon reflexes are symmetrical and equal in all four extremities. Psychiatric: The patient has an appropriate affect and does not exhibit any anxiety or depression. Triage Information Reviewed: Yes Vital Signs On Initial Exam: Initial Vitals Temp Pulse Resp BP Pulse Ox 97.3 F 52 17 163/61 99 01/12/18 07:16 01/12/18 07:16 01/12/18 07:16 01/12/18 07:16 01/12/18 07:16 Vital Signs Reviewed: Yes Diagnostics - Vital Signs Vital Signs Temp Pulse Resp BP Pulse Ox 01/12/18 08:00 51 185/71 100 01/12/18 07:35 49 97 01/12/18 07:33 204/65 01/12/18 07:16 97.3 F 52 17 163/61 99 - Laboratory Lab Results: Lab Results 01/12/18 01/12/18 01/12/18 Range/Units 08:15 08:15 08:15 WBC 13.6 H (3.5-10.8) 10^3/ul RBC 4.50 (4.0-5.4) 10^6/ul Hgb 13.2 (12.0-16.0) g/dl Hct 40 (35-47) % MCV 88 (80-97) fL MCH 29 (27-31) pg MCHC 34 (31-36) g/dl RDW 14 (10.5-15) % Plt Count 221 (150-450) 10^3/ul MPV 8 (7.4-10.4) um3 Neut % (Auto) 84.1 H (38-83) % Lymph % (Auto) 8.7 L (25-47) % [place] % (Auto) 6.5 (0-7) % Eos % (Auto) 0.3 (0-6) % Baso % (Auto) 0.4 (0-2) % Absolute Neuts (auto) 11.4 H (1.5-7.7) 10^3/ul Absolute Lymphs (auto) 1.2 (1.0-4.8) 10^3/ul Absolute Monos (auto) 0.9 H (0-0.8) 10^3/ul Absolute Eos (auto) 0 (0-0.6) 10^3/ul Absolute Basos (auto) 0.1 (0-0.2) 10^3/ul Absolute Nucleated RBC 0 10^3/ul Nucleated RBC % 0 Sodium 137 (133-145) mmol/L Potassium 3.8 (3.5-5.0) mmol/L Chloride 102 (101-111) mmol/L Carbon Dioxide 25 (22-32) mmol/L Anion Gap 10 (2-11) mmol/L BUN 25 H (6-24) mg/dL Creatinine 1.15 H (0.51-0.95) mg/dL Est GFR ( Amer) 59.0 (>60) Est GFR (Non-Af Amer) 45.9 (>60) BUN/Creatinine Ratio 21.7 H (8-20) Glucose 156 H (70-100) mg/dL Lactic Acid 2.2 H* (0.5-2.0) mmol/L Calcium 9.9 (8.6-10.3) mg/dL Total Bilirubin 0.50 (0.2-1.0) mg/dL AST 21 (13-39) U/L ALT 17 (7-52) U/L Alkaline Phosphatase 66 (34-104) U/L C-Reactive Protein 1.49 (< 5.00) mg/L Total Protein 7.6 (6.4-8.9) g/dL Albumin 4.1 (3.2-5.2) g/dL Globulin 3.5 (2-4) g/dL Albumin/Globulin Ratio 1.2 (1-3) Lipase 49 (11.0-82.0) U/L Urine Color Urine Appearance Urine pH (5-9) Ur Specific [place] (1.010-1.030) Urine Protein (Negative) Urine Ketones (Negative) Urine Blood (Negative) Urine Nitrate (Negative) Urine Bilirubin (Negative) Urine Urobilinogen (Negative) Ur Leukocyte Esterase (Negative) Urine Glucose (Negative) 01/12/18 Range/Units 09:12 WBC (3.5-10.8) 10^3/ul RBC (4.0-5.4) 10^6/ul Hgb (12.0-16.0) g/dl Hct (35-47) % MCV (80-97) fL MCH (27-31) pg MCHC (31-36) g/dl RDW (10.5-15) % Plt Count (150-450) 10^3/ul MPV (7.4-10.4) um3 Neut % (Auto) (38-83) % Lymph % (Auto) (25-47) % [place] % (Auto) (0-7) % Eos % (Auto) (0-6) % Baso % (Auto) (0-2) % Absolute Neuts (auto) (1.5-7.7) 10^3/ul Absolute Lymphs (auto) (1.0-4.8) 10^3/ul Absolute Monos (auto) (0-0.8) 10^3/ul Absolute Eos (auto) (0-0.6) 10^3/ul Absolute Basos (auto) (0-0.2) 10^3/ul Absolute Nucleated RBC 10^3/ul Nucleated RBC % Sodium (133-145) mmol/L Potassium (3.5-5.0) mmol/L Chloride (101-111) mmol/L Carbon Dioxide (22-32) mmol/L Anion Gap (2-11) mmol/L BUN (6-24) mg/dL Creatinine (0.51-0.95) mg/dL Est GFR ( Amer) (>60) Est GFR (Non-Af Amer) (>60) BUN/Creatinine Ratio (8-20) Glucose (70-100) mg/dL Lactic Acid (0.5-2.0) mmol/L Calcium (8.6-10.3) mg/dL Total Bilirubin (0.2-1.0) mg/dL AST (13-39) U/L ALT (7-52) U/L Alkaline Phosphatase (34-104) U/L C-Reactive Protein (< 5.00) mg/L Total Protein (6.4-8.9) g/dL Albumin (3.2-5.2) g/dL Globulin (2-4) g/dL Albumin/Globulin Ratio (1-3) Lipase (11.0-82.0) U/L Urine Color Yellow Urine Appearance Clear Urine pH 7.0 (5-9) Ur Specific [place] 1.012 (1.010-1.030) Urine Protein Negative (Negative) Urine Ketones Trace H (Negative) Urine Blood Negative (Negative) Urine Nitrate Negative (Negative) Urine Bilirubin Negative (Negative) Urine Urobilinogen Negative (Negative) Ur Leukocyte Esterase Negative (Negative) Urine Glucose Negative (Negative) Result Diagrams: 01/12/18 08:15 01/12/18 08:15 Lab Statement: Any lab studies that have been ordered have been reviewed, and results considered in the medical decision making process. - EKG 10:20 Cardiac Rate: Bradycardia - at 49 BPM EKG Rhythm: Sinus Rhythm Abdominal Pain Fem Course/Dx - Course Course Of Treatment: Ms. Harkins presented with crampy abdominal pain, N/V and what has become bloody stool. She first started to feel uncomfortable during the desert course of a dinner green party last evening and awakened at 0030 with the above symptoms. She has a mild leucocytosis and BRBPR. Dr. Faria was contacted with the concern for ischemic bowel and recommended admission. She is being seen by the hospitalist service. - Diagnoses Provider Diagnoses: GI bleed, Ischemic bowel syndrome - Provider Notifications Discussed Care Of Patient With: Tahir Faria Time Discussed With Above Provider: 12:00 Instructed by Provider To: Admit As Inpatient Discharge - Discharge Plan Condition: Stable Disposition: ADMITTED TO [facility] Referrals: Isidra Salinas MD [Primary Care Provider] - The documentation as recorded by the Yaakov garzon Thomas accurately reflects the service I personally performed and the decisions made by me, Matt Luevano MD.
[2018-01-12 14:27] LABS: Hematocrit 38 % (35-47); Hemoglobin 12.8 g/dl (12.0-16.0)
[2018-01-12] MEDS ORDERED: hydrALAZINE IV* 20 MG/ML VIAL IV SLOW PU PRN (15:38)
[2018-01-12] MEDS ORDERED: amLODIPine TAB* 5 MG PO ONE (15:38)
[2018-01-12] MEDS ORDERED: NS 0.9% 1000 ML* 1,000 ML IV SCH (15:45)
--- NOTE | 2018-01-12 19:48 | CONS ---
GASTROENTEROLOGY CONSULTATION DATE: 01/12/18 CONSULTING PHYSICIAN: Ravi Luevano, emergency room. REASON FOR CONSULT: Bloody stool since 1 a.m. HISTORY: This 77-year-old woman with longstanding type 2 diabetes and obesity, who had been feeling her usual self in recent weeks. She just recovered from a total knee replacement and then a quadriceps tendon tear surgery in the fall. Last night they had a full Mongolian dinner at home and around 1 a.m., she awakened with gas pains, felt constipated and tried to strain. She put herself through a number of maneuvers including hand pressure to try to pass material, and said there was "disgusting diarrhea," but no bleeding. There was some nausea and vomiting also. She got up about every hour and a half through several cycles and finally began seeing blood and then around 7 a.m. when she came to the emergency room, she was passing just blood. She is passing a little less over the last several hours. She has never had anything like this before. She had a colonoscopy in 2001 with a cecal tubular adenoma and a repeat in 2006 with another cecal tubular adenoma and then August 2013, her third colonoscopy was negative. She takes no fiber supplements. She normally has an aspirin, size unspecified and that was used for her orthopedic prophylaxis this past fall. Everyone else eating the same meal last night is well and her who has eaten the same food for the last several days is also well. PAST MEDICAL HISTORY: 1. Morbid obesity. 2. AODM. 3. Hypertension. 4. Hypothyroidism - on replacement. 5. Right total knee replacement in July 2017. 6. Sleep apnea. 7. Status post Zenker's diverticulum resection [place] [address] Carranza. FAMILY HISTORY: Her mother of a heart attack 1 week after a segmental colon resection; it occurred in her home while convalescing. This weighs heavily on the patient's mind today. SOCIAL HISTORY: She is . Retired from [employer]. REVIEW OF SYSTEMS: She has had an ovary removed (side not recalled). Had a breast lumpectomy and tonsillectomy in the past. No history of jaundice, hepatitis, seizures, syncope, MS, palpitations, hemoptysis, TB, or renal stones. EXAM: She is a morbidly obese woman in bed. She feels well, but frustrated going over and over again the history, saying she figures there must be clues. HEENT exam is unremarkable. She has no adenopathy. Her lungs are clear and heart sounds normal. Breasts without masses. The abdomen is obese with an incipient panniculus. There is some vague, left mid to left lower quadrant tenderness to deep palpation, but no guarding. Perianal inspection shows bright red mucoid staining and digital rectal reveals a little more the same. Extremities show no edema. The knee scar is well healed. LABS: White count 13, hemoglobin 13, hematocrit 40. LFTs normal. IMPRESSION: The history is quite characteristic of ischemic colitis in this 77 - year-old woman with 20 years of metabolic syndrome. She is a setup for that. For the moment, it is clinically mild to moderate as she has stopped vomiting and does have bowel sounds and is minimally tender. Nonetheless, the course is not entirely predictable. Flexible sigmoidoscopy without a prep is likely to be the next useful step. [id number]/CPS #: [id number] MTDD
[2018-01-12] MEDS: Acetaminophen TAB* 325 MG PO PRN (19:51)
[2018-01-12] MEDS: Ondansetron INJ* 2 MG/ML VIAL IV PRN (19:52)
--- NOTE | 2018-01-12 20:21 | HP ---
CC: Dr. Salinas * ADMISSION HISTORY AND PHYSICAL: DATE OF ADMISSION: 01/12/18 PRIMARY CARE PROVIDER: Dr. Salinas. HEALTHCARE PROXY: Her . CODE STATUS: Full. SOURCE OF INFORMATION: History obtained from interview with the patient and her . RELIABILITY: Good. CHIEF COMPLAINT: Bleeding per rectum. HISTORY OF PRESENT ILLNESS: This is a 77-year-old female with past medical history of hypertension, diabetes, obstructive sleep apnea, been in her usual state of health until the night prior to presentation, went to a dinner democrat, had had decreased appetite, did not want to eat dessert, which happened to be her favorite, pecan pie. Upon leaving the dinner democrat she noted that she felt ill with as if something "didn't sit right." She went to bed and around 12:15 a.m. the night of admission she woke up, had an episode of nausea and vomiting and a "gas attack" that made her feel constipated and had some lower abdominal pain. She attempted to move her bowels, she strained and had a small solid formed stool followed by liquidy diarrhea. She noted that she had no improvement in her associated pain with bowel movement. Approximately 2:30 a.m. she woke to have additional nausea and vomiting, had another bowel movement , although at this time it was associated with some blood on the toilet paper and a small amount in the toilet. Around 4:15 in the morning she had dry heaving and now was passing bright red blood and absent stool in the toilet. Another episode of bright red blood at 5:30 a.m., after which she presented to [facility]. After presenting to the emergency room she had an episode of bloody bowel movement around 7 a.m. and then last known is approximately 2:30 p.m. she had a small amount of blood with bowel movement prior to being seen by this author. Current time of the dictation is 3:45 p.m. Prior to the night presentation she had felt herself and felt well, except for what she describes upper respiratory tract infection that started approximately 12/31/17 associated with rhinorrhea, sore throat, and headache, which her also had. They both denied testing positive for influenza. When seen by this author, the patient was comfortable, denied any abdominal pain , nausea, vomiting, although does feel thirsty. PAST MEDICAL HISTORY: Includes hypertension, prediabetes controlled on metformin, obstructive sleep apnea uses CPAP, she thinks her pressure is 9, hypothyroidism, depression, she has had a right total knee replacement, she had a right quadriceps tendon rupture with repair, depression, she had a fibrocystic cyst removed from her breast and oophorectomy, bilateral cataract removal and tonsillectomy. MEDICATIONS: Reviewed, include: 1. Multivitamin 1 daily. 2. Amlodipine 5 mg daily, recently increased from 2.5 mg daily. 3. Nasonex 1 spray both nares as needed. 4. Synthroid 50 mcg daily. 5. Allopurinol 100 mg daily. 6. Tolterodine 2 mg twice daily. 7. Atorvastatin 10 mg in the morning. 8. Valsartan 320 mg recently doubled. 9. Aspirin 325 mg daily. 10. Metformin 500 mg twice daily. ALLERGIES: To CODEINE, QUINOLONE, SULFA and TRAMADOL. FAMILY HISTORY: History of diabetes, CAD and CVA. SOCIAL HISTORY: No illicits. Drinks 2 to 3 drinks per week. Retired. REVIEW OF SYSTEMS: As per HPI otherwise all other systems negative. PHYSICAL EXAMINATION GENERAL: Sitting up in bed interactive, pleasant in no apparent distress. VITAL SIGNS: When seen by this author 172/51, heart rate was 77, respiratory rate is 16, O2 sat is currently not reading through her acrylic nails. T-max in the emergency room is 97.3, heart rate previous monitored as low as 49 while in the ED. HEENT: Oropharynx is clear. She has dry mucous membranes. Sclerae anicteric. NECK: Nonelevated JVD. No cervical or supraclavicular lymphadenopathy. LUNGS: Lungs are clear to auscultation. HEART: Regular rate and rhythm. No murmurs, rubs or gallops. ABDOMEN: Her abdomen is soft. She has mild tenderness, left upper quadrant. No rebound or guarding. Positive bowel sounds in 4 quadrants. EXTREMITIES: Warm and well perfused. No clubbing, cyanosis or edema. NEURO: She is alert and oriented x3. Her cranial nerves II through XII are intact. She has no apparent anxiety, agitation, or depression. DIAGNOSTIC STUDIES/LAB DATA: Labs reviewed. Presenting hemoglobin 13.2, decreased to 12.8 over 6 hours; white blood cell count 13.6; platelets 221,000. Lactic acid 2.2, improved to 0.9; creatinine 1.15; lipase 49. Urine benign except for presence of ketones. Data reviewed. EKG: Sinus bradycardia, ventricular rate of 49, normal limit axis, normal limit intervals, normal R-wave progression. No ST or T wave changes. ASSESSMENT AND PLAN: This 77-year-old female, past medical history as outlined above, presenting with multiple episodes of bright red blood per rectum. Bright blood per rectum, concern for ischemic colitis. The patient has already been seen by Dr. Faria from Gastroenterology with plans for flex sigmoidoscopy tomorrow morning. N.p.o. after midnight. Continue to trend H and H q.6 hours until stable. Maintain hemoglobin above 7, if needed transfusion. Obstructive sleep apnea, on CPAP. The patient to use her own machine, inspiratory pressure at 9. Hypertension. The patient notes that she took her medications today. I am going to give her additional 5 mg of amlodipine for a total dose of 10 mg today. Additionally, hydralazine as needed. Bradycardia. Normal sinus, maybe in response to morphine. Hold morphine unless needed. Currently asymptomatic. Troponin is 0. Continue to monitor. We will place on telemetry on [address]. Chronic kidney disease. Dose meds accordingly. DVT prophylaxis. SCDs in the setting of active bleed. [id number]/[facility] #: [id number] MTDRonnell
[2018-01-12 22:30] LABS: Hematocrit 36 % (35-47); Hemoglobin 12.1 g/dl (12.0-16.0)
[2018-01-13 02:22] LABS: Hematocrit 38 % (35-47); Hemoglobin 12.4 g/dl (12.0-16.0)
[2018-01-13] MEDS: Levothyroxine TAB* 50 MCG TAB PO SCH (05:19)
[2018-01-13] MEDS: Acetaminophen TAB* 325 MG PO PRN (07:52)
[2018-01-13] MEDS ORDERED: Midazolam* 1 MG/ML 10 ML VIAL (10 MG) ONE (13:39)
[2018-01-13] MEDS ORDERED: fentaNYL* 50 MCG/ML 2 ML VIAL (100 MCG VIAL) ONE (13:39)
[2018-01-13] MEDS: Allopurinol TAB* 100 MG PO SCH ×2 (14:35→16:11)
[2018-01-13] MEDS: Valsartan TAB* 160 MG PO SCH ×2 (14:35→16:11)
[2018-01-13] MEDS: Atorvastatin* 10 MG TAB PO SCH ×2 (14:35→16:11)
[2018-01-13] MEDS: amLODIPine TAB* 5 MG PO SCH (16:59)
--- NOTE | 2018-01-13 17:06 | PN ---
Subjective Date of Service: 01/13/18 Interval History: Last episode of bloody BM 10am mild abdominal cramping no other complaints Objective Active Medications: Acetaminophen (Tylenol Tab*) 650 mg PO Q4H PRN PRN Reason: FEVER/PAIN Last Admin: 01/13/18 07:52 Dose: 650 mg Allopurinol (Zyloprim Tab*) 100 mg PO QAM [facility] Last Admin: 01/13/18 16:11 Dose: 100 mg Amlodipine Besylate (Norvasc Tab*) 10 mg PO DAILY [facility] Last Admin: 01/13/18 16:59 Dose: 10 mg Atorvastatin Calcium (Lipitor*) 10 mg PO QAM [facility] Last Admin: 01/13/18 16:11 Dose: 10 mg Hydralazine HCl (Apresoline Iv*) 5 mg IV SLOW PU Q6H PRN PRN Reason: SYSTOLIC BP GREATER THAN: Levothyroxine Sodium (Synthroid Tab*) 50 mcg PO 0600 [facility] Last Admin: 01/13/18 05:19 Dose: 50 mcg Ondansetron HCl (Zofran Inj*) 4 mg IV Q4H PRN PRN Reason: NAUSEA/VOMITING Last Admin: 01/12/18 19:52 Dose: 4 mg Polyethylene Glycol/Electrolytes (Golytely*) 2,000 ml PO 1800 ONE Stop: 01/13/18 18:01 Polyethylene Glycol/Electrolytes (Golytely*) 2,000 ml PO 0600 ONE Stop: 01/14/18 06:01 Valsartan (Diovan Tab*) 320 mg PO DAILY [facility] Last Admin: 01/13/18 16:11 Dose: 320 mg Vital Signs - 8 hr 01/13/18 01/13/18 01/13/18 11:14 16:50 16:56 Temperature 98.4 F Pulse Rate 49 52 52 Respiratory 18 18 Rate Blood Pressure 138/41 176/59 (mmHg) O2 Sat by Pulse 91 97 Oximetry Oxygen Devices in Use Now: None Appearance: Well appearing, NAD Eyes: No Scleral Icterus, PERRLA Ears/Nose/Mouth/Throat: NL Teeth, Lips, Gums, Clear Oropharnyx, Mucous Membranes Moist Neck: NL Appearance and Movements; NL JVP, Trachea Midline Respiratory: Symmetrical Chest Expansion and Respiratory Effort, Clear to Auscultation Cardiovascular: RRR Abdominal: - - mild llq tenderness Neurological: Alert and Oriented x 3 Result Diagrams: 01/13/18 02:03 01/12/18 08:15 Additional Lab and Data: Lab Results 01/12/18 01/12/18 01/12/18 Range/Units 08:15 08:15 08:15 WBC 13.6 H (3.5-10.8) 10^3/ul RBC 4.50 (4.0-5.4) 10^6/ul Hgb 13.2 (12.0-16.0) g/dl Hct 40 (35-47) % MCV 88 (80-97) fL MCH 29 (27-31) pg MCHC 34 (31-36) g/dl RDW 14 (10.5-15) % Plt Count 221 (150-450) 10^3/ul MPV 8 (7.4-10.4) um3 Neut % (Auto) 84.1 H (38-83) % Lymph % (Auto) 8.7 L (25-47) % Gem % (Auto) 6.5 (0-7) % Eos % (Auto) 0.3 (0-6) % Baso % (Auto) 0.4 (0-2) % Absolute Neuts (auto) 11.4 H (1.5-7.7) 10^3/ul Absolute Lymphs (auto) 1.2 (1.0-4.8) 10^3/ul Absolute Monos (auto) 0.9 H (0-0.8) 10^3/ul Absolute Eos (auto) 0 (0-0.6) 10^3/ul Absolute Basos (auto) 0.1 (0-0.2) 10^3/ul Absolute Nucleated RBC 0 10^3/ul Nucleated RBC % 0 Sodium 137 (133-145) mmol/L Potassium 3.8 (3.5-5.0) mmol/L Chloride 102 (101-111) mmol/L Carbon Dioxide 25 (22-32) mmol/L Anion Gap 10 (2-11) mmol/L BUN 25 H (6-24) mg/dL Creatinine 1.15 H (0.51-0.95) mg/dL Est GFR ( Amer) 59.0 (>60) Est GFR (Non-Af Amer) 45.9 (>60) BUN/Creatinine Ratio 21.7 H (8-20) Glucose 156 H (70-100) mg/dL Lactic Acid 2.2 H* (0.5-2.0) mmol/L Calcium 9.9 (8.6-10.3) mg/dL Total Bilirubin 0.50 (0.2-1.0) mg/dL AST 21 (13-39) U/L ALT 17 (7-52) U/L Alkaline Phosphatase 66 (34-104) U/L C-Reactive Protein 1.49 (< 5.00) mg/L Total Protein 7.6 (6.4-8.9) g/dL Albumin 4.1 (3.2-5.2) g/dL Globulin 3.5 (2-4) g/dL Albumin/Globulin Ratio 1.2 (1-3) Lipase 49 (11.0-82.0) U/L Urine Color Urine Appearance Urine pH (5-9) Ur Specific [place] (1.010-1.030) Urine Protein (Negative) Urine Ketones (Negative) Urine Blood (Negative) Urine Nitrate (Negative) Urine Bilirubin (Negative) Urine Urobilinogen (Negative) Ur Leukocyte Esterase (Negative) Urine Glucose (Negative) 01/12/18 Range/Units 09:12 WBC (3.5-10.8) 10^3/ul RBC (4.0-5.4) 10^6/ul Hgb (12.0-16.0) g/dl Hct (35-47) % MCV (80-97) fL MCH (27-31) pg MCHC (31-36) g/dl RDW (10.5-15) % Plt Count (150-450) 10^3/ul MPV (7.4-10.4) um3 Neut % (Auto) (38-83) % Lymph % (Auto) (25-47) % Gem % (Auto) (0-7) % Eos % (Auto) (0-6) % Baso % (Auto) (0-2) % Absolute Neuts (auto) (1.5-7.7) 10^3/ul Absolute Lymphs (auto) (1.0-4.8) 10^3/ul Absolute Monos (auto) (0-0.8) 10^3/ul Absolute Eos (auto) (0-0.6) 10^3/ul Absolute Basos (auto) (0-0.2) 10^3/ul Absolute Nucleated RBC 10^3/ul Nucleated RBC % Sodium (133-145) mmol/L Potassium (3.5-5.0) mmol/L Chloride (101-111) mmol/L Carbon Dioxide (22-32) mmol/L Anion Gap (2-11) mmol/L BUN (6-24) mg/dL Creatinine (0.51-0.95) mg/dL Est GFR ( Amer) (>60) Est GFR (Non-Af Amer) (>60) BUN/Creatinine Ratio (8-20) Glucose (70-100) mg/dL Lactic Acid (0.5-2.0) mmol/L Calcium (8.6-10.3) mg/dL Total Bilirubin (0.2-1.0) mg/dL AST (13-39) U/L ALT (7-52) U/L Alkaline Phosphatase (34-104) U/L C-Reactive Protein (< 5.00) mg/L Total Protein (6.4-8.9) g/dL Albumin (3.2-5.2) g/dL Globulin (2-4) g/dL Albumin/Globulin Ratio (1-3) Lipase (11.0-82.0) U/L Urine Color Yellow Urine Appearance Clear Urine pH 7.0 (5-9) Ur Specific [place] 1.012 (1.010-1.030) Urine Protein Negative (Negative) Urine Ketones Trace H (Negative) Urine Blood Negative (Negative) Urine Nitrate Negative (Negative) Urine Bilirubin Negative (Negative) Urine Urobilinogen Negative (Negative) Ur Leukocyte Esterase Negative (Negative) Urine Glucose Negative (Negative) Assess/Plan/Problems-Billing Assessment: 77 yo F p/w BRBPR - Patient Problems (1) Lower GI bleed Current Visit: Yes Comment: unprepped flex sig with blood. Difficult to assess Repeat cscope tomorrow with prep (2) NANO (obstructive sleep apnea) Comment: Continue CPAP (3) Hypothyroidism Comment: Continue levothyroxine. (4) DVT prophylaxis Comment: SCDs
[2018-01-13 17:26] LABS: Hematocrit 37 % (35-47); Hemoglobin 12.1 g/dl (12.0-16.0)
[2018-01-13] MEDS ORDERED: PEG 3000 GI LAVAGE* 1 GALLON PO ONE (18:00)
[2018-01-13] MEDS: Ondansetron INJ* 2 MG/ML VIAL IV PRN (19:36)
[2018-01-14] MEDS: Ondansetron INJ* 2 MG/ML VIAL IV PRN ×3 (05:29→13:28)
[2018-01-14] MEDS: Levothyroxine TAB* 50 MCG TAB PO SCH (05:30)
[2018-01-14] MEDS ORDERED: PEG 3000 GI LAVAGE* 1 GALLON PO ONE (06:00)
--- NOTE | 2018-01-14 06:17 | PN ---
Progress Note - Progress Note Date of Service: 01/14/18 Note: Was on the floor assessing another patient when called emergently to patient's room by nursing re: concern for CVA. Upon arrival, she was awakening slowly from sleep, but was fully alert within a few short seconds, perhaps 15 at most. While she had difficulty speaking initially, this quickly resolved and she was speaking clearly. Alert, awake & oriented to PPS. She denied complaints. Tongue was midline. EOMI/PERRLA. Good eye clench & mastication. Equal body maker strength, R handed. Muscular tested & globally 4+/5. Crude touch tested and globally intact. NIH stoke scale zero. Vitals were stable. Blood sugar 120s. No further evaluation recommended.
[2018-01-14] MEDS: Atorvastatin* 10 MG TAB PO SCH (08:24)
[2018-01-14] MEDS: Valsartan TAB* 160 MG PO SCH (08:24)
[2018-01-14] MEDS: amLODIPine TAB* 5 MG PO SCH (08:24)
[2018-01-14] MEDS: Allopurinol TAB* 100 MG PO SCH (08:24)
[2018-01-14] MEDS ORDERED: Midazolam* 1 MG/ML 10 ML VIAL (10 MG) ONE (16:30)
[2018-01-14] MEDS ORDERED: fentaNYL* 50 MCG/ML 2 ML VIAL (100 MCG VIAL) ONE (16:30)
[2018-01-14] MEDS ORDERED: Ampicillin IV* 1 GM VIAL ONE (16:49)
[2018-01-14] MEDS ORDERED: SODIUM CHLORIDE 0.9% IVPB ONE (17:00)
[2018-01-14] MEDS ORDERED: AMPICILLIN 2 GM IVPB ONE (17:00)
--- NOTE | 2018-01-14 18:21 | PN ---
Subjective Date of Service: 01/14/18 Interval History: Seen with this AM Continued bleeding overnight but progressively less blood and last with small amount of brown stool Generalized abdominal pain but localizes to left upper quadrant as the worse Objective Active Medications: Acetaminophen (Tylenol Tab*) 650 mg PO Q4H PRN PRN Reason: FEVER/PAIN Last Admin: 01/13/18 07:52 Dose: 650 mg Allopurinol (Zyloprim Tab*) 100 mg PO QAM REPLACED BY [facility] Last Admin: 01/14/18 08:24 Dose: 100 mg Amlodipine Besylate (Norvasc Tab*) 10 mg PO DAILY REPLACED BY [facility] Last Admin: 01/14/18 08:24 Dose: 10 mg Atorvastatin Calcium (Lipitor*) 10 mg PO QAM REPLACED BY [facility] Last Admin: 01/14/18 08:24 Dose: 10 mg Hydralazine HCl (Apresoline Iv*) 5 mg IV SLOW PU Q6H PRN PRN Reason: SYSTOLIC BP GREATER THAN: Levothyroxine Sodium (Synthroid Tab*) 50 mcg PO 0600 REPLACED BY [facility] Last Admin: 01/14/18 05:30 Dose: 50 mcg Ondansetron HCl (Zofran Inj*) 4 mg IV Q4H PRN PRN Reason: NAUSEA/VOMITING Last Admin: 01/14/18 13:28 Dose: 4 mg Valsartan (Diovan Tab*) 320 mg PO DAILY REPLACED BY [facility] Last Admin: 01/14/18 08:24 Dose: 320 mg Vital Signs - 8 hr 01/14/18 01/14/18 01/14/18 11:48 15:51 18:04 Temperature 98.0 F 97.9 F 97.3 F Pulse Rate 71 72 57 Respiratory 18 20 16 Rate Blood Pressure 176/67 166/59 136/47 (mmHg) O2 Sat by Pulse 94 91 93 Oximetry Oxygen Devices in Use Now: None Appearance: nad Eyes: No Scleral Icterus, PERRLA Ears/Nose/Mouth/Throat: NL Teeth, Lips, Gums, Clear Oropharnyx, Mucous Membranes Moist Neck: NL Appearance and Movements; NL JVP, Trachea Midline Respiratory: Symmetrical Chest Expansion and Respiratory Effort, Clear to Auscultation Cardiovascular: RRR Abdominal: - - TTP LUQ to deep palpation Lymphatic: No Cervical Adenopathy Extremities: No Edema, No Clubbing, Cyanosis Skin: No Rash or Ulcers Neurological: Alert and Oriented x 3 Result Diagrams: 01/13/18 17:08 01/12/18 08:15 Additional Lab and Data: Lab Results 01/12/18 01/12/18 01/12/18 Range/Units 08:15 08:15 08:15 WBC 13.6 H (3.5-10.8) 10^3/ul RBC 4.50 (4.0-5.4) 10^6/ul Hgb 13.2 (12.0-16.0) g/dl Hct 40 (35-47) % MCV 88 (80-97) fL MCH 29 (27-31) pg MCHC 34 (31-36) g/dl RDW 14 (10.5-15) % Plt Count 221 (150-450) 10^3/ul MPV 8 (7.4-10.4) um3 Neut % (Auto) 84.1 H (38-83) % Lymph % (Auto) 8.7 L (25-47) % [place] % (Auto) 6.5 (0-7) % Eos % (Auto) 0.3 (0-6) % Baso % (Auto) 0.4 (0-2) % Absolute Neuts (auto) 11.4 H (1.5-7.7) 10^3/ul Absolute Lymphs (auto) 1.2 (1.0-4.8) 10^3/ul Absolute Monos (auto) 0.9 H (0-0.8) 10^3/ul Absolute Eos (auto) 0 (0-0.6) 10^3/ul Absolute Basos (auto) 0.1 (0-0.2) 10^3/ul Absolute Nucleated RBC 0 10^3/ul Nucleated RBC % 0 Sodium 137 (133-145) mmol/L Potassium 3.8 (3.5-5.0) mmol/L Chloride 102 (101-111) mmol/L Carbon Dioxide 25 (22-32) mmol/L Anion Gap 10 (2-11) mmol/L BUN 25 H (6-24) mg/dL Creatinine 1.15 H (0.51-0.95) mg/dL Est GFR ( Amer) 59.0 (>60) Est GFR (Non-Af Amer) 45.9 (>60) BUN/Creatinine Ratio 21.7 H (8-20) Glucose 156 H (70-100) mg/dL Lactic Acid 2.2 H* (0.5-2.0) mmol/L Calcium 9.9 (8.6-10.3) mg/dL Total Bilirubin 0.50 (0.2-1.0) mg/dL AST 21 (13-39) U/L ALT 17 (7-52) U/L Alkaline Phosphatase 66 (34-104) U/L C-Reactive Protein 1.49 (< 5.00) mg/L Total Protein 7.6 (6.4-8.9) g/dL Albumin 4.1 (3.2-5.2) g/dL Globulin 3.5 (2-4) g/dL Albumin/Globulin Ratio 1.2 (1-3) Lipase 49 (11.0-82.0) U/L Urine Color Urine Appearance Urine pH (5-9) Ur Specific [place] (1.010-1.030) Urine Protein (Negative) Urine Ketones (Negative) Urine Blood (Negative) Urine Nitrate (Negative) Urine Bilirubin (Negative) Urine Urobilinogen (Negative) Ur Leukocyte Esterase (Negative) Urine Glucose (Negative) 01/12/18 Range/Units 09:12 WBC (3.5-10.8) 10^3/ul RBC (4.0-5.4) 10^6/ul Hgb (12.0-16.0) g/dl Hct (35-47) % MCV (80-97) fL MCH (27-31) pg MCHC (31-36) g/dl RDW (10.5-15) % Plt Count (150-450) 10^3/ul MPV (7.4-10.4) um3 Neut % (Auto) (38-83) % Lymph % (Auto) (25-47) % [place] % (Auto) (0-7) % Eos % (Auto) (0-6) % Baso % (Auto) (0-2) % Absolute Neuts (auto) (1.5-7.7) 10^3/ul Absolute Lymphs (auto) (1.0-4.8) 10^3/ul Absolute Monos (auto) (0-0.8) 10^3/ul Absolute Eos (auto) (0-0.6) 10^3/ul Absolute Basos (auto) (0-0.2) 10^3/ul Absolute Nucleated RBC 10^3/ul Nucleated RBC % Sodium (133-145) mmol/L Potassium (3.5-5.0) mmol/L Chloride (101-111) mmol/L Carbon Dioxide (22-32) mmol/L Anion Gap (2-11) mmol/L BUN (6-24) mg/dL Creatinine (0.51-0.95) mg/dL Est GFR ( Amer) (>60) Est GFR (Non-Af Amer) (>60) BUN/Creatinine Ratio (8-20) Glucose (70-100) mg/dL Lactic Acid (0.5-2.0) mmol/L Calcium (8.6-10.3) mg/dL Total Bilirubin (0.2-1.0) mg/dL AST (13-39) U/L ALT (7-52) U/L Alkaline Phosphatase (34-104) U/L C-Reactive Protein (< 5.00) mg/L Total Protein (6.4-8.9) g/dL Albumin (3.2-5.2) g/dL Globulin (2-4) g/dL Albumin/Globulin Ratio (1-3) Lipase (11.0-82.0) U/L Urine Color Yellow Urine Appearance Clear Urine pH 7.0 (5-9) Ur Specific [place] 1.012 (1.010-1.030) Urine Protein Negative (Negative) Urine Ketones Trace H (Negative) Urine Blood Negative (Negative) Urine Nitrate Negative (Negative) Urine Bilirubin Negative (Negative) Urine Urobilinogen Negative (Negative) Ur Leukocyte Esterase Negative (Negative) Urine Glucose Negative (Negative) Assess/Plan/Problems-Billing Assessment: 77 yo F p/w BRBPR - Patient Problems (1) Lower GI bleed Current Visit: Yes Comment: unprepped flex sig with blood. Difficult to assess Repeat cscope today. No results as of this time (2) NANO (obstructive sleep apnea) Comment: Continue CPAP (3) Hypothyroidism Comment: Continue levothyroxine. (4) DVT prophylaxis Comment: SCDs Status and Disposition: In patient for LGIB. Suspect home tomorrow
[2018-01-15] MEDS: Levothyroxine TAB* 50 MCG TAB PO SCH (05:47)
[2018-01-15 08:05] VITALS: BP 130/49
[2018-01-15] MEDS: Allopurinol TAB* 100 MG PO SCH (08:11)
[2018-01-15] MEDS: amLODIPine TAB* 5 MG PO SCH (08:11)
[2018-01-15] MEDS: Valsartan TAB* 160 MG PO SCH (08:11)
[2018-01-15] MEDS: Atorvastatin* 10 MG TAB PO SCH (08:12)
[2018-01-15 09:14] LABS: ABS Basophils 0.1 10^3/ul (0-0.2); ABS Eosinophils 0.3 10^3/ul (0-0.6); ABS Lymphocytes 1.4 10^3/ul (1.0-4.8); ABS Monocytes 0.9 10^3/ul (0-0.8); ABS Neutrophils 11.2 10^3/ul (1.5-7.7); ABS Nucleated RBC 0 10^3/ul; Hematocrit 36 % (35-47); Hemoglobin 11.9 g/dl (12.0-16.0); Lymphocyte % 10.2 % (25-47); Mean Corpuscular HGB Conc 33 g/dl (31-36); Mean Corpuscular Hemoglobin 30 pg (27-31); Mean Corpuscular Volume 89 fL (80-97); Mean Platelet Volume 8 um3 (7.4-10.4); Nucleated Red Blood Cells % 0.2; Platelet Count 193 10^3/ul (150-450); Red Blood Count 4.06 10^6/ul (4.0-5.4); Red Cell Distribution Width 14 % (10.5-15); White Blood Count 13.8 10^3/ul (3.5-10.8)
[2018-01-15 09:27] LABS: EGFR Non-African American 49.3 (>60)
[2018-01-15] MEDS ORDERED: Potassium Chlor TAB* 20 MEQ TAB.ER PO ONE (11:13)
--- NOTE | 2018-01-15 12:16 | PRO ---
DATE: 01/14/18 - ROOM #415 REFERRING PHYSICIANS: Dr. Isidra Salinas.* PROCEDURE: Flexible sigmoidoscopy and biopsy of eroded [id number] sigmoid colon. INDICATION: This 77-year-old woman with longstanding diabetes on oral agents developed abrupt diarrhea in the middle of the night, which turned bloody. Yesterday, there was still too much blood to easily traverse the sigmoid colon. She received 2 L of Colyte last night and some additional fluid this morning probably totalling 2.5 L. She has not had any vomiting or fever. 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 ENDOSCOPIST: Dr. Faria. MEDICATION: Midazolam 6, fentanyl 75. FINDINGS: She is a morbidly obese older woman in no distress at this time. Bowel sounds are present. There is left lower quadrant tenderness. Perianal inspection and the rectum are normal. Initial views show normal rectal mucosa. The mucosa continues to be normal in the rectosigmoid, distal sigmoid and mid sigmoid and then there is a patchy erythema over a haustral fold or two and then abrupt transition to swollen bluish purple folds quite typical of ischemic colitis. There was no need to progress beyond about 10 cm. There was actually some solid stool coming from above that appeared normal and formed. Four biopsies were obtained from the involved segment. Final views of the rectum including retroflexion were normal. IMPRESSION: Ischemic colitis - visually defined with a classic history and at age 77 with vascular risk factors, conservative management appears indicated. [id number]/[facility] #: [id number] MTDD
--- NOTE | 2018-01-16 04:55 | DS ---
CC: Dr. Salinas * DISCHARGE SUMMARY: DATE OF ADMISSION: 01/12/18 DATE OF DISCHARGE: 01/15/18 PRIMARY CARE PROVIDER: Dr. Salinas. PRINCIPAL DIAGNOSIS: Ischemic colitis. SECONDARY DIAGNOSES: 1. Hypertension. 2. Pre-diabetes. 3. Obstructive sleep apnea, on CPAP. 4. Hypothyroidism. 5. Depression. DISCHARGE MEDICATIONS: 1. Multivitamin 1 tablet p.o. daily. 2. Amlodipine 10 mg p.o. daily. 3. Nasonex 1 squirt to both nostrils daily p.r.n. allergies. 4. Synthroid 50 mcg p.o. daily. 5. Allopurinol 100 mg p.o. daily. 6. Detrol 2 mg p.o. b.i.d. 7. Lipitor 10 mg p.o. daily. 8. Valsartan 320 mg p.o. daily. 9. Aspirin 325 mg p.o. daily, to be started on 01/27/18. 10. Metformin 500 mg p.o. twice daily. 11. Augmentin 500 mg p.o. twice daily x7 days. HOSPITAL COURSE: Ms. Mccormack is a 77-year-old female who presented to the emergency room with complaints of bright red blood per rectum. The patient was admitted for concerns of ischemic colitis. The patient was seen by Dr. Faria with plans for a flexible sigmoidoscopy the day after admission. This was performed by Dr. Faria on 01/13/18. He reported this to be "bloody mess." The patient was then prepped for colonoscopy with Dr. Faria on 01/14/18. The results of this are not yet transcribed; however, by verbal report, the patient had moderately severe ischemic colitis. The patient has been afebrile. Her white blood cell count is moderately elevated at 13.8 on the day of discharge. It was 13.6 on the day of admission. She has been tolerating a soft, low-fiber diet without any difficulty and is very interested in being discharged to home today. At this point, the patient is felt to be stable for discharge home. She should follow up with her primary care provider in the next 4 to 7 days. Activity level is as tolerated and diet is soft, low fiber. Of note, the patient's blood pressure was markedly elevated at admission. Her amlodipine dose was increased to 10 mg daily and with this her blood pressure is under much better control. The patient will be discharged on amlodipine 10 mg daily in addition to her usual home medication regimen. I am asking that she hold her aspirin until January 27, 2018. One the day of discharge, the patient is awake, alert, and oriented, sitting up in bed, in no acute distress. Vital signs revealed blood pressure of 130/49, pulse 51, respirations 18, temperature 98.1, and O2 saturation of 91% on room air. Cardiac exam reveals a normal S1 and S2, with a regular rate and rhythm. I do not appreciate any murmurs. There is no lower extremity edema. Pulmonary : Breath sounds are diminished throughout, but clear. Abdomen: Bowel sounds are present. Abdomen is soft, nondistended. She has minimal tenderness on palpation now. FOLLOWUP CONCERNS: The patient is being discharged home today, 01/15/18. CONDITION ON DISCHARGE: Stable. ACTIVITY LEVEL: As tolerated. TIME SPENT: Thirty-five minutes were spent discharging this patient. [id number]/[facility] #: [id number] EMILY
--- NOTE | 2018-01-18 07:50 | PRO ---
CC: Dr. Salinas* PROCEDURE REPORT: DATE OF PROCEDURE: 01/13/18 PROCEDURE: Flexible sigmoidoscopy. INDICATION: Suspect ischemic colitis. REFERRING PHYSICIAN: Dr. Salinas. MEDICATIONS GIVEN: 1. 50 mcg IV fentanyl. 2. 5 mg IV Versed. DESCRIPTION OF PROCEDURE: After the flexible sigmoidoscopy procedure, including the risks, benefits, and alternatives, not limited to perforation, surgery, and/or were explained to Mrs. Mccormack, written consent was then obtained, IV medication was given, and a rectal exam was performed. The rectal exam was unremarkable. An Olympus colonoscopy was then inserted into the patient's rectum and advanced to the splenic flexure. Unfortunately, I could see nothing. There was dark maroon and brandi colored stool and blood throughout the entirety of the colon. I tried to suction and wash this as much as I could; however, the stool was very adhered. Given the fact I could see nothing, I decided to terminate the procedure and slowly withdraw the scope. She was returned to her hospital room in stable condition. IMPRESSION: 1. Flexible sigmoidoscopy to the splenic flexure. 2. Nondiagnostic due to poor prep. 3. The patient was not prepped yesterday. I would recommend that we do prep her adequately or appropriately and repeat her flexible sigmoidoscopy tomorrow so we can see more. [id number]/[facility] #: [id number] [facility]
== END 2018-01-15 12:06 | disposition home or self-care (01) | DRG 394 ==
LOC: ED 07:12 → MED 15:34 → OBSVTOIN 01-13 14:00
PROVIDERS: ADMIT Internal Medicine; ATTEND Hospitalist
PROC: 0DJD8ZZ Inspection of Lower Intestinal Tract, Via Natural or Artificial Opening Endoscopic (ICD-10-PCS; principal; 2018-01-13)
PROC: 0DBN8ZX Excision of Sigmoid Colon, Via Natural or Artificial Opening Endoscopic, Diagnostic (ICD-10-PCS; 2018-01-14)
DX: K55.9 Vascular disorder of intestine, unspecified (principal); K62.5 Hemorrhage of anus and rectum; R00.1 Bradycardia, unspecified; E66.01 Morbid (severe) obesity due to excess calories; E03.9 Hypothyroidism, unspecified; R29.700 NIHSS score 0; G47.33 Obstructive sleep apnea (adult) (pediatric); R73.03 Prediabetes; F32.9 Major depressive disorder, single episode, unspecified; Z96.651 Presence of right artificial knee joint; N18.9 Chronic kidney disease, unspecified; I12.9 Hypertensive chronic kidney disease with stage 1 through stage 4 chronic kidney disease, or unspecified chronic kidney disease; E78.5 Hyperlipidemia, unspecified; M19.90 Unspecified osteoarthritis, unspecified site; M10.9 Gout, unspecified; F41.9 Anxiety disorder, unspecified; Z83.2 Family history of diseases of the blood and blood-forming organs and certain disorders involving the immune mechanism; Z79.84 Long term (current) use of oral hypoglycemic drugs; Z79.82 Long term (current) use of aspirin; Z98.42 Cataract extraction status, left eye; Z98.41 Cataract extraction status, right eye; Z90.721 Acquired absence of ovaries, unilateral; Z88.6 Allergy status to analgesic agent; Z88.5 Allergy status to narcotic agent; Z88.1 Allergy status to other antibiotic agents; Z88.2 Allergy status to sulfonamides; Z83.3 Family history of diabetes mellitus; Z82.49 Family history of ischemic heart disease and other diseases of the circulatory system; Z82.3 Family history of stroke; Z72.89 Other problems related to lifestyle; Z97.4 Presence of external hearing-aid; Z68.37 Body mass index [BMI] 37.0-37.9, adult
CPT/HCPCS: 36415; 80048; 80053; 81003; 82272; 83605; 83690; 84484; 85014; 85018; 85025; 86140; 87040; 87045; 87046; 87077; 87899; 88305; 93005; 99156; 99157; 99284; A9270-GY; G0378; J0290; J2250; J2270; J2405; J3010